=== PATIENT | female | born 1960 | race American Indian/Alaskan Native ===

== ENCOUNTER 2017-08-23 13:21 | Emergency (ER) | payer SELFPAY ==
[2017-08-23] MEDS ORDERED: NACL 0.9% 1000 ML 1,000 ML IV ONE (14:09)
--- NOTE | 2017-08-23 14:13 | Emergency Department Report ---
ED Dizziness HPI - General Chief Complaint: Syncope Stated Complaint: SYNCOPE Time Seen by Provider: 08/23/17 14:03 Source: patient, EMS Mode of arrival: Stretcher Limitations: No Limitations - History of Present Illness Initial Comments: Patient is 57 years old female with history of diabetes on insulin, hypertension and hyperlipidemia. Patient brought to the ER via EMS for evaluation of one episode of near syncope while patient was standing in the kitchen. Patient stated that she did not passed out so she remember what happen. She denied any headache, chest pain or shortness of breath. Patient denied any weakness, numbness or tingling sensation, no bowel or bladder incontinence. Patient stated that she is back to her baseline. Patient also mentioned that she did not take her insulin today. MD Complaint: dizziness, lightheadedness, near syncope - Related Data Allergies Allergy/AdvReac Type Severity Reaction Status Date / Time Penicillins Allergy Unknown Verified 08/23/17 13:52 Sulfa (Sulfonamide Allergy Unknown Verified 08/23/17 13:52 Antibiotics) ED Review of Systems ROS: Stated complaint: SYNCOPE Other details as noted in HPI Comment: All other systems reviewed and negative Constitutional: denies: chills, fever Respiratory: denies: cough, orthopnea, shortness of breath, SOB with exertion Cardiovascular: denies: chest pain, palpitations, dyspnea on exertion Gastrointestinal: denies: abdominal pain, nausea, vomiting, diarrhea, constipation, hematemesis, melena, hematochezia Genitourinary: denies: urgency, dysuria, frequency, hematuria, abnormal menses Neurological: paresthesias (chronic neuropathy especially bilateral lower extremity). denies: headache, weakness Psychiatric: denies: anxiety, depression, auditory hallucinations, visual hallucinations, homicidal thoughts, suicidal thoughts ED Past Medical Hx - Past Medical History Previous Medical History?: Yes Hx Hypertension: Yes Hx Diabetes: Yes Hx GERD: Yes Hx Psychiatric Treatment: Yes (depression) Additional medical history: high cholesterol, neuropathy - Surgical History Past Surgical History?: Yes Additional Surgical History: , myomectomy - Social History Smoking Status: Former Smoker Substance Use Type: None ED Physical Exam - General Limitations: No Limitations General appearance: alert, in no apparent distress - Head Head exam: Present: atraumatic, normocephalic, normal inspection - Eye Eye exam: Present: normal appearance, PERRL - ENT ENT exam: Present: normal exam, normal orophraynx, mucous membranes moist - Neck Neck exam: Present: normal inspection, full ROM. Absent: tenderness, meningismus, lymphadenopathy, thyromegaly - Respiratory Respiratory exam: Present: normal lung sounds bilaterally. Absent: respiratory distress, wheezes, rales, rhonchi, stridor, chest wall tenderness, accessory muscle use, decreased breath sounds, prolonged expiratory - Cardiovascular Cardiovascular Exam: Present: regular rate, normal rhythm, normal heart sounds - GI/Abdominal GI/Abdominal exam: Present: soft, normal bowel sounds. Absent: distended, tenderness, guarding, rebound, rigid, organomegaly, mass, bruit, pulsatile mass , hernia - Extremities Exam Extremities exam: Present: normal inspection, full ROM, normal capillary refill - Back Exam Back exam: Present: normal inspection, full ROM. Absent: tenderness, CVA tenderness (R), CVA tenderness (L), muscle spasm, paraspinal tenderness, vertebral tenderness, rash noted - Neurological Exam Neurological exam: Present: alert, oriented X3, CN II-XII intact, normal gait, reflexes normal. Absent: motor sensory deficit - Skin Skin exam: Present: warm, intact, normal color ED Course Vital Signs 08/23/17 08/23/17 08/23/17 13:46 14:00 14:32 Temperature 98.2 F Pulse Rate 82 77 77 Respiratory 18 15 14 Rate Blood Pressure 121/67 127/77 117/78 O2 Sat by Pulse 100 100 100 Oximetry 08/23/17 08/23/17 08/23/17 15:00 15:30 16:00 Temperature Pulse Rate 75 75 78 Respiratory 12 12 18 Rate Blood Pressure 143/73 153/81 160/84 O2 Sat by Pulse 100 99 99 Oximetry 08/23/17 08/23/17 16:30 18:11 Temperature Pulse Rate 76 73 Respiratory 12 Rate Blood Pressure 159/87 173/89 O2 Sat by Pulse 100 Oximetry - Reevaluation(s) Reevaluation #1: 08/23/17 19:04 Patient stated that she is feeling much better. No syncopal episode or near syncopal episode observed in the ER. Patient initial troponin came back slightly high repeated it came down. Blood sugar now is 242. Patient is still denying any headache, nausea or vomiting. No weakness or numbness or tingling sensation. I advised patient to be compliant with her insulin and to follow-up with her primary care physician in the next 2-3 days. I also advised her to return to the ER if her symptoms are not improving. ED Medical Decision Making - Lab Data Result diagrams: 08/23/17 14:38 08/23/17 14:38 Critical care attestation.: If time is entered above; I have spent that time in minutes in the direct care of this critically ill patient, excluding procedure time. ED Disposition Clinical Impression: Near syncope, Hyperglycemia Disposition: DC-01 TO HOME OR SELFCARE Is pt being admited?: No Condition: Stable Instructions: Syncope (ED), Diabetic Hyperglycemia (ED) Referrals: PRIMARY CARE, [Primary Care Provider] - 3-5 Days
[2017-08-23] MEDS ORDERED: HumuLIN R IV ONE ×2 (15:13→17:36)
[2017-08-23 15:23] LABS: INR 0.82 (0.87-1.13)
[2017-08-23 15:26] LABS: Hematocrit 42.6 % (30.3-42.9); Hemoglobin 14.1 gm/dl (10.1-14.3); Red Blood Count 5.29 M/mm3 (3.65-5.03)
[2017-08-23 15:27] LABS: Mean Corpuscular HGB Conc 33 % (30-34); Mean Corpuscular Hemoglobin 27 pg (28-32); Mean Corpuscular Volume 81 fl (79-97); Mean Platelet Volume 8.4 fl (6-12); Platelet Count 346 K/mm3 (140-440); Red Cell Distribution Width 12.8 % (13.2-15.2)
[2017-08-23 15:28] LABS: Basophils % (Auto) 0.5 % (0.0-1.8); Eosinophils # (Auto) 0.1 K/mm3 (0.0-0.4); Eosinophils % (Auto) 1.1 % (0.0-4.3); Lymphocytes # (Auto) 2.2 K/mm3 (1.2-5.4); Lymphocytes % (Auto) 33.8 % (13.4-35.0); Monocytes # (Auto) 0.3 K/mm3 (0.0-0.8)
[2017-08-23 15:43] LABS: Albumin 2.6 g/dL (3.9-5); Calcium 9.1 mg/dL (8.4-10.2)
[2017-08-23 16:07] LABS: Chol/HDL Ratio 1.8 %
[2017-08-23 17:47] LABS: Bacteria,Urine 1+ /HPF (Negative); Bilirubin,Urine NEG (Negative); Blood,Urine NEG (Negative); Color,Urine Yellow (Yellow); Mucus,Urine FEW /HPF; Urobilinogen,Urine < 2.0 mg/dL (<2.0)
[2017-08-23 17:48] LABS: Protein,Urine >500 mg/dL (Negative)
[2017-08-23] MEDS ORDERED: CATAPRES PO ONE ×2 (18:00→18:06)
[2017-08-23 19:44] VITALS: BP 156/82
--- NOTE | 2017-08-24 14:30 | Cat Scan Report ---
FINAL REPORT PROCEDURE: CT HEAD/BRAIN WO CON TECHNIQUE: Computerized tomography of the head was performed without contrast material. HISTORY: Syncope COMPARISON: No prior studies are available for comparison. FINDINGS: No CT evidence of intracranial mass, hemorrhage, acute territorial infarction, or hydrocephalus. Calvarium is intact. The visualized paranasal sinuses and mastoids are aerated. IMPRESSION: No CT evidence of acute intracranial abnormality
== END 2017-08-23 19:01 | disposition home or self-care (01) ==
LOC: ED 13:21
DX: E11.65 Type 2 diabetes mellitus with hyperglycemia (principal); I10 Essential (primary) hypertension; K21.9 Gastro-esophageal reflux disease without esophagitis; E78.00 Pure hypercholesterolemia, unspecified; F32.2 Major depressive disorder, single episode, severe without psychotic features; Z87.891 Personal history of nicotine dependence; Z88.0 Allergy status to penicillin; Z88.2 Allergy status to sulfonamides; Z79.4 Long term (current) use of insulin
CPT/HCPCS: 36415; 70450; 80053; 80061; 81001; 82962; 83735; 84484; 85025; 85379; 85610; 93005; 93010; 96361; 96374; 96376; 99285; J7030; J1815

== ENCOUNTER 2017-09-15 12:29 | Emergency (ER) | payer SELFPAY ==
[2017-09-15 13:21] LABS: Basophils % (Auto) 0.7 % (0.0-1.8); Eosinophils # (Auto) 0.1 K/mm3 (0.0-0.4); Eosinophils % (Auto) 1.9 % (0.0-4.3); Hematocrit 37.6 % (30.3-42.9); Hemoglobin 12.1 gm/dl (10.1-14.3); Lymphocytes # (Auto) 2.5 K/mm3 (1.2-5.4); Lymphocytes % (Auto) 40.5 % (13.4-35.0); Mean Corpuscular HGB Conc 32 % (30-34); Mean Corpuscular Hemoglobin 26 pg (28-32); Mean Corpuscular Volume 81 fl (79-97); Monocytes # (Auto) 0.4 K/mm3 (0.0-0.8); Monocytes % (Auto) 5.8 % (0.0-7.3); Platelet Count 396 K/mm3 (140-440); Red Blood Count 4.63 M/mm3 (3.65-5.03); Red Cell Distribution Width 12.9 % (13.2-15.2)
[2017-09-15 15:11] LABS: Alanine Aminotransferase 19 units/L (7-56); Albumin 2.6 g/dL (3.9-5); BUN/Creatinine Ratio 33; Blood Urea Nitrogen 33 mg/dL (7-17); Calcium 9.4 mg/dL (8.4-10.2); Hemolysis Index 20
[2017-09-15 17:27] LABS: Bilirubin,Urine NEG (Negative); Blood,Urine NEG (Negative); Color,Urine Yellow (Yellow); Urobilinogen,Urine < 2.0 mg/dL (<2.0)
[2017-09-15 17:33] LABS: Protein,Urine >500 mg/dL (Negative)
[2017-09-15] MEDS ORDERED: LIDOCAINE VISCOUS 2% PO ONE (22:17)
[2017-09-15] MEDS ORDERED: ALUM-MAG HYDROX-SIMETH 200-200-20MG/5ML PO ONE (22:18)
--- NOTE | 2017-09-15 23:14 | Emergency Department Report ---
ED Abdominal Pain HPI - General Chief Complaint: Abdominal Pain Stated Complaint: SHARP PAIN/RIGHT SIDE Time Seen by Provider: 09/15/17 21:25 Source: patient Mode of arrival: Ambulatory Limitations: No Limitations - History of Present Illness Initial Comments: Ms becerra is a 57 year-old woman with hx of IDDM who presents with abdominal pain. Left upper quadrant, epigastric pain. No nausea, no vomiting. Worse when supine, better when sitting up. Normal bowel movements. No pain with urination. hysterectomy. No vaginal d/c or bleeding. MD Complaint: abdominal pain Onset/Timin -: days(s) Location: LUQ, epigastric Radiation: none Migration to: no migration Severity: moderate Quality: aching Consistency: constant Associated Symptoms: denies other symptoms - Related Data Previous Rx's Medication Instructions Recorded Last Taken Type Famotidine 20 mg PO QDAY #30 tablet 09/16/17 Unknown Rx Allergies Allergy/AdvReac Type Severity Reaction Status Date / Time Penicillins Allergy Unknown Verified 08/23/17 13:52 Sulfa (Sulfonamide Allergy Unknown Verified 08/23/17 13:52 Antibiotics) ED Review of Systems ROS: Stated complaint: SHARP PAIN/RIGHT SIDE Other details as noted in HPI Comment: All other systems reviewed and negative ED Past Medical Hx - Past Medical History Previous Medical History?: Yes Hx Hypertension: Yes Hx Diabetes: Yes Hx GERD: Yes Hx Psychiatric Treatment: Yes (depression) Additional medical history: high cholesterol, neuropathy - Surgical History Past Surgical History?: Yes Additional Surgical History: , myomectomy - Social History Smoking Status: Former Smoker Substance Use Type: None - Medications Home Medications: Home Medications Medication Instructions Recorded Confirmed Last Taken Type Famotidine 20 mg PO QDAY #30 tablet 09/16/17 Unknown Rx ED Physical Exam - General Limitations: No Limitations General appearance: alert, in no apparent distress - Head Head exam: Present: atraumatic, normocephalic - Eye Eye exam: Present: normal appearance - ENT ENT exam: Present: mucous membranes moist - Neck Neck exam: Present: normal inspection - Respiratory Respiratory exam: Present: normal lung sounds bilaterally. Absent: respiratory distress - Cardiovascular Cardiovascular Exam: Present: regular rate, normal rhythm. Absent: systolic murmur, diastolic murmur, rubs, gallop - GI/Abdominal GI/Abdominal exam: Present: soft, tenderness (epigastric, LUQ. non-palpable liver). Absent: distended, guarding, rebound, rigid, mass - Extremities Exam Extremities exam: Present: normal inspection - Back Exam Back exam: Present: normal inspection. Absent: tenderness - Neurological Exam Neurological exam: Present: alert, oriented X3 - Psychiatric Psychiatric exam: Present: normal affect, normal mood - Skin Skin exam: Present: warm, dry, intact, normal color. Absent: rash ED Course Vital Signs 09/15/17 09/15/17 12:38 21:56 Temperature 97.9 F 97.8 F Pulse Rate 65 60 Respiratory 16 14 Rate Blood Pressure 174/82 Blood Pressure 175/88 [Left] O2 Sat by Pulse 100 Oximetry ED Medical Decision Making - Lab Data Result diagrams: 09/15/17 12:50 09/15/17 12:50 - Radiology Data Radiology results: report reviewed US Abdomen Limited Imrpession: Probable fatty infiltration of the liver increased renal cortical echogenicity - Medical Decision Making Ms Becerra is a 57 year-old woman with hx of IDDM who presents with epigastric, LUQ pain. 2 days. No n/v. normal PO. Some symptoms sound consistent with GERD ( positional). Exam with RUQ and epigastric ttp. Not peritonitic. Patient has not PCP and poor ability for follow-up. DDX: GERD, gastritis, biliary disease, pancreatitis, hepatitis. Labs wnl, including lipase. Ordered RUQ US as patietn has limited entry point to health care system. RUQ US with fatty liver disease, normal gall bladder and biliary tract. Pain improved with GI cocktail. Will also give H2 lottie. Will start her on H2 lottie and refer to PCP here. DC to home. Given care instructions and return precautions. Critical care attestation.: If time is entered above; I have spent that time in minutes in the direct care of this critically ill patient, excluding procedure time. ED Disposition Clinical Impression: Abdominal pain Qualifiers: Abdominal location: epigastric Qualified Code(s): R10.13 - Epigastric pain Disposition: DC-01 TO HOME OR SELFCARE Is pt being admited?: No Does the pt Need Aspirin: No Condition: Stable Instructions: Gastroesophageal Reflux Disease (ED), Abdominal Pain (ED), Gastritis (ED) Prescriptions: Famotidine 20 mg PO QDAY #30 tablet Referrals: PRIMARY CARE, [Primary Care Provider] - 3-5 Days
[2017-09-16] MEDS ORDERED: PEPCID PO ONE (00:23)
--- NOTE | 2017-09-16 01:00 | Ultrasound Report ---
FINAL REPORT PROCEDURE: US ABDOMEN LIMITED TECHNIQUE: Real-time sonography in multiple planes of the gallbladder fossa and CBD with imaging of the adjacent liver, pancreas, and right kidney was performed with image documentation. CPT 41460 HISTORY: RUQ pain COMPARISON: No prior studies are available for comparison. FINDINGS: Liver: There is coarse echotexture and increased echogenicity, suggesting fatty infiltration. This limits resolution for focal hepatic lesions. Gallbladder: Fluid filled. No gallstones, wall thickening, pericholecystic fluid, or sonographic Charlton's sign . Intrahepatic bile ducts: Normal . Extrahepatic bile ducts: Common bile duct measures 3 millimeters in caliber. Pancreas: Normal as visualized with suboptimal depiction of the pancreatic tail. Right kidney: Increased renal cortical echogenicity, which can be seen with medical renal disease. Other: No free fluid. IMPRESSION: Probable fatty infiltration of the liver. Increased renal cortical echogenicity can be seen with medical renal disease. Correlate clinically
[2017-09-16 01:04] VITALS: BP 187/76
== END 2017-09-16 01:03 | disposition home or self-care (01) ==
LOC: ED 12:29
DX: R10.12 Left upper quadrant pain (principal); I10 Essential (primary) hypertension; K21.9 Gastro-esophageal reflux disease without esophagitis; E78.00 Pure hypercholesterolemia, unspecified; E11.40 Type 2 diabetes mellitus with diabetic neuropathy, unspecified; Z87.891 Personal history of nicotine dependence; Z88.2 Allergy status to sulfonamides
CPT/HCPCS: 36415; 76705; 80053; 81001; 83690; 85025; 99284

== ENCOUNTER 2017-11-02 13:36 | Emergency (ER) | payer SELFPAY ==
[2017-11-02 13:45] VITALS: BP 175/81
--- NOTE | 2017-11-02 15:12 | Emergency Department Report ---
ED Back Pain/Injury HPI - General Chief Complaint: Back Pain/Injury Stated Complaint: LOWER BACK PAIN Time Seen by Provider: 11/02/17 14:59 Source: patient Limitations: No Limitations - History of Present Illness MD Complaint: back pain -: week(s) (3) Similar Symptoms Previously: Yes Radiation: none Severity: moderate Severity scale (0 -10): 6 Quality: burning, sharp Consistency: constant Improves With: none Worsens With: supine, sitting upright, walking Context: turning/twisting, bending Associated Symptoms: denies other symptoms, other (or urinary sympoms). denies : weakness, chest pain, numbness, cough, difficulty urinating, diaphoresis, incontinence, fever/chills, constipation, headaches, abdominal pain, loss of appetite, nausea/vomiting, rash, seizure, shortness of breath, syncope - Related Data Previous Rx's Medication Instructions Recorded Last Taken Type Famotidine 20 mg PO QDAY #30 tablet 09/16/17 Unknown Rx Ibuprofen [Motrin] 600 mg PO Q8H PRN #20 tablet 11/02/17 Unknown Rx methOCARBAMOL [Robaxin TAB] 500 mg PO Q6H PRN #15 tablet 11/02/17 Unknown Rx Allergies Allergy/AdvReac Type Severity Reaction Status Date / Time Penicillins Allergy Unknown Verified 11/02/17 13:43 Sulfa (Sulfonamide Allergy Unknown Verified 11/02/17 13:43 Antibiotics) ED Review of Systems ROS: Stated complaint: LOWER BACK PAIN Other details as noted in HPI Comment: All other systems reviewed and negative ED Past Medical Hx - Past Medical History high cholesterol, neuropathy ED Back Pain Physical Exam - Exam General: Vital signs noted. No distress. Alert and acting appropriately. Back/Abdomen: Yes Perilumbar Tenderness, No Abdominal Tenderness, No Perithoracic Tenderness, No Sacroiliac Tenderness, No Flank Tenderness, No Straight Leg Raise Pain Neuro: Yes Normal Sensation, Yes Normal DTR's, Yes Normal Gait, No Motor Weakness ED Course Vital Signs 11/02/17 13:43 Temperature 98.6 F Pulse Rate 88 Respiratory 18 Rate Blood Pressure 175/81 O2 Sat by Pulse 100 Oximetry ED Medical Decision Making - Medical Decision Making Patient will be seen by financial counselor regarding eligibility for Medicaid. Patient also be started on muscle relaxant for lower back pain and referred to orthopedics [facility]. Critical care attestation.: If time is entered above; I have spent that time in minutes in the direct care of this critically ill patient, excluding procedure time. ED Disposition Clinical Impression: Chronic back pain Qualifiers: Back pain location: low back pain Back pain laterality: bilateral Sciatica presence: without sciatica Qualified Code(s): M54.5 - Low back pain; G89.29 - Other chronic pain Disposition: TO HOME OR SELFCARE Is pt being admited?: No Does the pt Need Aspirin: No Condition: Stable Instructions: Low Back Strain (ED) Referrals: [facility] [Outside] - 3-5 Days ISELA CARDENAS MD [Staff Physician] - 3-5 Days Time of Disposition: 15:12
== END 2017-11-02 15:20 | disposition home or self-care (01) ==
LOC: ED 13:36
DX: M54.5 Low back pain (principal); G89.29 Other chronic pain; E78.00 Pure hypercholesterolemia, unspecified; G62.9 Polyneuropathy, unspecified; Z88.0 Allergy status to penicillin; Z88.2 Allergy status to sulfonamides
CPT/HCPCS: 99282

== ENCOUNTER 2018-10-30 11:20 | Emergency (ER) | payer SELFPAY ==
[2018-10-30 11:46] VITALS: BP 166/74
--- NOTE | 2018-10-30 11:46 | Event Note ---
ED Screening Note Date of service: 10/30/18 Time: 11:42 ED Screening Note: This is a 58 y.o. F. that presents to the ER with BLE edema for 1 month. PMH DM2, HTN, polyneuropathy, & HLD. This initial assessment/diagnostic orders/clinical plan/treatment(s) is/are subject to change based on patients health status, clinical progression and re- assessment by fellow clinical providers in the ED. Further treatment and workup at subsequent clinical providers discretion. Patient/guardian urged not to elope from the ED as their condition may be serious if not clinically assessed and managed. Initial orders include: Labs
[2018-10-30 12:03] LABS: Basophils # (Auto) 0.1 K/mm3 (0.0-0.1); Basophils % (Auto) 0.8 % (0.0-1.8); Eosinophils # (Auto) 0.1 K/mm3 (0.0-0.4); Eosinophils % (Auto) 1.6 % (0.0-4.3); Hemoglobin 12.5 gm/dl (10.1-14.3); Lymphocytes # (Auto) 2.4 K/mm3 (1.2-5.4); Lymphocytes % (Auto) 30.5 % (13.4-35.0); Mean Corpuscular HGB Conc 32 % (30-34); Mean Corpuscular Volume 81 fl (79-97); Monocytes # (Auto) 0.4 K/mm3 (0.0-0.8); Monocytes % (Auto) 5.1 % (0.0-7.3); Platelet Count 367 K/mm3 (140-440); Red Blood Count 4.81 M/mm3 (3.65-5.03); Red Cell Distribution Width 14.3 % (13.2-15.2)
[2018-10-30 12:27] LABS: Albumin 2.3 g/dL (3.9-5); Calcium 8.1 mg/dL (8.4-10.2)
--- NOTE | 2018-10-30 12:54 | Emergency Department Report ---
ED General Adult HPI - General Chief complaint: Extremity Injury, Lower Stated complaint: LEG PAIN/SWOLLEN Time Seen by Provider: 10/30/18 11:42 Source: patient Mode of arrival: Ambulatory Limitations: No Limitations - History of Present Illness Initial comments: Patient is a 58-year-old Female with a past medical history diabetes and hypertension who is presenting with leg swelling for approximately 1 month. Patient was urged to come to the hospital by her brother. Patient states that swelling associated with pain as 7 out of 10 in severity just feels very tight. Patient denies any chest pain shortness of breath fevers chills nausea vomiting. She denies any long travel or recent surgeries - Related Data Previous Rx's Medication Instructions Recorded Last Taken Type Famotidine 20 mg PO QDAY #30 tablet 09/16/17 Unknown Rx Ibuprofen [Motrin] 600 mg PO Q8H PRN #20 tablet 11/02/17 Unknown Rx methOCARBAMOL [Robaxin TAB] 500 mg PO Q6H PRN #15 tablet 11/02/17 Unknown Rx Furosemide [Lasix] 20 mg PO QDAY #7 tablet 10/30/18 Unknown Rx Lisinopril [Zestril TAB] 5 mg PO QDAY #30 tablet 10/30/18 Unknown Rx amLODIPine [Norvasc] 10 mg PO DAILY #30 tab 10/30/18 Unknown Rx Allergies Allergy/AdvReac Type Severity Reaction Status Date / Time Penicillins Allergy Unknown Verified 10/30/18 11:25 Sulfa (Sulfonamide Allergy Unknown Verified 10/30/18 11:25 Antibiotics) ED Review of Systems ROS: Stated complaint: LEG PAIN/SWOLLEN Other details as noted in HPI Comment: All other systems reviewed and negative ED Past Medical Hx - Past Medical History Previous Medical History?: Yes Hx Hypertension: Yes Hx Diabetes: Yes Hx GERD: Yes Hx Psychiatric Treatment: Yes (depression) Additional medical history: high cholesterol, neuropathy - Surgical History Past Surgical History?: Yes Additional Surgical History: , myomectomy, hysterectomy - Social History Smoking Status: Never Smoker Substance Use Type: None - Medications Home Medications: Home Medications Medication Instructions Recorded Confirmed Last Taken Type Famotidine 20 mg PO QDAY #30 tablet 09/16/17 Unknown Rx Ibuprofen [Motrin] 600 mg PO Q8H PRN #20 tablet 11/02/17 Unknown Rx methOCARBAMOL [Robaxin TAB] 500 mg PO Q6H PRN #15 tablet 11/02/17 Unknown Rx Furosemide [Lasix] 20 mg PO QDAY #7 tablet 10/30/18 Unknown Rx Lisinopril [Zestril TAB] 5 mg PO QDAY #30 tablet 10/30/18 Unknown Rx amLODIPine [Norvasc] 10 mg PO DAILY #30 tab 10/30/18 Unknown Rx ED Physical Exam - General Limitations: No Limitations General appearance: alert, in no apparent distress - Head Head exam: Present: atraumatic, normocephalic - Eye Eye exam: Present: normal appearance - ENT ENT exam: Present: mucous membranes moist - Neck Neck exam: Present: normal inspection - Respiratory Respiratory exam: Present: normal lung sounds bilaterally. Absent: respiratory distress, wheezes, rales, rhonchi - Cardiovascular Cardiovascular Exam: Present: regular rate, normal rhythm. Absent: systolic murmur, diastolic murmur, rubs, gallop - GI/Abdominal GI/Abdominal exam: Present: soft, normal bowel sounds. Absent: distended, tenderness, guarding, rebound - Extremities Exam Extremities exam: Present: normal inspection, other (2+ edema bilateral lower extremities at the level of the knee) - Back Exam Back exam: Present: normal inspection - Neurological Exam Neurological exam: Present: alert, oriented X3 - Psychiatric Psychiatric exam: Present: normal affect, normal mood - Skin Skin exam: Present: warm, dry, intact, normal color. Absent: rash ED Course Vital Signs 10/30/18 11:43 Temperature 98.6 F Pulse Rate 74 Respiratory 16 Rate Blood Pressure 166/74 Blood Pressure 166/74 [Left] O2 Sat by Pulse 100 Oximetry ED Medical Decision Making - Lab Data Result diagrams: 10/30/18 11:48 10/30/18 11:48 Lab Results 10/30/18 10/30/18 10/30/18 Range/Units 11:48 11:48 11:48 WBC 7.9 (4.5-11.0) K/mm3 RBC 4.81 (3.65-5.03) M/mm3 Hgb 12.5 (10.1-14.3) gm/dl Hct 39.0 (30.3-42.9) % MCV 81 (79-97) fl MCH 26 L (28-32) pg MCHC 32 (30-34) % RDW 14.3 (13.2-15.2) % Plt Count 367 (140-440) K/mm3 Lymph % (Auto) 30.5 (13.4-35.0) % [place] % (Auto) 5.1 (0.0-7.3) % Eos % (Auto) 1.6 (0.0-4.3) % Baso % (Auto) 0.8 (0.0-1.8) % Lymph # 2.4 (1.2-5.4) K/mm3 [place] # 0.4 (0.0-0.8) K/mm3 Eos # 0.1 (0.0-0.4) K/mm3 Baso # 0.1 (0.0-0.1) K/mm3 Seg Neutrophils % 62.0 (40.0-70.0) % Seg Neutrophils # 4.9 (1.8-7.7) K/mm3 Sodium 138 (137-145) mmol/L Potassium 4.3 (3.6-5.0) mmol/L Chloride 107.2 H (98-107) mmol/L Carbon Dioxide 20 L (22-30) mmol/L Anion Gap 15 mmol/L BUN 28 H (7-17) mg/dL Creatinine 1.8 H (0.7-1.2) mg/dL Estimated GFR 35 ml/min BUN/Creatinine Ratio 16 % Glucose 393 H (65-100) mg/dL Calcium 8.1 L (8.4-10.2) mg/dL Total Bilirubin 0.20 (0.1-1.2) mg/dL AST 9 (5-40) units/L ALT 8 (7-56) units/L Alkaline Phosphatase 93 (35-129) units/L NT-Pro-B Natriuret Pep 1545 H (0-900) pg/mL Total Protein 5.9 L (6.3-8.2) g/dL Albumin 2.3 L (3.9-5) g/dL Albumin/Globulin Ratio 0.6 % - Radiology Data Radiology results: image reviewed (no pulm edema on CXR) - Medical Decision Making Patient is a 58-year-old [place] female who is presenting with lower extremity edema. Patient has several factors that I do believe her injury to her edema. Patient has had poorly controlled blood pressure and this likely is a factor and her swelling developing. Patient likely with early congestive heart failure. Patient also has some renal insufficiency that it also is a factor in the patient's swelling. Patient will have lisinopril added to her blood pressure regimen. Patient started on Lasix. Patient to have follow-up with cardiology. Critical care attestation.: If time is entered above; I have spent that time in minutes in the direct care of this critically ill patient, excluding procedure time. ED Disposition Clinical Impression: Leg edema, Hypertensive urgency, malignant Disposition: DC-01 TO HOME OR SELFCARE Is pt being admited?: No Does the pt Need Aspirin: No Condition: Stable Instructions: Chronic Hypertension (ED), Heart Failure (ED) Additional Instructions: Please follow up with the header up. You'll likely need an ultrasound of the heart called an echocardiogram to determine if you truly have congestive heart failure Referrals: ANNA FLEMING MD [Staff Physician] - 3-5 Days Time of Disposition: 12:56
--- NOTE | 2018-10-30 12:55 | XRay Report ---
CHEST 1 VIEW INDICATION / CLINICAL INFORMATION: edema, chest pain. COMPARISON: None available. FINDINGS: SUPPORT DEVICES: None. HEART / MEDIASTINUM: No significant abnormality. LUNGS / PLEURA: No significant pulmonary or pleural abnormality. Minimal blunting of the left costoph renic angle representing possible tiny effusion. No pneumothorax. ADDITIONAL FINDINGS: No significant additional findings. IMPRESSION: 1. Possible tiny left pleural effusion. Signer Name: Boogie Hurley MD Signed: 10/30/2018 12:51 PM Workstation Name: [id number]
== END 2018-10-30 13:31 | disposition home or self-care (01) ==
LOC: ED 11:20
DX: R60.0 Localized edema (principal); I16.0 Hypertensive urgency; I10 Essential (primary) hypertension; E11.9 Type 2 diabetes mellitus without complications; K21.9 Gastro-esophageal reflux disease without esophagitis; F32.9 Major depressive disorder, single episode, unspecified; Z88.0 Allergy status to penicillin; Z88.2 Allergy status to sulfonamides; Z90.49 Acquired absence of other specified parts of digestive tract; Z98.890 Other specified postprocedural states
CPT/HCPCS: 36415; 71045; 80053; 83880; 85025

== ENCOUNTER 2018-12-25 19:06 | Emergency (ER) | payer OTHER ==
[2018-12-25] MEDS ORDERED: cloNIDine 0.1 MG TAB PO ONE (20:13)
--- NOTE | 2018-12-25 20:13 | Emergency Department Report ---
ED General Adult HPI - General Chief complaint: High BP Stated complaint: SWELLING IN LEGS/HBP Time Seen by Provider: 12/25/18 19:55 Source: EMS Mode of arrival: Stretcher Limitations: No Limitations - History of Present Illness Initial comments: This is a 58-year-old female with a history of hypertension and diabetes with no compliance with medication who presents to ED today due to elevated blood pressure and bilateral lower leg swelling times couple of days. Patient states that she is not able to take medication as she isn't improved 40 because she has no insurance. Patient states she usually takes insulin 70/30 for her diabetes and takes 3 medications for hypertension which is currently not taken. Patient denies chest pain, shortness of breath, headache, blurred vision, abdominal pain or any other problems. She had made some pain on her bilateral lower legs from the swelling Patient states she followed up with cardiology last month and identical cardiology done the stress test and states it was normal findings. - Related Data Previous Rx's Medication Instructions Recorded Last Taken Type Furosemide [Lasix TAB] 40 mg PO DAILY@0600 #30 tablet 11/20/18 Unknown Rx Gabapentin [Neurontin] 400 mg PO TID capsule 11/20/18 Unknown Rx Lisinopril [Zestril TAB] 5 mg PO QDAY #30 tablet 11/20/18 Unknown Rx Metoprolol [Lopressor TAB] 100 mg PO QDAY #30 tablet 11/20/18 Unknown Rx Triamter/Hctz 37.5-25 mg 2 each PO QAM tablet 11/20/18 Unknown Rx [Maxzide-25] hydrALAZINE [Apresoline TAB] 100 mg PO BID #60 tab 11/20/18 Unknown Rx traMADol [Ultram 50 MG tab] 50 mg PO Q12HR PRN #10 tablet 11/20/18 Unknown Rx traZODone [Desyrel] 100 mg PO QHS #30 tablet 11/20/18 Unknown Rx AtorvaSTATin [Lipitor] 80 mg PO QHS #30 tablet 12/26/18 Unknown Rx Gabapentin [Neurontin] 400 mg PO Q8HR #20 cap 12/26/18 Unknown Rx Insulin Aspart Prot/Aspart(Nf) 10 units SQ QAM #300 units 12/26/18 Unknown Rx [NovoLOG Mix 70/30 VIAL] Triamterene/Hydrochlorothiazid 1 each PO QDAY #30 tablet 12/26/18 Unknown Rx [Triamterene-Hctz 75-50 mg Tab] amLODIPine [Norvasc] 10 mg PO DAILY #30 tablet 12/26/18 Unknown Rx Allergies Allergy/AdvReac Type Severity Reaction Status Date / Time Penicillins Allergy Unknown Verified 10/30/18 11:25 Sulfa (Sulfonamide Allergy Unknown Verified 10/30/18 11:25 Antibiotics) ED Review of Systems ROS: Stated complaint: SWELLING IN LEGS/HBP Other details as noted in HPI Comment: All other systems reviewed and negative ED Past Medical Hx - Past Medical History Hx Hypertension: Yes Hx Diabetes: Yes Hx GERD: Yes Hx Psychiatric Treatment: Yes (depression) Additional medical history: high cholesterol, neuropathy - Surgical History Additional Surgical History: , myomectomy, hysterectomy - Social History Smoking Status: Unknown if ever smoked - Medications Home Medications: Home Medications Medication Instructions Recorded Confirmed Last Taken Type Furosemide [Lasix TAB] 40 mg PO DAILY@0600 #30 tablet 11/20/18 Unknown Rx Gabapentin [Neurontin] 400 mg PO TID capsule 11/20/18 Unknown Rx Lisinopril [Zestril TAB] 5 mg PO QDAY #30 tablet 11/20/18 Unknown Rx Metoprolol [Lopressor TAB] 100 mg PO QDAY #30 tablet 11/20/18 Unknown Rx Triamter/Hctz 37.5-25 mg 2 each PO QAM tablet 11/20/18 Unknown Rx [Maxzide-25] hydrALAZINE [Apresoline TAB] 100 mg PO BID #60 tab 11/20/18 Unknown Rx traMADol [Ultram 50 MG tab] 50 mg PO Q12HR PRN #10 tablet 11/20/18 Unknown Rx traZODone [Desyrel] 100 mg PO QHS #30 tablet 11/20/18 Unknown Rx AtorvaSTATin [Lipitor] 80 mg PO QHS #30 tablet 12/26/18 Unknown Rx Gabapentin [Neurontin] 400 mg PO Q8HR #20 cap 12/26/18 Unknown Rx Insulin Aspart Prot/Aspart(Nf) 10 units SQ QAM #300 units 12/26/18 Unknown Rx [NovoLOG Mix 70/30 VIAL] Triamterene/Hydrochlorothiazid 1 each PO QDAY #30 tablet 12/26/18 Unknown Rx [Triamterene-Hctz 75-50 mg Tab] amLODIPine [Norvasc] 10 mg PO DAILY #30 tablet 12/26/18 Unknown Rx ED Physical Exam - General Limitations: No Limitations General appearance: alert, in no apparent distress - Head Head exam: Present: atraumatic, normocephalic - Eye Eye exam: Present: normal appearance - ENT ENT exam: Present: mucous membranes moist - Neck Neck exam: Present: normal inspection - Respiratory Respiratory exam: Present: normal lung sounds bilaterally. Absent: respiratory distress, chest wall tenderness - Cardiovascular Cardiovascular Exam: Present: regular rate, normal rhythm. Absent: systolic murmur, diastolic murmur, rubs, gallop - GI/Abdominal GI/Abdominal exam: Present: soft, normal bowel sounds. Absent: distended, tenderness - Extremities Exam Extremities exam: Present: normal inspection, full ROM, pedal edema (3 + pitting Edema to bilateral feet and lower legs) - Back Exam Back exam: Present: normal inspection - Neurological Exam Neurological exam: Present: alert, oriented X3 - Psychiatric Psychiatric exam: Present: normal affect, normal mood - Skin Skin exam: Present: warm, dry, intact, normal color. Absent: rash ED Course Vital Signs 12/25/18 12/25/18 12/25/18 19:48 20:18 21:00 Temperature 98.1 F Pulse Rate 81 83 80 Respiratory 14 11 L Rate Blood Pressure 211/100 188/99 Blood Pressure 196/90 [Left] O2 Sat by Pulse 99 Oximetry 12/25/18 12/25/18 12/25/18 22:00 23:00 23:47 Temperature Pulse Rate 84 76 75 Respiratory 19 15 16 Rate Blood Pressure 183/83 146/78 146/78 Blood Pressure [Left] O2 Sat by Pulse 100 100 Oximetry 12/26/18 01:00 Temperature Pulse Rate 67 Respiratory 13 Rate Blood Pressure 158/78 Blood Pressure [Left] O2 Sat by Pulse 100 Oximetry ED Medical Decision Making - Lab Data Result diagrams: 12/25/18 21:01 12/25/18 21:01 - Medical Decision Making 58-year-old female with chronic kidney disease, diabetes and hypertension who presents with bilateral pedal edema 2 days. Labs are unchanged from previous visits. Troponin elevated at 0.108, repeat troponin shows decrease. viewed previous lab results which shows troponin was elevated. This is most likely due to his history of chronic kidney disease with diabetes Patient received Lasix 60 mg in the ED. Patient received clonidine 0.1 mg reduced the pressure in the ED. Patient is in no acute distress at this time of reexamination. He is resting comfortably ED. Patient states that she would like to see social work as she is unable to care for herself and wants resources to help with home health services. Vital signs are normal. Patient is in no acute distress She is awaiting mental health social worker Critical care attestation.: If time is entered above; I have spent that time in minutes in the direct care of this critically ill patient, excluding procedure time. ED Disposition Clinical Impression: Chronic kidney disease (CKD), Uncontrolled hypertension Disposition: TO HOME OR SELFCARE Is pt being admited?: No Does the pt Need Aspirin: No Condition: Stable Instructions: Lymphedema (ED), Leg Edema (ED), Chronic Kidney Disease (ED), Hypertension (ED) Additional Instructions: Make sure to follow up with the primary care physician as discussed. Take all your medications as you've been prescribed. If you have any worsening symptoms or develop new symptoms please return to ED immediately. Prescriptions: AtorvaSTATin [Lipitor] 80 mg PO QHS #30 tablet Gabapentin [Neurontin] 400 mg PO Q8HR #20 cap amLODIPine [Norvasc] 10 mg PO DAILY #30 tablet Insulin Aspart Prot/Aspart(Nf) [NovoLOG Mix 70/30 VIAL] 10 units SQ QAM #300 units Triamterene/Hydrochlorothiazid [Triamterene-Hctz 75-50 mg Tab] 1 each PO QDAY #30 tablet Referrals: PRIMARY CARE, [Primary Care Provider] - 3-5 Days [facility] [Provider Group] - 3-5 Days [facility] [Provider Group] - 3-5 Days Forms: Work/School Release Form(ED)
[2018-12-25] MEDS ORDERED: FUROSEMIDE 20 MG TAB PO ONE (20:16)
[2018-12-25] MEDS ORDERED: INSULIN REGULAR, HUMAN 100 UNITS/1 ML IV ONE (20:44)
[2018-12-25 21:16] LABS: Basophils # (Auto) 0.1 K/mm3 (0.0-0.1); Basophils % (Auto) 0.7 % (0.0-1.8); Eosinophils # (Auto) 0.1 K/mm3 (0.0-0.4); Eosinophils % (Auto) 1.4 % (0.0-4.3); Hematocrit 39.7 % (30.3-42.9); Hemoglobin 12.9 gm/dl (10.1-14.3); Lymphocytes # (Auto) 2.7 K/mm3 (1.2-5.4); Mean Corpuscular HGB Conc 32 % (30-34); Mean Corpuscular Volume 81 fl (79-97); Monocytes # (Auto) 0.5 K/mm3 (0.0-0.8); Monocytes % (Auto) 5.8 % (0.0-7.3); Platelet Count 322 K/mm3 (140-440); Red Blood Count 4.89 M/mm3 (3.65-5.03)
[2018-12-25 21:30] LABS: Alanine Aminotransferase 8 units/L (7-56); BUN/Creatinine Ratio 14; Blood Urea Nitrogen 36 mg/dL (7-17); Calcium 7.8 mg/dL (8.4-10.2); Hemolysis Index 31
[2018-12-25 21:31] LABS: INR 0.85 (0.87-1.13)
[2018-12-25 21:50] LABS: Creatine Kinase MB 6.7 ng/mL (0.0-4.0)
[2018-12-25 22:33] LABS: LDL Cholesterol,Direct 377 mg/dL (50-130)
[2018-12-25 22:35] LABS: Chol/HDL Ratio 3.68 %; HDL Cholesterol 135 mg/dL (40-59)
[2018-12-26] MEDS ORDERED: INSULIN REGULAR, HUMAN 100 UNITS/1 ML IV ONE (00:27)
[2018-12-26 09:35] VITALS: BP 188/98
== END 2018-12-26 12:47 | disposition home or self-care (01) ==
LOC: ED 19:06
DX: I12.0 Hypertensive chronic kidney disease with stage 5 chronic kidney disease or end stage renal disease (principal); E11.22 Type 2 diabetes mellitus with diabetic chronic kidney disease; N18.9 Chronic kidney disease, unspecified; E11.40 Type 2 diabetes mellitus with diabetic neuropathy, unspecified; K21.9 Gastro-esophageal reflux disease without esophagitis; E78.00 Pure hypercholesterolemia, unspecified; F32.9 Major depressive disorder, single episode, unspecified; Z90.710 Acquired absence of both cervix and uterus; Z79.899 Other long term (current) drug therapy; Z88.0 Allergy status to penicillin; Z88.2 Allergy status to sulfonamides; Z79.4 Long term (current) use of insulin
CPT/HCPCS: 36415; 80053; 80061; 82550; 82553; 82962; 83880; 84484; 85025; 85610; 85730; 93005; 93010; 96374; J1815

== ENCOUNTER 2019-01-09 15:34 | Emergency (ER) | payer SELFPAY ==
--- NOTE | 2019-01-09 16:02 | Event Note ---
ED Screening Note Date of service: 01/09/19 Time: 15:59 ED Screening Note: This is a 58 y.o. F. that presents to the ER with dyspnea, BLE swelling and low back pain. PMH OF HTN, CKD, DM Patient states she get sob after walking 4-5 steps. This initial assessment/diagnostic orders/clinical plan/treatment(s) is/are subject to change based on patients health status, clinical progression and re- assessment by fellow clinical providers in the ED. Further treatment and workup at subsequent clinical providers discretion. Patient/guardian urged not to elope from the ED as their condition may be serious if not clinically assessed and managed. Initial orders include: Labs, EKG, and CXR
[2019-01-09 16:57] LABS: Basophils # (Auto) 0.1 K/mm3 (0.0-0.1); Eosinophils # (Auto) 0.1 K/mm3 (0.0-0.4); Eosinophils % (Auto) 0.8 % (0.0-4.3); Hematocrit 36.4 % (30.3-42.9); Hemoglobin 11.7 gm/dl (10.1-14.3); Lymphocytes # (Auto) 2.7 K/mm3 (1.2-5.4); Lymphocytes % (Auto) 28.8 % (13.4-35.0); Mean Corpuscular HGB Conc 32 % (30-34); Mean Corpuscular Volume 79 fl (79-97); Monocytes # (Auto) 0.5 K/mm3 (0.0-0.8); Monocytes % (Auto) 5.7 % (0.0-7.3); Platelet Count 485 K/mm3 (140-440); Red Blood Count 4.58 M/mm3 (3.65-5.03); Red Cell Distribution Width 14.8 % (13.2-15.2)
--- NOTE | 2019-01-09 17:13 | XRay Report ---
CHEST 2 VIEWS INDICATION / CLINICAL INFORMATION: edema. COMPARISON: 11/15/2018 FINDINGS: SUPPORT DEVICES: None. HEART / MEDIASTINUM: No significant abnormality. LUNGS / PLEURA: No significant pulmonary or pleural abnormality. No pneumothorax. ADDITIONAL FINDINGS: No significant additional findings. IMPRESSION: 1. No acute findings. Signer Name: Samuel Galicia MD Signed: 01/09/2019 5:08 PM Workstation Name: [id number]
[2019-01-09 17:18] LABS: Alanine Aminotransferase 23 units/L (7-56); BUN/Creatinine Ratio 14; Blood Urea Nitrogen 56 mg/dL (7-17); Calcium 7.2 mg/dL (8.4-10.2); Hemolysis Index 7
[2019-01-09 17:32] LABS: Chol/HDL Ratio 4.24 %
--- NOTE | 2019-01-09 18:01 | Emergency Department Report ---
ED General Adult HPI - General Chief complaint: Medical Clearance Stated complaint: BODY SWELLING/KIDNEY PAIN Time Seen by Provider: 01/09/19 15:59 Source: patient, family Mode of arrival: Wheelchair Limitations: Other - History of Present Illness Initial comments: Patient is a 58-year-old female with a past medical history of hypertension and diabetes and possible congestive heart failure who is presenting with worsening lower extremity edema. Patient states that she was here several weeks ago started on Lasix but her swelling did not improve. Patient states she feels fatigued as well. She denies chest pain, shortness of breath fevers or chills. Patient states that she has a history of chronic renal disease. 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 - Related Data Previous Rx's Medication Instructions Recorded Last Taken Type Furosemide [Lasix TAB] 40 mg PO DAILY@0600 #30 tablet 11/20/18 Unknown Rx Gabapentin [Neurontin] 400 mg PO TID capsule 11/20/18 Unknown Rx Lisinopril [Zestril TAB] 5 mg PO QDAY #30 tablet 11/20/18 Unknown Rx Metoprolol [Lopressor TAB] 100 mg PO QDAY #30 tablet 11/20/18 Unknown Rx Triamter/Hctz 37.5-25 mg 2 each PO QAM tablet 11/20/18 Unknown Rx [Maxzide-25] hydrALAZINE [Apresoline TAB] 100 mg PO BID #60 tab 11/20/18 Unknown Rx traMADol [Ultram 50 MG tab] 50 mg PO Q12HR PRN #10 tablet 11/20/18 Unknown Rx traZODone [Desyrel] 100 mg PO QHS #30 tablet 11/20/18 Unknown Rx AtorvaSTATin [Lipitor] 80 mg PO QHS #30 tablet 12/26/18 Unknown Rx Gabapentin [Neurontin] 400 mg PO Q8HR #20 cap 12/26/18 Unknown Rx Insulin Aspart Prot/Aspart(Nf) 10 units SQ QAM #300 units 12/26/18 Unknown Rx [NovoLOG Mix 70/30 VIAL] Triamterene/Hydrochlorothiazid 1 each PO QDAY #30 tablet 12/26/18 Unknown Rx [Triamterene-Hctz 75-50 mg Tab] amLODIPine [Norvasc] 10 mg PO DAILY #30 tablet 12/26/18 Unknown Rx Allergies Allergy/AdvReac Type Severity Reaction Status Date / Time Penicillins Allergy Unknown Verified 10/30/18 11:25 Sulfa (Sulfonamide Allergy Unknown Verified 10/30/18 11:25 Antibiotics) ED Review of Systems ROS: Stated complaint: BODY SWELLING/KIDNEY PAIN Other details as noted in HPI Comment: All other systems reviewed and negative ED Past Medical Hx - Past Medical History Hx Hypertension: Yes Hx Congestive Heart Failure: Yes Hx Diabetes: Yes Hx GERD: Yes Hx Renal Disease: Yes Hx Psychiatric Treatment: Yes (depression) Additional medical history: high cholesterol, neuropathy - Surgical History Additional Surgical History: , myomectomy, hysterectomy - Social History Smoking Status: Unknown if ever smoked Substance Use Type: None - Medications Home Medications: Home Medications Medication Instructions Recorded Confirmed Last Taken Type Furosemide [Lasix TAB] 40 mg PO DAILY@0600 #30 tablet 11/20/18 Unknown Rx Gabapentin [Neurontin] 400 mg PO TID capsule 11/20/18 Unknown Rx Lisinopril [Zestril TAB] 5 mg PO QDAY #30 tablet 11/20/18 Unknown Rx Metoprolol [Lopressor TAB] 100 mg PO QDAY #30 tablet 11/20/18 Unknown Rx Triamter/Hctz 37.5-25 mg 2 each PO QAM tablet 11/20/18 Unknown Rx [Maxzide-25] hydrALAZINE [Apresoline TAB] 100 mg PO BID #60 tab 11/20/18 Unknown Rx traMADol [Ultram 50 MG tab] 50 mg PO Q12HR PRN #10 tablet 11/20/18 Unknown Rx traZODone [Desyrel] 100 mg PO QHS #30 tablet 11/20/18 Unknown Rx AtorvaSTATin [Lipitor] 80 mg PO QHS #30 tablet 12/26/18 Unknown Rx Gabapentin [Neurontin] 400 mg PO Q8HR #20 cap 12/26/18 Unknown Rx Insulin Aspart Prot/Aspart(Nf) 10 units SQ QAM #300 units 12/26/18 Unknown Rx [NovoLOG Mix 70/30 VIAL] Triamterene/Hydrochlorothiazid 1 each PO QDAY #30 tablet 12/26/18 Unknown Rx [Triamterene-Hctz 75-50 mg Tab] amLODIPine [Norvasc] 10 mg PO DAILY #30 tablet 12/26/18 Unknown Rx ED Physical Exam - General Limitations: Other General appearance: alert, in no apparent distress - Head Head exam: Present: atraumatic, normocephalic - Eye Eye exam: Present: normal appearance, PERRL, EOMI - ENT ENT exam: Present: mucous membranes moist - Neck Neck exam: Present: normal inspection - Respiratory Respiratory exam: Present: normal lung sounds bilaterally. Absent: respiratory distress, wheezes, rales, rhonchi, chest wall tenderness - Cardiovascular Cardiovascular Exam: Present: regular rate, normal rhythm, systolic murmur. Absent: diastolic murmur, rubs, gallop - GI/Abdominal GI/Abdominal exam: Present: soft, normal bowel sounds. Absent: distended, tenderness, guarding, rebound, rigid - Extremities Exam Extremities exam: Present: normal inspection, other (3+ edema to the bilateral lower extremities to the mid thigh) - Back Exam Back exam: Present: normal inspection - Neurological Exam Neurological exam: Present: alert, oriented X3 - Psychiatric Psychiatric exam: Present: normal affect, normal mood - Skin Skin exam: Present: warm, dry, intact, normal color. Absent: rash ED Course Vital Signs 01/09/19 01/09/19 01/09/19 15:55 17:39 17:45 Temperature 97.6 F Pulse Rate 59 L 60 Respiratory 18 12 Rate Blood Pressure 121/54 130/58 134/58 O2 Sat by Pulse 99 98 99 Oximetry ED Medical Decision Making - Lab Data Result diagrams: 01/09/19 16:38 01/09/19 16:38 Lab Results 01/09/19 01/09/19 01/09/19 Range/Units 16:38 16:38 16:38 WBC 9.2 (4.5-11.0) K/mm3 RBC 4.58 (3.65-5.03) M/mm3 Hgb 11.7 (10.1-14.3) gm/dl Hct 36.4 (30.3-42.9) % MCV 79 (79-97) fl MCH 26 L (28-32) pg MCHC 32 (30-34) % RDW 14.8 (13.2-15.2) % Plt Count 485 H (140-440) K/mm3 Lymph % (Auto) 28.8 (13.4-35.0) % Gila % (Auto) 5.7 (0.0-7.3) % Eos % (Auto) 0.8 (0.0-4.3) % Baso % (Auto) 1.0 (0.0-1.8) % Lymph # 2.7 (1.2-5.4) K/mm3 Gila # 0.5 (0.0-0.8) K/mm3 Eos # 0.1 (0.0-0.4) K/mm3 Baso # 0.1 (0.0-0.1) K/mm3 Seg Neutrophils % 63.7 (40.0-70.0) % Seg Neutrophils # 5.9 (1.8-7.7) K/mm3 Sodium 134 L (137-145) mmol/L Potassium 3.7 (3.6-5.0) mmol/L Chloride 103.1 (98-107) mmol/L Carbon Dioxide 15 L (22-30) mmol/L Anion Gap 20 mmol/L BUN 56 H (7-17) mg/dL Creatinine 4.1 H (0.7-1.2) mg/dL Estimated GFR 14 ml/min BUN/Creatinine Ratio 14 % Glucose 277 H (65-100) mg/dL Calcium 7.2 L (8.4-10.2) mg/dL Total Bilirubin < 0.20 (0.1-1.2) mg/dL AST 19 (5-40) units/L ALT 23 (7-56) units/L Alkaline Phosphatase 69 (35-129) units/L Troponin T 0.175 H* (0.00-0.029) ng/mL NT-Pro-B Natriuret Pep 4598 H (0-900) pg/mL Total Protein 5.5 L (6.3-8.2) g/dL Albumin 2.0 L (3.9-5) g/dL Albumin/Globulin Ratio 0.6 % Triglycerides 150 H (2-149) mg/dL Cholesterol 446 H (50-199) mg/dL LDL Cholesterol Direct 328 H (50-130) mg/dL HDL Cholesterol 105 H (40-59) mg/dL Cholesterol/HDL Ratio 4.24 % - EKG Data -: EKG Interpreted by Mt - EKG Data 01/09/19 17:59 KG shows sinus rhythm a rate of 61 normal axis normal intervals. There Q waves present in the anteroseptal leads. There is no evidence of ST segment elevation or depression. Time of interpretation 1615 - Medical Decision Making Review of the patient's chart of patient's been here several times and has a GFR in the mid 20s. Her last creatinine was 2.6 on December 25 which was 15 days ago. Today the patient's BUN/creatinine has dramatically worsened with a creatinine of 4.1. Patient states she still does make some urine. Patient's GFR is 14. Patient's likely will not benefit from additional Lasix at this time and may be a candidate for dialysis. Patient be admitted to the hospital was at this time Critical care attestation.: If time is entered above; I have spent that time in minutes in the direct care of this critically ill patient, excluding procedure time. ED Disposition Clinical Impression: ESRD (end stage renal disease), Elevated troponin, Lower extremity edema, Failure of outpatient treatment Disposition: OP ADMIT IP TO THIS HOSP Is pt being admited?: Yes Does the pt Need Aspirin: No Condition: Stable Time of Disposition: 18:02
--- NOTE | 2019-01-09 18:32 | History and Physical Report ---
History of Present Illness History of present illness: 58 YO Female with HTN, DM, GERD, Depression, HLD presents to ED for evaluation. -year-old history of hypertension, diabetes, GERD, depression, hyperlipidemia comes emergency room with complaints of worsening swelling of legs for 2 weeks. She was seen in the emergency room recently and placed on Lasix 20 mg daily and told to follow up with cardiology. Cardiologists increase her Lasix to 40 mg daily freight made her feel dizzy, she went to the assistance representative on the , her dose was decreased to 20mg eview Of Systems: Constitutional: no weight loss, fever, chills Ears, eyes, nose, mouth and throat: no nasal congestion, no nasal discharge, no sinus pressure, blurry vision, diplopia Neck: No neck pain or rigidity. Cardiovascular: No palpitations, chest pain Respiratory: No shortness of breath, cough Gastrointestinal: No hematochezia, abdominal pain Genitourinary : no dysuria, frequency , hematuria Musculoskeletal: no muscle ache , joint pain Integumentary: no rash, no pruritis Neurological: no parathesias, focal weakness Endocrine: no cold or heat intolerance, no polyuria or polydipsia Hematologic/Lymphatic: no easy bruising, no easy bleeding, no gland swelling Allergic/Immunologic: no urticaria, no angioedema. PAST MEDICAL HISTORY:hypertension, diabetes, GERD, depression, hyperlipidemia PAST SURGICAL HISTORY: Hysterectomy, myomectomy, FAMILY HISTORY:hypertension, diabetes SOCIAL HISTORY: Denies tobacco, drugs, alcohol Patient is a 58-year-old female with a past medical history of hypertension and diabetes and possible congestive heart failure who is presenting with worsening lower extremity edema. Patient states that she was here several weeks ago started on Lasix but her swelling did not improve. Patient states she feels fatigued as well. She denies chest pain, shortness of breath fevers or chills. Patient states that she has a history of chronic renal disease. 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 Hx Hypertension: Yes Hx Congestive Heart Failure: Yes Hx Diabetes: Yes Hx GERD: Yes Hx Renal Disease: Yes Hx Psychiatric Treatment: Yes (depression) Additional medical history: high cholesterol, neuropathy - Surgical History Additional Surgical History: , myomectomy, hysterectomy - Social History Smoking Status: Unknown if ever smoked Substance Use Type: None Medications and Allergies Allergies Allergy/AdvReac Type Severity Reaction Status Date / Time Penicillins Allergy Unknown Verified 10/30/18 11:25 Sulfa (Sulfonamide Allergy Unknown Verified 10/30/18 11:25 Antibiotics) Home Medications Medication Instructions Recorded Confirmed Last Taken Type Furosemide [Lasix TAB] 40 mg PO DAILY@0600 #30 tablet 11/20/18 Unknown Rx Gabapentin [Neurontin] 400 mg PO TID capsule 11/20/18 Unknown Rx Lisinopril [Zestril TAB] 5 mg PO QDAY #30 tablet 11/20/18 Unknown Rx Metoprolol [Lopressor TAB] 100 mg PO QDAY #30 tablet 11/20/18 Unknown Rx Triamter/Hctz 37.5-25 mg 2 each PO QAM tablet 11/20/18 Unknown Rx [Maxzide-25] hydrALAZINE [Apresoline TAB] 100 mg PO BID #60 tab 11/20/18 Unknown Rx traMADol [Ultram 50 MG tab] 50 mg PO Q12HR PRN #10 tablet 11/20/18 Unknown Rx traZODone [Desyrel] 100 mg PO QHS #30 tablet 11/20/18 Unknown Rx AtorvaSTATin [Lipitor] 80 mg PO QHS #30 tablet 12/26/18 Unknown Rx Gabapentin [Neurontin] 400 mg PO Q8HR #20 cap 12/26/18 Unknown Rx Insulin Aspart Prot/Aspart(Nf) 10 units SQ QAM #300 units 12/26/18 Unknown Rx [NovoLOG Mix 70/30 VIAL] Triamterene/Hydrochlorothiazid 1 each PO QDAY #30 tablet 12/26/18 Unknown Rx [Triamterene-Hctz 75-50 mg Tab] amLODIPine [Norvasc] 10 mg PO DAILY #30 tablet 12/26/18 Unknown Rx Exam - Constitutional Vitals: Temp Pulse Resp BP Pulse Ox 97.6 F 60 12 134/58 99 01/09/19 15:55 01/09/19 17:45 01/09/19 17:58 01/09/19 17:45 01/09/19 17:58 Results - Labs CBC & Chem 7: 01/09/19 16:38 01/09/19 16:38 Labs: Abnormal lab results 01/09/19 01/09/19 01/09/19 Range/Units 16:38 16:38 16:38 MCH 26 L (28-32) pg Plt Count 485 H (140-440) K/mm3 Sodium 134 L (137-145) mmol/L Carbon Dioxide 15 L (22-30) mmol/L BUN 56 H (7-17) mg/dL Creatinine 4.1 H (0.7-1.2) mg/dL Glucose 277 H (65-100) mg/dL Calcium 7.2 L (8.4-10.2) mg/dL Troponin T 0.175 H* (0.00-0.029) ng/mL NT-Pro-B Natriuret Pep 4598 H (0-900) pg/mL Total Protein 5.5 L (6.3-8.2) g/dL Albumin 2.0 L (3.9-5) g/dL Triglycerides 150 H (2-149) mg/dL Cholesterol 446 H (50-199) mg/dL LDL Cholesterol Direct 328 H (50-130) mg/dL HDL Cholesterol 105 H (40-59) mg/dL
[2019-01-09 20:00] VITALS: BP 137/67
--- NOTE | 2019-01-09 20:37 | Event Note ---
Date: 01/09/19 58 YO Female with CKD 4 presents to ED for evaluation. Pt states that her sister is concerned regarding her leg swelling. Pt denies symptoms. Pt seen and evaluated in ED. Pt medically optimized. Pt counseled regarding noncompliance with outpatient F/U care. Pt discharged home and instructed to continue all current medication. Pt instructed to F/U with nephrology in AM for further care. Pt was seen during last admission by Dr. Connolly and associates and the patient is given information for f/u care and planning for future dialysis. ED Physical Exam - General Limitations: Other General appearance: alert, in no apparent distress - Head Head exam: Present: atraumatic, normocephalic - Eye Eye exam: Present: normal appearance, PERRL, EOMI - ENT ENT exam: Present: mucous membranes moist - Neck Neck exam: Present: normal inspection - Respiratory Respiratory exam: Present: normal lung sounds bilaterally. Absent: respiratory distress, wheezes, rales, rhonchi, chest wall tenderness - Cardiovascular Cardiovascular Exam: Present: regular rate, normal rhythm, systolic murmur. Absent: diastolic murmur, rubs, gallop - GI/Abdominal GI/Abdominal exam: Present: soft, normal bowel sounds. Absent: distended, tenderness, guarding, rebound, rigid - Extremities Exam Extremities exam: Present: normal inspection, other BLE Edema) - Back Exam Back exam: Present: normal inspection - Neurological Exam Neurological exam: Present: alert, oriented X3 - Psychiatric Psychiatric exam: Present: normal affect, normal mood - Skin Skin exam: Present: warm, dry, intact, normal color. Absent: rash
== END 2019-01-09 20:00 | disposition home or self-care (01) ==
LOC: ED 15:34
DX: R60.0 Localized edema (principal); R74.8 Abnormal levels of other serum enzymes; I13.2 Hypertensive heart and chronic kidney disease with heart failure and with stage 5 chronic kidney disease, or end stage renal disease; E11.22 Type 2 diabetes mellitus with diabetic chronic kidney disease; N18.6 End stage renal disease; I50.9 Heart failure, unspecified; K21.9 Gastro-esophageal reflux disease without esophagitis; F32.9 Major depressive disorder, single episode, unspecified; Z79.4 Long term (current) use of insulin; Z90.710 Acquired absence of both cervix and uterus; Z88.0 Allergy status to penicillin; Z88.2 Allergy status to sulfonamides
CPT/HCPCS: 36415; 71046; 80053; 80061; 83880; 84484; 85025; 93005; 93010

== ENCOUNTER 2019-01-11 17:16 | Inpatient (IN) | payer OTHER ==
--- NOTE | 2019-01-11 18:23 | XRay Report ---
CHEST 2 VIEWS INDICATION / CLINICAL INFORMATION: Chest Pain. COMPARISON: 01/09/2019. FINDINGS: SUPPORT DEVICES: None. HEART / MEDIASTINUM: The heart size and pulmonary vasculature are normal. LUNGS / PLEURA: There is a minimal right pleural effusion which is similar to the prior exam. The selena gs are otherwise clear. No pneumothorax. ADDITIONAL FINDINGS: No significant additional findings. IMPRESSION: Minimal right pleural effusion, probably unchanged. Signer Name: Armaan Mejia MD Signed: 01/11/2019 6:19 PM Workstation Name: [id number]
[2019-01-11 18:53] LABS: Basophils % (Auto) 0.6 % (0.0-1.8); Eosinophils # (Auto) 0.1 K/mm3 (0.0-0.4); Eosinophils % (Auto) 0.7 % (0.0-4.3); Hematocrit 35.7 % (30.3-42.9); Hemoglobin 11.5 gm/dl (10.1-14.3); Lymphocytes # (Auto) 1.8 K/mm3 (1.2-5.4); Mean Corpuscular HGB Conc 32 % (30-34); Mean Corpuscular Volume 79 fl (79-97); Monocytes # (Auto) 0.4 K/mm3 (0.0-0.8); Monocytes % (Auto) 4.9 % (0.0-7.3); Platelet Count 494 K/mm3 (140-440); Red Blood Count 4.53 M/mm3 (3.65-5.03)
[2019-01-11 19:08] LABS: Calcium 7.5 mg/dL (8.4-10.2)
--- NOTE | 2019-01-11 22:57 | Emergency Department Report ---
ED General Adult HPI - General Chief complaint: Dyspnea/Respdistress Stated complaint: SOB/CHF Time Seen by Provider: 01/11/19 22:46 Source: patient Mode of arrival: Wheelchair Limitations: No Limitations - History of Present Illness Initial comments: 58-year-old female past medical history of chronic renal insufficiency, CHF, diabetes, GERD, hypertension, depression, and elevated cholesterol presents to the hospital complaints of lower extremity edema progressing worsening for over one month. Swelling is at the point now where patient is unable to ambulate due to pain to lower extremities. Patient endorses dyspnea on exertion. She sleeps on 2 pillows but is able to lie flat without shortness of breath. Patient here Dec 26 with medication noncompliance. Patient states she is now taking the medications as prescribed and continues to have leg swelling. She was here on January 09 with admission recommended by ER physician for worsening renal function and leg edema. Patient was sent home by hospitalist to follow up with PMD. Patient had her first visit with Dr. Marin today and was sent to the ER for admission. Patient was admitted here in October with acute on chronic renal insufficiency with proteinuria. She was evaluated by Dr. Arndt and follow-up for possible outpatient renal biopsy was recommended. Patient was unable to follow-up due to lack of insurance. Patient has noticed decreasing urine output. She urinated one time yesterday and has not had any urine output today. Severity scale (0 -10): 5 - Related Data Previous Rx's Medication Instructions Recorded Last Taken Type Furosemide [Lasix TAB] 40 mg PO DAILY@0600 #30 tablet 11/20/18 Unknown Rx Gabapentin [Neurontin] 400 mg PO TID capsule 11/20/18 Unknown Rx Lisinopril [Zestril TAB] 5 mg PO QDAY #30 tablet 11/20/18 Unknown Rx Metoprolol [Lopressor TAB] 100 mg PO QDAY #30 tablet 11/20/18 Unknown Rx Triamter/Hctz 37.5-25 mg 2 each PO QAM tablet 11/20/18 Unknown Rx [Maxzide-25] hydrALAZINE [Apresoline TAB] 100 mg PO BID #60 tab 11/20/18 Unknown Rx traMADol [Ultram 50 MG tab] 50 mg PO Q12HR PRN #10 tablet 11/20/18 Unknown Rx traZODone [Desyrel] 100 mg PO QHS #30 tablet 11/20/18 Unknown Rx AtorvaSTATin [Lipitor] 80 mg PO QHS #30 tablet 12/26/18 Unknown Rx Gabapentin [Neurontin] 400 mg PO Q8HR #20 cap 12/26/18 Unknown Rx Insulin Aspart Prot/Aspart(Nf) 10 units SQ QAM #300 units 12/26/18 Unknown Rx [NovoLOG Mix 70/30 VIAL] Triamterene/Hydrochlorothiazid 1 each PO QDAY #30 tablet 12/26/18 Unknown Rx [Triamterene-Hctz 75-50 mg Tab] amLODIPine [Norvasc] 10 mg PO DAILY #30 tablet 12/26/18 Unknown Rx Allergies Allergy/AdvReac Type Severity Reaction Status Date / Time Penicillins Allergy Unknown Verified 10/30/18 11:25 Sulfa (Sulfonamide Allergy Unknown Verified 10/30/18 11:25 Antibiotics) ED Review of Systems ROS: Stated complaint: SOB/CHF Other details as noted in HPI Comment: All other systems reviewed and negative ED Past Medical Hx - Past Medical History Previous Medical History?: Yes Hx Hypertension: Yes Hx Congestive Heart Failure: Yes Hx Diabetes: Yes Hx GERD: Yes Hx Renal Disease: Yes Hx Psychiatric Treatment: Yes (depression) Additional medical history: high cholesterol, neuropathy - Surgical History Past Surgical History?: Yes Additional Surgical History: , myomectomy, hysterectomy - Social History Smoking Status: Never Smoker Substance Use Type: None - Medications Home Medications: Home Medications Medication Instructions Recorded Confirmed Last Taken Type Furosemide [Lasix TAB] 40 mg PO DAILY@0600 #30 tablet 11/20/18 Unknown Rx Gabapentin [Neurontin] 400 mg PO TID capsule 11/20/18 Unknown Rx Lisinopril [Zestril TAB] 5 mg PO QDAY #30 tablet 11/20/18 Unknown Rx Metoprolol [Lopressor TAB] 100 mg PO QDAY #30 tablet 11/20/18 Unknown Rx Triamter/Hctz 37.5-25 mg 2 each PO QAM tablet 11/20/18 Unknown Rx [Maxzide-25] hydrALAZINE [Apresoline TAB] 100 mg PO BID #60 tab 11/20/18 Unknown Rx traMADol [Ultram 50 MG tab] 50 mg PO Q12HR PRN #10 tablet 11/20/18 Unknown Rx traZODone [Desyrel] 100 mg PO QHS #30 tablet 11/20/18 Unknown Rx AtorvaSTATin [Lipitor] 80 mg PO QHS #30 tablet 12/26/18 Unknown Rx Gabapentin [Neurontin] 400 mg PO Q8HR #20 cap 12/26/18 Unknown Rx Insulin Aspart Prot/Aspart(Nf) 10 units SQ QAM #300 units 12/26/18 Unknown Rx [NovoLOG Mix 70/30 VIAL] Triamterene/Hydrochlorothiazid 1 each PO QDAY #30 tablet 12/26/18 Unknown Rx [Triamterene-Hctz 75-50 mg Tab] amLODIPine [Norvasc] 10 mg PO DAILY #30 tablet 12/26/18 Unknown Rx ED Physical Exam - General Limitations: No Limitations - Other Other exam information: General: No acute distress Head: Atraumatic Eyes: normal appearance ENT: Moist mucous membranes Neck: Normal appearance Chest: Clear to auscultation bilaterally CV: bradycardia, regular rhythm Abdomen: Soft, normal bowel sounds, nontender, nondistended, no rebound or guarding Back: Normal inspection Extremity: Normal inspection infection, lower extremity swelling bilateral edema 2+ pitting, symmetric, no calf swelling Neuro: Alert O x 3, no facial asymmetry, speech clear, no gross motor sensory deficit Psych: Appropriate behavior Skin: No rash ED Course Vital Signs 01/11/19 01/11/19 17:31 22:35 Pulse Rate 51 L 50 L Respiratory 20 8 L Rate Blood Pressure 93/44 104/51 [Right] O2 Sat by Pulse 100 100 Oximetry - Consultations Consultation #1: 01/11/19 23:08 Case d/w Dr Langford management consulting neurologist ED Medical Decision Making - Lab Data Result diagrams: 01/11/19 17:42 01/11/19 17:42 Lab Results 01/11/19 01/11/19 Range/Units 17:42 17:42 WBC 8.0 (4.5-11.0) K/mm3 RBC 4.53 (3.65-5.03) M/mm3 Hgb 11.5 (10.1-14.3) gm/dl Hct 35.7 (30.3-42.9) % MCV 79 (79-97) fl MCH 25 L (28-32) pg MCHC 32 (30-34) % RDW 15.0 (13.2-15.2) % Plt Count 494 H (140-440) K/mm3 Lymph % (Auto) 22.0 (13.4-35.0) % [place] % (Auto) 4.9 (0.0-7.3) % Eos % (Auto) 0.7 (0.0-4.3) % Baso % (Auto) 0.6 (0.0-1.8) % Lymph # 1.8 (1.2-5.4) K/mm3 [place] # 0.4 (0.0-0.8) K/mm3 Eos # 0.1 (0.0-0.4) K/mm3 Baso # 0.0 (0.0-0.1) K/mm3 Seg Neutrophils % 71.8 H (40.0-70.0) % Seg Neutrophils # 5.7 (1.8-7.7) K/mm3 Sodium 134 L (137-145) mmol/L Potassium 4.5 D (3.6-5.0) mmol/L Chloride 101.4 (98-107) mmol/L Carbon Dioxide 17 L (22-30) mmol/L Anion Gap 20 mmol/L BUN 64 H (7-17) mg/dL Creatinine 4.6 H (0.7-1.2) mg/dL Estimated GFR 12 ml/min BUN/Creatinine Ratio 14 % Glucose 284 H (65-100) mg/dL Calcium 7.5 L (8.4-10.2) mg/dL Troponin T 0.148 H* (0.00-0.029) ng/mL NT-Pro-B Natriuret Pep 5277 H (0-900) pg/mL - EKG Data -: EKG Interpreted by Pr EKG shows normal: sinus rhythm, axis (qrs 23), QRS complexes (qrsd 89), ST-T wav es (no stemi/t inv) Rate: normal - Radiology Data Radiology results: report reviewed CHEST 2 VIEWS INDICATION / CLINICAL INFORMATION: Chest Pain. COMPARISON: 01/09/2019. FINDINGS: SUPPORT DEVICES: None. HEART / MEDIASTINUM: The heart size and pulmonary vasculature are normal. LUNGS / PLEURA: There is a minimal right pleural effusion which is similar to the prior exam. The lungs are otherwise clear. No pneumothorax. ADDITIONAL FINDINGS: No significant additional findings. IMPRESSION: Minimal right pleural effusion, probably unchanged. - Medical Decision Making Patient presents bilateral lower extremity edema at that time her Doppler was negative for DVT. No leg asymmetry or calf enderness today. Swelling is symmetrical. Worsening creatinine noted with decreased urine output. No hyperkalemia or indications for acute dialysis at this time. Case has been discussed with on-call safety sealer who will evaluate patient for admission. Patient does not present to the ER with her current medication list. Patient's troponin noted to be elevated and likely chronic secondary to renal insufficiency. Unchanged compared to previous. No signs of ST elevation OK on EKG and patient does not complain of chest pain. - Differential Diagnosis renal failure, CHF, DVT Critical Care Time: No Critical care attestation.: If time is entered above; I have spent that time in minutes in the direct care of this critically ill patient, excluding procedure time. ED Disposition Clinical Impression: Acute kidney injury superimposed on chronic kidney disease, Bilateral lower extremity edema Disposition: OP ADMIT IP TO THIS HOSP Is pt being admited?: Yes Condition: Stable Time of Disposition: 23:14 (Dr Saenz/hospitalist informed)
--- NOTE | 2019-01-11 23:42 | History and Physical Report ---
History of Present Illness Date of examination: 01/12/19 History of present illness: 58-year-old history of CHF, hypertension, diabetes, GERD, depression, hyperlipidemia comes emergency room with complaints of worsening swelling of leg is now unable to walk and also complain of decreased urine output. She has urinated once a day. She was seen here in the emergency room on 2 previous occasions and was discharged home. Primary care physician who sent her here to the emergency room for admission and complaining of mild shortness of breath. On last admission she had nephrotic range proteinuria, and was advised to obtain biopsy and follow-up with renal as an outpatient but she never did. She found to be hypothermic in the emergency room eview Of Systems: Constitutional: no weight loss, fever, chills Ears, eyes, nose, mouth and throat: no nasal congestion, no nasal discharge, no sinus pressure, blurry vision, diplopia Neck: No neck pain or rigidity. Cardiovascular: No palpitations, chest pain Respiratory: No shortness of breath, cough Gastrointestinal: No hematochezia, abdominal pain Genitourinary : no dysuria, frequency , hematuria Musculoskeletal: no muscle ache , joint pain Integumentary: no rash, no pruritis Neurological: no parathesias, focal weakness Endocrine: no cold or heat intolerance, no polyuria or polydipsia Hematologic/Lymphatic: no easy bruising, no easy bleeding, no gland swelling Allergic/Immunologic: no urticaria, no angioedema. PAST MEDICAL HISTORY:CHF, hypertension, diabetes, GERD, depression, hyperlipidemia PAST SURGICAL HISTORY: Hysterectomy, myomectomy, FAMILY HISTORY:hypertension, diabetes SOCIAL HISTORY: Denies tobacco, drugs, alcohol Medications and Allergies Allergies Allergy/AdvReac Type Severity Reaction Status Date / Time Penicillins Allergy Unknown Verified 10/30/18 11:25 Sulfa (Sulfonamide Allergy Unknown Verified 10/30/18 11:25 Antibiotics) Home Medications Medication Instructions Recorded Confirmed Last Taken Type Furosemide [Lasix TAB] 40 mg PO DAILY@0600 #30 tablet 11/20/18 Unknown Rx Gabapentin [Neurontin] 400 mg PO TID capsule 11/20/18 Unknown Rx Lisinopril [Zestril TAB] 5 mg PO QDAY #30 tablet 11/20/18 Unknown Rx Metoprolol [Lopressor TAB] 100 mg PO QDAY #30 tablet 11/20/18 Unknown Rx Triamter/Hctz 37.5-25 mg 2 each PO QAM tablet 11/20/18 Unknown Rx [Maxzide-25] hydrALAZINE [Apresoline TAB] 100 mg PO BID #60 tab 11/20/18 Unknown Rx traMADol [Ultram 50 MG tab] 50 mg PO Q12HR PRN #10 tablet 11/20/18 Unknown Rx traZODone [Desyrel] 100 mg PO QHS #30 tablet 11/20/18 Unknown Rx AtorvaSTATin [Lipitor] 80 mg PO QHS #30 tablet 12/26/18 Unknown Rx Gabapentin [Neurontin] 400 mg PO Q8HR #20 cap 12/26/18 Unknown Rx Insulin Aspart Prot/Aspart(Nf) 10 units SQ QAM #300 units 12/26/18 Unknown Rx [NovoLOG Mix 70/30 VIAL] Triamterene/Hydrochlorothiazid 1 each PO QDAY #30 tablet 12/26/18 Unknown Rx [Triamterene-Hctz 75-50 mg Tab] amLODIPine [Norvasc] 10 mg PO DAILY #30 tablet 12/26/18 Unknown Rx Active Meds: Active Medications Enoxaparin Sodium (Lovenox) 30 mg SUB-Q QDAY [facility] Levofloxacin/Dextrose (Levaquin 500mg/100ml) 500 mg in 100 mls @ 100 mls/hr IV Q48H [facility]; Protocol Vancomycin HCl 500 mg/ Sodium (Chloride) 510 mls @ 333 mls/hr IV ONCE ONE; Protocol Stop: 01/12/19 01:16 Exam - Physical Exam Narrative exam: General Apperance: The patient sitting in bed no acute distress HEENT: Normocephalic, atraumatic. Pupils equally round and reactive to light, extraocular movement intact, and no sclericterus or JVD or thyromegaly or nodule. Neck supple, no carotid bruit, mucous membranes moist, no exudate or erythema Heart: S1-S2, regular is rhythm Lungs: Clear to auscultation bilaterally, breathing comfortable Abdomen: Positive bowel sounds, soft, nontender, nondistended, no organomegaly Extremities:2+ edema no cyanosis clubbing Skin: no rash, nodule, warm and dry Neuro:CN 2 -12 intact, motor/sensory intact, speech is fluent - Constitutional Vitals: Temp Pulse Resp BP Pulse Ox 903 F H 50 L 8 L 104/51 100 01/11/19 23:20 01/11/19 22:35 01/11/19 22:35 01/11/19 22:35 01/11/19 22:35 Results - Labs CBC & Chem 7: 01/11/19 17:42 01/11/19 17:42 Labs: Abnormal lab results 01/11/19 01/11/19 01/11/19 Range/Units 17:42 17:42 23:38 MCH 25 L (28-32) pg Plt Count 494 H (140-440) K/mm3 Seg Neutrophils % 71.8 H (40.0-70.0) % Sodium 134 L (137-145) mmol/L Carbon Dioxide 17 L (22-30) mmol/L BUN 64 H (7-17) mg/dL Creatinine 4.6 H (0.7-1.2) mg/dL Glucose 284 H (65-100) mg/dL POC Glucose 313 H (70-105) Calcium 7.5 L (8.4-10.2) mg/dL Troponin T 0.148 H* (0.00-0.029) ng/mL NT-Pro-B Natriuret Pep 5277 H (0-900) pg/mL - Imaging and Cardiology EKG: image reviewed Chest x-ray: report reviewed Assessment and Plan Assessment Acute on chronic kidney disease, suspect nephrotic syndrome Abnormal cardiac enzyme, chronically elevated Hypothermia CHF, stable Hypotension, relative Diabetes GERD Depression Hyperlipidemia Plan Admit to medicine Continue beta lottie, renal was consulted to see the patient Cardiac enzymes, consult cardiology Start emperic Antibiotic, follow cultures Check fingersticks initiate insulin sliding-scale Continue appropriate outpatient medications DVT prophylaxis
[2019-01-12] MEDS ORDERED: VANCOMYCIN 500 MG in SODIUM CHLORIDE 0.9% 100 ML IV ONE
[2019-01-12 00:18] LABS: Free T4 (Free Thyroxine) 0.99 ng/dL (0.76-1.46)
[2019-01-12] MEDS ORDERED: ONDANSETRON 4 MG/2 ML INJ IV PRN (00:49)
[2019-01-12] MEDS ORDERED: DEXTROSE 50% IN WATER (25GM) 50 ML SYRINGE IV PRN (01:54)
[2019-01-12] MEDS ORDERED: INSULIN REGULAR, HUMAN 100 UNITS/1 ML SUB-Q ONE (02:02)
[2019-01-12] MEDS ORDERED: INSULIN REGULAR, HUMAN 100 UNITS/1 ML ONE (02:12)
[2019-01-12] MEDS: INSULIN REGULAR, HUMAN 100 UNITS/1 ML SUB-Q SCH ×5 (03:05→21:56)
[2019-01-12 05:00] LABS: Basophils % (Auto) 0.2 % (0.0-1.8); Eosinophils % (Auto) 0.2 % (0.0-4.3); Hematocrit 32.2 % (30.3-42.9); Hemoglobin 10.5 gm/dl (10.1-14.3); Lymphocytes # (Auto) 1.6 K/mm3 (1.2-5.4); Lymphocytes % (Auto) 21.4 % (13.4-35.0); Mean Corpuscular HGB Conc 33 % (30-34); Mean Corpuscular Volume 79 fl (79-97); Monocytes # (Auto) 0.2 K/mm3 (0.0-0.8); Monocytes % (Auto) 2.7 % (0.0-7.3); Platelet Count 418 K/mm3 (140-440); Red Blood Count 4.06 M/mm3 (3.65-5.03); Red Cell Distribution Width 14.7 % (13.2-15.2)
[2019-01-12 05:15] LABS: Calcium 7.1 mg/dL (8.4-10.2)
[2019-01-12] MEDS: FUROSEMIDE 20 MG TAB PO SCH (10:41)
[2019-01-12] MEDS: ENOXAPARIN 30 MG/0.3 ML INJ SUB-Q SCH (10:41)
[2019-01-12] MEDS ORDERED: FLU VACC QUAD 2019-20 (3 YR UP)/PF 60 MCG/0.5 ML SYRINGE IM ONE (12:00)
[2019-01-12] MEDS ORDERED: PNEUMOCOCCAL 23 Valent 0.5 ML VIAL IM ONE (12:00)
--- NOTE | 2019-01-12 12:42 | Consultation ---
History of Present Illness - Reason for Consult Consult date: 01/12/19 chronic renal failure, end stage renal disease Requesting physician: ANGELITO HUTTON - History of Present Illness This is a 58 yo AAF with PMHx of hypertension, uncontrolled Type 2 DM diagnosed > 20 years ago, GERD, depression, hyperlipidemia, advanced CKD secondary to biopsy proven diabetic nephropathy, who presented to [facility] ER with complaints of worsening swelling of leg, to the degree that she has diffculty to walk, also complain of decreased urine output. Labs in ER showed elevated BUN/Cr at 69/4.8mg/dl for which renal consult is requested. Pt is well known to me from last hospitalization in 10/2018 when she was found to have advanced CKD along with nephrotic range proteinuria > 10g/g and at that time renal biopsy was obtained which showed advanced CKD. Pt now also c/o SOTO, SOB, nausea, decreased appetite, consistent with ureimc symptoms. Past History Past Medical History: diabetes, ESRD, hypertension, renal failure Past Surgical History: , hysterectomy, Other (renal biopsy ) Social history: denies: smoking, alcohol abuse, prescription drug abuse, IV drug use Family history: hypertension Medications and Allergies Allergies Allergy/AdvReac Type Severity Reaction Status Date / Time Penicillins Allergy Unknown Verified 10/30/18 11:25 Sulfa (Sulfonamide Allergy Unknown Verified 10/30/18 11:25 Antibiotics) Home Medications Medication Instructions Recorded Confirmed Last Taken Type Furosemide [Lasix TAB] 40 mg PO DAILY@0600 #30 tablet 11/20/18 01/12/19 Unknown Rx Gabapentin [Neurontin] 400 mg PO TID capsule 11/20/18 01/12/19 01/11/19 Rx Lisinopril [Zestril TAB] 5 mg PO QDAY #30 tablet 11/20/18 01/12/19 01/11/19 Rx Metoprolol [Lopressor TAB] 100 mg PO QDAY #30 tablet 11/20/18 01/12/19 01/11/19 Rx Triamter/Hctz 37.5-25 mg 2 each PO QAM tablet 11/20/18 01/12/19 01/11/19 Rx [Maxzide-25] hydrALAZINE [Apresoline TAB] 100 mg PO BID #60 tab 11/20/18 01/12/19 Unknown Rx traMADol [Ultram 50 MG tab] 50 mg PO Q12HR PRN #10 tablet 11/20/18 01/12/19 Unknown Rx traZODone [Desyrel] 100 mg PO QHS #30 tablet 11/20/18 01/12/19 Unknown Rx AtorvaSTATin [Lipitor] 80 mg PO QHS #30 tablet 12/26/18 01/12/19 Unknown Rx Gabapentin [Neurontin] 400 mg PO Q8HR #20 cap 12/26/18 01/12/19 01/11/19 Rx Insulin Aspart Prot/Aspart(Nf) 10 units SQ QAM #300 units 12/26/18 01/12/19 01/11/19 Rx [NovoLOG Mix 70/30 VIAL] Triamterene/Hydrochlorothiazid 1 each PO QDAY #30 tablet 12/26/18 01/12/19 01/11/19 Rx [Triamterene-Hctz 75-50 mg Tab] amLODIPine [Norvasc] 10 mg PO DAILY #30 tablet 12/26/18 01/12/19 01/11/19 Rx Active Meds: Active Medications Acetaminophen (Tylenol) 650 mg PO Q4H PRN PRN Reason: Pain MILD(1-3)/Fever >100.5/[place] Atorvastatin Calcium (Lipitor) 80 mg PO QHS [facility] Dextrose (D50w (25gm) Syringe) 50 ml IV Q30MIN PRN PRN Reason: Hypoglycemia Enoxaparin Sodium (Lovenox) 30 mg SUB-Q QDAY [facility] Last Admin: 01/12/19 10:41 Dose: 30 mg Documented by: Furosemide (Lasix) 20 mg PO QDAY [facility] Last Admin: 01/12/19 10:41 Dose: 20 mg Documented by: Gabapentin (Neurontin) 400 mg PO Q8HR [facility] Levofloxacin/Dextrose (Levaquin 500mg/100ml) 500 mg in 100 mls @ 100 mls/hr IV Q48H [facility]; Protocol Last Admin: 01/12/19 00:52 Dose: 100 mls/hr Documented by: Insulin Human Regular (Humulin R) 0 units SUB-Q ACHS [facility]; Protocol Last Admin: 01/12/19 08:00 Dose: 4 units Documented by: Ondansetron HCl (Zofran) 4 mg IV Q8H PRN PRN Reason: Nausea And Vomiting Sodium Chloride (Sodium Chloride Flush Syringe 10 Ml) 10 ml IV BID [facility] Last Admin: 01/12/19 10:42 Dose: 10 ml Documented by: Sodium Chloride (Sodium Chloride Flush Syringe 10 Ml) 10 ml IV PRN PRN PRN Reason: LINE FLUSH Review of Systems All systems: negative Constitutional: fatigue, weakness, malaise Cardiovascular: shortness of breath, dyspnea on exertion, leg edema Exam - Vital Signs Vital signs: Vital Signs Pulse Resp BP Pulse Ox 51 L 20 93/44 100 01/11/19 17:31 01/11/19 17:31 01/11/19 17:31 01/11/19 17:31 - General Appearance General appearance: well-developed, well-nourished, appears stated age EENT: ATNC, PERRL, mucous membranes moist Neck: Present: neck supple Respiratory: Clear to Ascultation Heart: regular, S1S2 Gastrointestinal: Present: normoactive bowel sounds Integumentary: no rash, other (2-3+ edema b/l LE ) Neurologic: no focal deficit, alert and oriented x3, strength 5/5, CN 3-12 intact Psychiatric: mood/affect appropriate, cooperative Results - Lab Results 01/12/19 04:00 01/12/19 04:00 Most recent lab results Calcium 7.1 mg/dL (8.4-10.2) L 01/12/19 04:00 Assessment and Plan - Patient Problems (1) ESRD (end stage renal disease) Current Visit: Yes Status: Acute Plan to address problem: pt with progressive CKD now approached ESRD with difficult to control volume o verload and uremic symptoms, discussed indication, risks and benefits of renal replacement therapy, pt understands and is agreeable to HD. Consulted IR for permcath placement, will initiate HD once access available. pt will need outpatient HD arrangement (2) Nephrotic syndrome Current Visit: Yes Status: Suspected Plan to address problem: secondary to biopsy proven diabetic nephropathy. volume control with HD (3) Type 2 diabetes mellitus with diabetic chronic kidney disease Current Visit: No Status: Acute Plan to address problem: DM management as per primary attending (4) Anemia in chronic illness Current Visit: Yes Status: Acute Plan to address problem: hb at target. will initiate ALBERTO/IV iron at outpatient HD clinic (5) Elevated troponin Current Visit: No Status: Acute Plan to address problem: likely secondary to ESRD. follow cardiology recommendations (6) Hyponatremia Current Visit: Yes Status: Acute Plan to address problem: most likely secondary to volume overload. volume control with HD
--- NOTE | 2019-01-12 13:06 | Consultation ---
History of Present Illness Consult date: 01/12/19 Requesting physician: DAPHNEY MALONE Consult reason: elevated troponin History of present illness: The pt is a 58 YO female with a past medical history of HTN, HLP, DM, CKD, suspected nephrotic syndrome. She is followed in our office by Dr. Shah. She presented with c/o progressively worsening BLE swelling, SOB and decreased UOP for the past several days. She was sent from her PCP's office to ED for evaluation and was subsequently admitted. On a recent admission, she was found to have NOLBERTO on CKD with suspected nephrotic syndrome and was advised to obtain biopsy and follow-up with renal as an outpatient but she never did. She denies any chest pain, palpitations, n/v, diaphoresis, dizziness or syncope. Labwork is significant for BUN/CR 69/4.8. Elel were noted to be elevated and thus cardiology has been consulted. Echo done 10/2018 showed EF 55-60%, mild MR, mild TR. Lexiscan MPI stress test done 10/2018 was negative. Past History Past Medical History: diabetes, hypertension, hyperlipidemia, renal failure Medications and Allergies Allergies Allergy/AdvReac Type Severity Reaction Status Date / Time Penicillins Allergy Unknown Verified 10/30/18 11:25 Sulfa (Sulfonamide Allergy Unknown Verified 10/30/18 11:25 Antibiotics) Home Medications Medication Instructions Recorded Confirmed Last Taken Type Furosemide [Lasix TAB] 40 mg PO DAILY@0600 #30 tablet 11/20/18 01/12/19 Unknown Rx Gabapentin [Neurontin] 400 mg PO TID capsule 11/20/18 01/12/19 01/11/19 Rx Lisinopril [Zestril TAB] 5 mg PO QDAY #30 tablet 11/20/18 01/12/19 01/11/19 Rx Metoprolol [Lopressor TAB] 100 mg PO QDAY #30 tablet 11/20/18 01/12/19 01/11/19 Rx Triamter/Hctz 37.5-25 mg 2 each PO QAM tablet 11/20/18 01/12/19 01/11/19 Rx [Maxzide-25] hydrALAZINE [Apresoline TAB] 100 mg PO BID #60 tab 11/20/18 01/12/19 Unknown Rx traMADol [Ultram 50 MG tab] 50 mg PO Q12HR PRN #10 tablet 11/20/18 01/12/19 Unknown Rx traZODone [Desyrel] 100 mg PO QHS #30 tablet 11/20/18 01/12/19 Unknown Rx AtorvaSTATin [Lipitor] 80 mg PO QHS #30 tablet 12/26/18 01/12/19 Unknown Rx Gabapentin [Neurontin] 400 mg PO Q8HR #20 cap 12/26/18 01/12/19 01/11/19 Rx Insulin Aspart Prot/Aspart(Nf) 10 units SQ QAM #300 units 12/26/18 01/12/19 01/11/19 Rx [NovoLOG Mix 70/30 VIAL] Triamterene/Hydrochlorothiazid 1 each PO QDAY #30 tablet 12/26/18 01/12/19 01/11/19 Rx [Triamterene-Hctz 75-50 mg Tab] amLODIPine [Norvasc] 10 mg PO DAILY #30 tablet 12/26/18 01/12/19 01/11/19 Rx Active Meds: Active Medications Acetaminophen (Tylenol) 650 mg PO Q4H PRN PRN Reason: Pain MILD(1-3)/Fever >100.5/[place] Atorvastatin Calcium (Lipitor) 80 mg PO QHS [facility] Dextrose (D50w (25gm) Syringe) 50 ml IV Q30MIN PRN PRN Reason: Hypoglycemia Enoxaparin Sodium (Lovenox) 30 mg SUB-Q QDAY [facility] Last Admin: 01/12/19 10:41 Dose: 30 mg Documented by: Furosemide (Lasix) 20 mg PO QDAY [facility] Last Admin: 01/12/19 10:41 Dose: 20 mg Documented by: Gabapentin (Neurontin) 400 mg PO Q8HR [facility] Levofloxacin/Dextrose (Levaquin 500mg/100ml) 500 mg in 100 mls @ 100 mls/hr IV Q48H [facility]; Protocol Last Admin: 01/12/19 00:52 Dose: 100 mls/hr Documented by: Insulin Human Regular (Humulin R) 0 units SUB-Q ACHS [facility]; Protocol Last Admin: 01/12/19 08:00 Dose: 4 units Documented by: Ondansetron HCl (Zofran) 4 mg IV Q8H PRN PRN Reason: Nausea And Vomiting Sodium Chloride (Sodium Chloride Flush Syringe 10 Ml) 10 ml IV BID [facility] Last Admin: 01/12/19 10:42 Dose: 10 ml Documented by: Sodium Chloride (Sodium Chloride Flush Syringe 10 Ml) 10 ml IV PRN PRN PRN Reason: LINE FLUSH Review of Systems Constitutional: no weight loss, no weight gain, no fever, no chills, no sweats Ears, nose, mouth and throat: no ear pain, no nose pain, no sinus pressure, no sinus pain Cardiovascular: edema, shortness of breath, dyspnea on exertion, leg edema, no chest pain, no orthopnea, no palpitations, no rapid/irregular heart beat, no syncope, no lightheadedness Respiratory: shortness of breath, dyspnea on exertion, no cough, no congestion, no wheezing, no pain on inspiration Gastrointestinal: no abdominal pain, no nausea, no vomiting, no diarrhea, no constipation, no change in bowel habits Genitourinary Female: no pelvic pain, no flank pain, no dysuria, no urinary frequency, no urgency Musculoskeletal: no neck stiffness, no neck pain, no shooting arm pain, no arm numbness/tingling, no low back pain, no shooting leg pain Integumentary: no rash, no pruritis, no redness, no sores, no wounds Neurological: no head injury, no paralysis, no weakness, no parathesias, no numbness, no tingling, no seizures, no syncope Psychiatric: no anxiety Endocrine: no cold intolerance, no heat intolerance Hematologic/Lymphatic: no easy bruising, no easy bleeding Allergic/Immunologic: no urticaria Physical Examination Vital Signs Pulse Resp BP Pulse Ox 51 L 20 93/44 100 01/11/19 17:31 01/11/19 17:31 01/11/19 17:31 01/11/19 17:31 General appearance: no acute distress HEENT: Positive: PERRL, Normocephaly, Mucus Membranes Moist Neck: Positive: neck supple, trachea midline Cardiac: Positive: Reg Rate and Rhythm, S1/S2 Lungs: Positive: Decreased Breath Sounds Neuro: Positive: Grossly Intact Abdomen: Negative: Tender Skin: Negative: Rash Extremities: Present: +2 Edema (BLE 2-3+) Results 01/12/19 04:00 01/12/19 04:00 CBC 01/11/19 01/12/19 Range/Units 17:42 04:00 WBC 8.0 7.3 (4.5-11.0) K/mm3 RBC 4.53 4.06 (3.65-5.03) M/mm3 Hgb 11.5 10.5 (10.1-14.3) gm/dl Hct 35.7 32.2 (30.3-42.9) % Plt Count 494 H 418 (140-440) K/mm3 Lymph # 1.8 1.6 (1.2-5.4) K/mm3 [place] # 0.4 0.2 (0.0-0.8) K/mm3 Eos # 0.1 0.0 (0.0-0.4) K/mm3 Baso # 0.0 0.0 (0.0-0.1) K/mm3 Comprehensive Metabolic Panel 01/11/19 01/12/19 Range/Units 17:42 04:00 Sodium 134 L 136 L (137-145) mmol/L Potassium 4.5 D 4.5 (3.6-5.0) mmol/L Chloride 101.4 104.5 (98-107) mmol/L Carbon Dioxide 17 L 16 L (22-30) mmol/L BUN 64 H 69 H (7-17) mg/dL Creatinine 4.6 H 4.8 H (0.7-1.2) mg/dL Glucose 284 H 348 H (65-100) mg/dL Calcium 7.5 L 7.1 L (8.4-10.2) mg/dL - Imaging and Cardiology Echo: report reviewed ( 10/2018 showed EF 55-60%, mild MR, mild TR. ) EKG: report reviewed, image reviewed EKG interpretations - Telemetry EKG Rhythm: Sinus Rhythm - EKG Sinus rhythms and dysrhythmias: sinus rhythm Assessment and Plan Pt presents with NOLBERTO on CKD and suspected nephrotic syndrome. She may require initiation of HD in the near future. Nephrology recs pending. Elle were noted to be elevated and thus cardiology has been consulted. Echo done 10/2018 showed EF 55-60%, mild MR, mild TR. Lexiscan MPI stress test done 10/2018 was negative. CE elevation appears c/w NSTEMI type II. No plans for any additional cardiac w/u at this time. Resume home cardiac regimen. Will follow on as needed basis. The patient has been seen in conjunction with Dr. LACHELLE Su who agrees with the assessment and plan of care. - Patient Problems (1) Acute kidney injury superimposed on chronic kidney disease Current Visit: Yes Status: Acute (2) Bilateral lower extremity edema Current Visit: Yes Status: Acute (3) Nephrotic syndrome Current Visit: Yes Status: Suspected (4) NSTEMI (non-ST elevated myocardial infarction) Current Visit: Yes Status: Acute Plan to address problem: type II (5) HTN (hypertension) Current Visit: Yes Status: Chronic (6) Diabetes mellitus Current Visit: Yes Status: Chronic Qualifiers: Diabetes mellitus type: type 2 (7) Hyperlipidemia Current Visit: Yes Status: Chronic
[2019-01-12] MEDS: GABAPENTIN 400 MG CAP PO SCH ×2 (14:07→21:56)
[2019-01-12] MEDS ORDERED: HEPARIN/NS 5000 UNIT/500ML 500 ML IR ONE (14:53)
[2019-01-12] MEDS ORDERED: SODIUM CHLORIDE 0.9% 250ML 250 ML ONE (14:54)
--- NOTE | 2019-01-12 15:05 | Consultation ---
History of Present Illness - Reason for Consult Consult date: 01/12/19 [facility] Requesting physician: ETHEL GRAY - History of Present Illness The patient is a 58-year-old female with a history of chronic renal sufficiency presented to the emergency department with complaints of progressively worsening shortness of breath and decreased urine output. Upon evaluation she was found to be in acute on chronic renal failure and in need of urgent dialysis access for hemodialysis. She complains of shortness of breath and has no additional complaints. Past History Past Medical History: diabetes, ESRD, hypertension, renal failure Past Surgical History: , hysterectomy, Other (renal biopsy ) Social history: denies: smoking, alcohol abuse, prescription drug abuse, IV drug use Family history: hypertension Medications and Allergies Allergies Allergy/AdvReac Type Severity Reaction Status Date / Time Penicillins Allergy Unknown Verified 10/30/18 11:25 Sulfa (Sulfonamide Allergy Unknown Verified 10/30/18 11:25 Antibiotics) Home Medications Medication Instructions Recorded Confirmed Last Taken Type Furosemide [Lasix TAB] 40 mg PO DAILY@0600 #30 tablet 11/20/18 01/12/19 Unknown Rx Gabapentin 400 mg PO TID capsule 11/20/18 01/12/19 01/11/19 Rx Lisinopril [Zestril TAB] 5 mg PO QDAY #30 tablet 11/20/18 01/12/19 01/11/19 Rx Metoprolol [Lopressor TAB] 100 mg PO QDAY #30 tablet 11/20/18 01/12/19 01/11/19 Rx Triamter/Hctz 37.5-25 mg 2 each PO QAM tablet 11/20/18 01/12/19 01/11/19 Rx [Maxzide-25] hydrALAZINE [Apresoline TAB] 100 mg PO BID #60 tab 11/20/18 01/12/19 Unknown Rx traMADol [Ultram 50 MG tab] 50 mg PO Q12HR PRN #10 tablet 11/20/18 01/12/19 Unknown Rx traZODone [Desyrel] 100 mg PO QHS #30 tablet 11/20/18 01/12/19 Unknown Rx AtorvaSTATin [Lipitor] 80 mg PO QHS #30 tablet 12/26/18 01/12/19 Unknown Rx Gabapentin 400 mg PO Q8HR #20 cap 12/26/18 01/12/1901/11/19 Rx Insulin Aspart Prot/Aspart(Nf) 10 units SQ QAM #300 units 12/26/18 01/12/19 01/11/19 Rx [NovoLOG Mix 70/30 VIAL] Triamterene/Hydrochlorothiazid 1 each PO QDAY #30 tablet 12/26/18 01/12/19 01/11/19 Rx [Triamterene-Hctz 75-50 mg Tab] amLODIPine 10 mg PO DAILY #30 tablet 12/26/18 01/12/19 01/11/19 Rx Active Meds: Active Medications Acetaminophen (Tylenol) 650 mg PO Q4H PRN PRN Reason: Pain MILD(1-3)/Fever >100.5/[place] Atorvastatin Calcium (Lipitor) 80 mg PO QHS [facility] Dextrose (D50w (25gm) Syringe) 50 ml IV Q30MIN PRN PRN Reason: Hypoglycemia Enoxaparin Sodium (Lovenox) 30 mg SUB-Q QDAY [facility] Last Admin: 01/12/19 10:41 Dose: 30 mg Documented by: Furosemide (Lasix) 20 mg PO QDAY [facility] Last Admin: 01/12/19 10:41 Dose: 20 mg Documented by: Gabapentin (Neurontin) 400 mg PO Q8HR [facility] Last Admin: 01/12/19 14:07 Dose: 400 mg Documented by: Levofloxacin/Dextrose (Levaquin 500mg/100ml) 500 mg in 100 mls @ 100 mls/hr IV Q48H [facility]; Protocol Last Admin: 01/12/19 00:52 Dose: 100 mls/hr Documented by: Insulin Human Regular (Humulin R) 0 units SUB-Q ACHS [facility]; Protocol Last Admin: 01/12/19 12:00 Dose: 6 units Documented by: Ondansetron HCl (Zofran) 4 mg IV Q8H PRN PRN Reason: Nausea And Vomiting Sodium Chloride (Sodium Chloride Flush Syringe 10 Ml) 10 ml IV BID [facility] Last Admin: 01/12/19 10:42 Dose: 10 ml Documented by: Sodium Chloride (Sodium Chloride Flush Syringe 10 Ml) 10 ml IV PRN PRN PRN Reason: LINE FLUSH Review of Systems All systems: negative Exam - Constitutional Vitals: Temp Pulse Resp BP Pulse Ox 98.0 F 51 L 18 105/54 100 01/12/19 08:12 01/12/19 10:44 01/12/19 08:12 01/12/19 10:44 01/12/19 10:55 General appearance: Present: no acute distress - Neck Neck: Present: supple - Respiratory Respiratory effort: normal - Cardiovascular Rhythm: regular - Extremities Extremities: no ischemia Extremity abnormal: edema - Abdominal General gastrointestinal: Present: soft, non-tender Female genitourinary: Present: deferred - Rectal Rectal Exam: normal exam-external/orifice - Integumentary Integumentary: Present: clear - Musculoskeletal Musculoskeletal: strength equal bilaterally Results - Labs CBC & Chem 7: 01/12/19 04:00 01/12/19 04:00 Labs: Abnormal lab results 01/11/19 01/11/19 01/11/19 Range/Units 17:42 17:42 23:32 MCH 25 L (28-32) pg Plt Count 494 H (140-440) K/mm3 Seg Neutrophils % 71.8 H (40.0-70.0) % Sodium 134 L (137-145) mmol/L Carbon Dioxide 17 L (22-30) mmol/L BUN 64 H (7-17) mg/dL Creatinine 4.6 H (0.7-1.2) mg/dL Glucose 284 H (65-100) mg/dL POC Glucose (70-105) Calcium 7.5 L (8.4-10.2) mg/dL Total Creatine Kinase (30-135) units/L Troponin T 0.148 H* (0.00-0.029) ng/mL NT-Pro-B Natriuret Pep 5277 H (0-900) pg/mL TSH 4.780 H (0.270-4.200) mlU/mL 01/11/19 01/11/19 01/12/19 Range/Units 23:32 23:38 01:48 MCH (28-32) pg Plt Count (140-440) K/mm3 Seg Neutrophils % (40.0-70.0) % Sodium (137-145) mmol/L Carbon Dioxide (22-30) mmol/L BUN (7-17) mg/dL Creatinine (0.7-1.2) mg/dL Glucose (65-100) mg/dL POC Glucose 313 H 315 H (70-105) Calcium (8.4-10.2) mg/dL Total Creatine Kinase 1258 H (30-135) units/L Troponin T 0.136 H* (0.00-0.029) ng/mL NT-Pro-B Natriuret Pep (0-900) pg/mL TSH (0.270-4.200) mlU/mL 01/12/19 01/12/19 01/12/19 Range/Units 04:00 04:00 08:18 MCH 26 L (28-32) pg Plt Count (140-440) K/mm3 Seg Neutrophils % 75.5 H (40.0-70.0) % Sodium 136 L (137-145) mmol/L Carbon Dioxide 16 L (22-30) mmol/L BUN 69 H (7-17) mg/dL Creatinine 4.8 H (0.7-1.2) mg/dL Glucose 348 H (65-100) mg/dL POC Glucose 298 H (70-105) Calcium 7.1 L (8.4-10.2) mg/dL Total Creatine Kinase (30-135) units/L Troponin T (0.00-0.029) ng/mL NT-Pro-B Natriuret Pep (0-900) pg/mL TSH (0.270-4.200) mlU/mL 01/12/19 Range/Units 12:16 MCH (28-32) pg Plt Count (140-440) K/mm3 Seg Neutrophils % (40.0-70.0) % Sodium (137-145) mmol/L Carbon Dioxide (22-30) mmol/L BUN (7-17) mg/dL Creatinine (0.7-1.2) mg/dL Glucose (65-100) mg/dL POC Glucose 333 H (70-105) Calcium (8.4-10.2) mg/dL Total Creatine Kinase (30-135) units/L Troponin T (0.00-0.029) ng/mL NT-Pro-B Natriuret Pep (0-900) pg/mL TSH (0.270-4.200) mlU/mL Assessment and Plan The patient is a 58-year-old female with history of acute on chronic renal failure in need of urgent dialysis access. I have been consulted for placement of a permacath. Given the patient the risks, benefits, and alternative procedures she has consented to the procedure.
--- NOTE | 2019-01-12 15:10 | Operative Report ---
Operative Report Operative Report: Date of procedure: 01/12/2019 Pre-operative diagnosis: Acute on Chronic Renal Failure Post-operative diagnosis: Same Procedure(s): 1. Ultrasound-Guided Access Right Internal Vein 2. Placement of 23 cm GlidePath Permacath 3. Radiologic Supervision with Interpretation Surgeon: Myke Marroquin MD [employer] Coordinator: None Anesthesia: Local EBL: Minimal Counts: Correct Complications: None Condition: Stable Findings: Successful placement of right IJ permacath. Specimen: None Indication: The patient is a 58-year-old female with a history of chronic renal insufficiency who presented to the emergency department with complaints of worsening shortness of breath and decreased urine output and was found to be in acute on chronic renal failure. She is in need of urgent dialysis access for hemodialysis. She was given the risks, benefits, and alternative procedures and consented to procedure. Description of Procedure: The patient was brought to the mechanical shop laborer and laid in supine position and his right neck and chest were prepped and draped in normal sterile fashion. Ultrasound was used to identify the right internal jugular vein and the overlying skin and soft tissue was anesthetized with lidocaine. A small stab incision was made and then the access needle was used ultrasound guidance in the right internal jugular vein. An 035 J-wire was advanced to the central venous system under fluoroscopic guidance. The tract was serially dilated up to a 16 [place] peel-away safety sheath and the inner cannula and wire removed. An exit site on the chest was then chosen and the presumed tunnel was anesthetized with lidocaine. A small stab incision was made on the chest and then the permacath was connected to the tunneler and pulled antegrade through the tunnel. The catheter was inserted into the safe sheath and safety sheath was pulled away. The catheter was positioned under fluoroscopy. Once in adequate position both ports were aspirated and flushed and then primed with the appropriate amount heparin. The neck incision was then closed with 4-0 Monocryl in interrupted subcuticular fashion and dressed with Dermabond. The catheters was dressed sterilely. Final fluoroscopy demonstrated the catheter was in excellent position without any evidence of pneumothorax. The patient tolerated the procedure well, all sponge needle and instrument counts were correct, the patient was taken to recovery in stable condition.
[2019-01-12] MEDS: LIDOCAINE 1%/EPINEPHRINE 1:100,000 VIAL (20 ML) INFILTRATI ONE ×2 (15:23→15:31)
--- NOTE | 2019-01-12 15:29 | Progress Note ---
Assessment and Plan Assessment and plan: Patient is a 58-year-old history of CHF, hypertension, diabetes, GERD, depression, hyperlipidemia comes emergency room with complaints of worsening swelling of leg is now unable to walk and also complain of decreased urine output. She has urinated once a day. She was seen here in the emergency room on 2 previous occasions and was discharged home. Primary care physician who sent her here to the emergency room for admission and complaining of mild shortness of breath. On last admission she had nephrotic range proteinuria, and was advised to obtain biopsy and follow-up with renal as an outpatient but she never did. She found to be hypothermic in the emergency room pCXR Impression: Minimal right pleural effusion Assessment Acute on chronic kidney disease, suspect nephrotic syndrome Abnormal cardiac enzyme, chronically elevated Hypothermia CHF, stable Hypotension, relative Diabetes GERD Depression Hyperlipidemia Plan Admit to medicine Continue beta lottie, renal was consulted to see the patient Cardiac enzymes, consult cardiology Start empiric Antibiotic, follow cultures Check fingersticks initiate insulin sliding-scale Continue appropriate outpatient medications DVT prophylaxis Hemodialysis pending d/w Nephrology History Interval history: Patient was seen and examined. Follow-up on current diagnosis. No overnight events reported to me. Patient denies any chest pain, shortness breath, nausea/vomiting or severe headaches. Imaging, nursing note, chart, labs and old chart reviewed. Discussed with patient. Hospitalist Physical - Physical exam Narrative exam: Gen: WDWN, NAD, Awake, Alert, Orientated HEENT: NCAT, EOMI, PERRL, OP Clear Neck: supple, no adenopathy, no thyromegaly, no JVD CVS/Heart: RRR, normal S1S2, pulses present bilaterally Chest/Lungs: CTA B, Symmetrical chest expansion, good air entry bilaterally GI/Abdomen: soft, NTND, good bowel sounds, no guarding or rebound /Bladder: no suprapubic tenderness, no CVA or paraspinal tenderness Extermity/Skin: +ble edema, no obvious rash MSK: FROM x 4 Neuro: CN 2-12 grossly intact, no new focal deficits Psych: calm - Constitutional Vitals: Temp Pulse Resp BP Pulse Ox 98.0 F 51 L 18 105/54 100 01/12/19 08:12 01/12/19 10:44 01/12/19 08:12 01/12/19 10:44 01/12/19 10:55 General appearance: Present: no acute distress Results - Labs CBC & Chem 7: 01/12/19 04:00 01/12/19 04:00 Labs: Laboratory Last Values WBC 7.3 K/mm3 (4.5-11.0) 01/12/19 04:00 RBC 4.06 M/mm3 (3.65-5.03) 01/12/19 04:00 Hgb 10.5 gm/dl (10.1-14.3) 01/12/19 04:00 Hct 32.2 % (30.3-42.9) 01/12/19 04:00 MCV 79 fl (79-97) 01/12/19 04:00 MCH 26 pg (28-32) L 01/12/19 04:00 MCHC 33 % (30-34) 01/12/19 04:00 RDW 14.7 % (13.2-15.2) 01/12/19 04:00 Plt Count 418 K/mm3 (140-440) 01/12/19 04:00 Lymph % (Auto) 21.4 % (13.4-35.0) 01/12/19 04:00 [place] % (Auto) 2.7 % (0.0-7.3) 01/12/19 04:00 Eos % (Auto) 0.2 % (0.0-4.3) 01/12/19 04:00 Baso % (Auto) 0.2 % (0.0-1.8) 01/12/19 04:00 Lymph # 1.6 K/mm3 (1.2-5.4) 01/12/19 04:00 [place] # 0.2 K/mm3 (0.0-0.8) 01/12/19 04:00 Eos # 0.0 K/mm3 (0.0-0.4) 01/12/19 04:00 Baso # 0.0 K/mm3 (0.0-0.1) 01/12/19 04:00 Seg Neutrophils % 75.5 % (40.0-70.0) H 01/12/19 04:00 Seg Neutrophils # 5.5 K/mm3 (1.8-7.7) 01/12/19 04:00 Sodium 136 mmol/L (137-145) L 01/12/19 04:00 Potassium 4.5 mmol/L (3.6-5.0) 01/12/19 04:00 Chloride 104.5 mmol/L (98-107) 01/12/19 04:00 Carbon Dioxide 16 mmol/L (22-30) L 01/12/19 04:00 Anion Gap 20 mmol/L 01/12/19 04:00 BUN 69 mg/dL (7-17) H 01/12/19 04:00 Creatinine 4.8 mg/dL (0.7-1.2) H 01/12/19 04:00 Estimated GFR 11 ml/min 01/12/19 04:00 BUN/Creatinine Ratio 14 % 01/12/19 04:00 Glucose 348 mg/dL (65-100) H 01/12/19 04:00 POC Glucose 333 (70-105) H 01/12/19 12:16 Calcium 7.1 mg/dL (8.4-10.2) L 01/12/19 04:00 Total Creatine Kinase 1258 units/L (30-135) H 01/11/19 23:32 Troponin T 0.136 ng/mL (0.00-0.029) H* 01/11/19 23:32 NT-Pro-B Natriuret Pep 5277 pg/mL (0-900) H 01/11/19 17:42 TSH 4.780 mlU/mL (0.270-4.200) H 01/11/19 23:32 Free T4 0.99 ng/dL (0.76-1.46) 01/11/19 23:32 Active Medications - Current Medications Current Medications: Generic Name Dose Route Start Last Admin Trade Name Freq PRN Reason Stop Dose Admin Acetaminophen 650 mg 01/12/19 00:49 Tylenol PO Q4H PRN Pain MILD(1-3)/Fever >100.5/[place] Atorvastatin Calcium 80 mg 01/12/19 22:00 Lipitor PO QHS LUCA Dextrose 50 ml 01/12/19 01:54 D50w (25gm) Syringe IV Q30MIN PRN Hypoglycemia Enoxaparin Sodium 30 mg 01/12/19 10:00 01/12/19 10:41 Lovenox SUB-Q 30 mg QDAY LUCA Administration Furosemide 20 mg 01/12/19 10:00 01/12/19 10:41 Lasix PO 20 mg QDAY LUCA Administration Gabapentin 400 mg 01/12/19 14:00 01/12/19 14:07 Neurontin PO 400 mg Q8HR LUCA Administration Levofloxacin/Dextrose 500 mg in 100 mls @ 100 mls/hr 01/12/19 00:00 01/12/19 00:52 Levaquin 500mg/100ml IV 100 mls/hr Q48H LUCA Administration Protocol Insulin Human Regular 0 units 01/12/19 03:00 01/12/19 12:00 Humulin R SUB-Q 6 units ACHS LUCA Administration Protocol Ondansetron HCl 4 mg 01/12/19 00:49 Zofran IV Q8H PRN Nausea And Vomiting Sodium Chloride 10 ml 01/12/19 10:00 01/12/19 10:42 Sodium Chloride Flush Syringe 10 Ml IV 10 ml BID LUCA Administration Sodium Chloride 10 ml 01/12/19 00:49 Sodium Chloride Flush Syringe 10 Ml IV PRN PRN LINE FLUSH Nutrition/Malnutrition Assess - Dietary Evaluation Nutrition/Malnutrition Findings: Nutrition Notes Start: 01/12/19 10:30 Freq: Status: Active Protocol: Document 01/12/19 10:30 CC (Rec: 01/12/19 11:02 CC [id number]) Co-Sign 01/12/19 10:30 LP Nutrition Notes Need for Assessment generated from: floor representative Initial or Follow up Assessment Current Diagnosis Acute Kidney Injury,Diabetes, Hypertension,Heart Failure, Hyperlipidemia Other Pertinent Diagnosis GERD, LE edema over past month Labs/Tests BUN 69, Creat 4.8, Gluc 348 Pertinent Medications Reviewed Height 5 ft Weight 71.2 kg [place] Body Weight (kg) 45.45 BMI 30.7 Intake Prior to Admission Poor Weight change and time frame Unknown Weight Status Obese Subjective/Other Information Skin risk assesment score of 16. 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 Pt reported she has had unintentional wt loss but did not know how much wt she has lost or what her UBW is. Pt reported N/V for a week. Percent of energy/protein needs met: 99% energy/ 100% protein Burn Absent Trauma Absent GI Symptoms Nausea,Vomiting Current % PO Good (75-100%) Minimum of two criteria Yes Energy Intake (non-severe) <75% Estimated Energy Requirement >7 days Fluid Accumulation Mild (non-severe) #1 Nutrition Diagnosis Malnutrition Etiology poor appetite As Evidenced by Signs and Symptoms Pt report of N/V >1 week, mild fluid accumulation, intake < 75% energy needs >7days Is patient on ventilator? No Is Patient Ambulatory and/or Out of Bed No REE-([facility]-confined to bed) [phone] Calculation Used for Recommendations [facility] Additional Notes PRO: 71-85g/day (1.0-1.2g/kg) for NOLBERTO and malnutrition Fluid: per MD Nutrition Intervention Change Diet Order: continue cardiac/consistent CHO, renal diet Goal #1 Meet at least 80% energy and protein needs po Anticipated Discharge Needs: cardiac/consistent CHO, renal diet Follow-Up By: 01/14/19 Additional Comments F/U po intakes, appetite
[2019-01-12] MEDS: HEPARIN 10,000 UNITS/10 ML VIAL ONE ×3 (15:30→15:36)
[2019-01-12] MEDS: ACETAMINOPHEN 325 MG TAB PO PRN (22:04)
[2019-01-13] MEDS: GABAPENTIN 400 MG CAP PO SCH ×3 (05:54→22:19)
[2019-01-13] MEDS: INSULIN REGULAR, HUMAN 100 UNITS/1 ML SUB-Q SCH ×5 (07:30→22:19)
[2019-01-13] MEDS: ACETAMINOPHEN 325 MG TAB PO PRN (09:47)
[2019-01-13] MEDS: ENOXAPARIN 30 MG/0.3 ML INJ SUB-Q SCH (09:48)
[2019-01-13] MEDS: FUROSEMIDE 20 MG TAB PO SCH (09:48)
--- NOTE | 2019-01-13 10:21 | Progress Note ---
Assessment and Plan Pt s/p HD catheter placement and is to be initiated on HD. Elle were noted to be elevated and thus cardiology has been consulted. Echo done 10/2018 showed EF 55- 60%, mild MR, mild TR. Lexiscan MPI stress test done 10/2018 was negative. CE elevation appears c/w NSTEMI type II. No plans for any additional cardiac w/u at this time. Cont home cardiac regimen. Will follow on as needed basis. The patient has been seen in conjunction with Dr. Doron Su who agrees with the assessment and plan of care. - Patient Problems (1) Acute kidney injury superimposed on chronic kidney disease Current Visit: Yes Status: Acute (2) Bilateral lower extremity edema Current Visit: Yes Status: Acute (3) Nephrotic syndrome Current Visit: Yes Status: Suspected (4) NSTEMI (non-ST elevated myocardial infarction) Current Visit: Yes Status: Acute Plan to address problem: type II (5) HTN (hypertension) Current Visit: Yes Status: Chronic (6) Diabetes mellitus Current Visit: Yes Status: Chronic Qualifiers: Diabetes mellitus type: type 2 (7) Hyperlipidemia Current Visit: Yes Status: Chronic Subjective Date of service: 01/13/19 Principal diagnosis: CKD Interval history: pt resting in bed, BLE persists, s/p HD catheter placement yesterday and she is to be initiated on HD. in SR on tele. Objective Last Vital Signs Temp 79.5 F L 01/13/19 07:43 Pulse 62 01/13/19 07:43 Resp 18 01/13/19 07:43 BP 115/55 01/13/19 07:43 Pulse Ox 100 01/13/19 07:43 - Physical Examination General: No Apparent Distress HEENT: Positive: PERRL, Normocephaly, Mucus Membranes Moist Neck: Positive: neck supple Cardiac: Positive: Reg Rate and Rhythm, S1/S2 Lungs: Positive: Decreased Breath Sounds Neuro: Positive: Grossly Intact Abdomen: Negative: Tender Skin: Negative: Rash Extremities: Present: +2 Edema (BLE 2-3+) - Imaging and Cardiology EKG: report reviewed, image reviewed Echo: report reviewed ( 10/2018 showed EF 55-60%, mild MR, mild TR. ) - EKG Sinus rhythms and dysrhythmias: sinus rhythm
--- NOTE | 2019-01-13 11:37 | Progress Note ---
Assessment and Plan Assessment and plan: Patient is a 58-year-old history of CHF, hypertension, diabetes, GERD, depression, hyperlipidemia comes emergency room with complaints of worsening swelling of leg is now unable to walk and also complain of decreased urine output. She has urinated once a day. She was seen here in the emergency room on 2 previous occasions and was discharged home. Primary care physician who sent her here to the emergency room for admission and complaining of mild shortness of breath. On last admission she had nephrotic range proteinuria, and was advised to obtain biopsy and follow-up with renal as an outpatient but she never did. She found to be hypothermic in the emergency room pCXR Impression: Minimal right pleural effusion Assessment Acute on chronic kidney disease, suspect nephrotic syndrome Abnormal cardiac enzyme, chronically elevated Hypothermia CHF, stable Hypotension, relative Diabetes GERD Depression Hyperlipidemia Plan Admit to medicine Continue beta lottie, renal was consulted to see the patient Cardiac enzymes, consult cardiology Start empiric Antibiotic, follow cultures Check fingersticks initiate insulin sliding-scale Continue appropriate outpatient medications DVT prophylaxis Hemodialysis to start today, Vas cath placed on 01/12/19 d/w Nephrology History Interval history: Patient was seen and examined. Follow-up on current diagnosis. No overnight events reported to me. Patient denies any chest pain, shortness breath, nausea/vomiting or severe headaches. Imaging, nursing note, chart, labs and old chart reviewed. Discussed with patient. Hospitalist Physical - Physical exam Narrative exam: Gen: WDWN, NAD, Awake, Alert, Orientated HEENT: NCAT, EOMI, PERRL, OP Clear Neck: supple, no adenopathy, no thyromegaly, no JVD CVS/Heart: RRR, normal S1S2, pulses present bilaterally Chest/Lungs: CTA B, Symmetrical chest expansion, good air entry bilaterally GI/Abdomen: soft, NTND, good bowel sounds, no guarding or rebound /Bladder: no suprapubic tenderness, no CVA or paraspinal tenderness Extermity/Skin: +ble edema, no obvious rash MSK: FROM x 4 Neuro: CN 2-12 grossly intact, no new focal deficits Psych: calm - Constitutional Vitals: Temp Pulse Resp BP Pulse Ox 97.5 F L 67 18 108/58 95 01/13/19 11:26 01/13/19 11:26 01/13/19 11:26 01/13/19 11:26 01/13/19 11:26 General appearance: Present: no acute distress Results - Labs CBC & Chem 7: 01/12/19 04:00 01/12/19 04:00 Labs: Laboratory Last Values WBC 7.3 K/mm3 (4.5-11.0) 01/12/19 04:00 RBC 4.06 M/mm3 (3.65-5.03) 01/12/19 04:00 Hgb 10.5 gm/dl (10.1-14.3) 01/12/19 04:00 Hct 32.2 % (30.3-42.9) 01/12/19 04:00 MCV 79 fl (79-97) 01/12/19 04:00 MCH 26 pg (28-32) L 01/12/19 04:00 MCHC 33 % (30-34) 01/12/19 04:00 RDW 14.7 % (13.2-15.2) 01/12/19 04:00 Plt Count 418 K/mm3 (140-440) 01/12/19 04:00 Lymph % (Auto) 21.4 % (13.4-35.0) 01/12/19 04:00 [place] % (Auto) 2.7 % (0.0-7.3) 01/12/19 04:00 Eos % (Auto) 0.2 % (0.0-4.3) 01/12/19 04:00 Baso % (Auto) 0.2 % (0.0-1.8) 01/12/19 04:00 Lymph # 1.6 K/mm3 (1.2-5.4) 01/12/19 04:00 [place] # 0.2 K/mm3 (0.0-0.8) 01/12/19 04:00 Eos # 0.0 K/mm3 (0.0-0.4) 01/12/19 04:00 Baso # 0.0 K/mm3 (0.0-0.1) 01/12/19 04:00 Seg Neutrophils % 75.5 % (40.0-70.0) H 01/12/19 04:00 Seg Neutrophils # 5.5 K/mm3 (1.8-7.7) 01/12/19 04:00 Sodium 136 mmol/L (137-145) L 01/12/19 04:00 Potassium 4.5 mmol/L (3.6-5.0) 01/12/19 04:00 Chloride 104.5 mmol/L (98-107) 01/12/19 04:00 Carbon Dioxide 16 mmol/L (22-30) L 01/12/19 04:00 Anion Gap 20 mmol/L 01/12/19 04:00 BUN 69 mg/dL (7-17) H 01/12/19 04:00 Creatinine 4.8 mg/dL (0.7-1.2) H 01/12/19 04:00 Estimated GFR 11 ml/min 01/12/19 04:00 BUN/Creatinine Ratio 14 % 01/12/19 04:00 Glucose 348 mg/dL (65-100) H 01/12/19 04:00 POC Glucose 127 (70-105) H 01/13/19 07:55 Calcium 7.1 mg/dL (8.4-10.2) L 01/12/19 04:00 Total Creatine Kinase 1258 units/L (30-135) H 01/11/19 23:32 Troponin T 0.136 ng/mL (0.00-0.029) H* 01/11/19 23:32 NT-Pro-B Natriuret Pep 5277 pg/mL (0-900) H 01/11/19 17:42 TSH 4.780 mlU/mL (0.270-4.200) H 01/11/19 23:32 Free T4 0.99 ng/dL (0.76-1.46) 01/11/19 23:32 Active Medications - Current Medications Current Medications: Generic Name Dose Route Start Last Admin Trade Name Freq PRN Reason Stop Dose Admin Acetaminophen 650 mg 01/12/19 00:49 01/13/19 09:47 Tylenol PO 650 mg Q4H PRN Administration Pain MILD(1-3)/Fever >100.5/[place] Atorvastatin Calcium 80 mg 01/12/19 22:00 01/12/19 21:56 Lipitor PO 80 mg QHS LUCA Administration Dextrose 50 ml 01/12/19 01:54 D50w (25gm) Syringe IV Q30MIN PRN Hypoglycemia Enoxaparin Sodium 30 mg 01/12/19 10:00 01/13/19 09:48 Lovenox SUB-Q 30 mg QDAY LUCA Administration Furosemide 20 mg 01/12/19 10:00 01/13/19 09:48 Lasix PO 20 mg QDAY LUCA Administration Gabapentin 400 mg 01/12/19 14:00 01/13/19 05:54 Neurontin PO 400 mg Q8HR LUCA Administration Levofloxacin/Dextrose 500 mg in 100 mls @ 100 mls/hr 01/12/19 00:00 01/12/19 00:52 Levaquin 500mg/100ml IV 01/20/19 00:59 100 mls/hr Q48H LUCA Administration Protocol Insulin Human Regular 0 units 01/12/19 03:00 01/13/19 07:30 Humulin R SUB-Q Not Given ACHS LUCA Protocol Ondansetron HCl 4 mg 01/12/19 00:49 Zofran IV Q8H PRN Nausea And Vomiting Sodium Chloride 10 ml 01/12/19 10:00 01/13/19 10:46 Sodium Chloride Flush Syringe 10 Ml IV 10 ml BID LUCA Administration Sodium Chloride 10 ml 01/12/19 00:49 Sodium Chloride Flush Syringe 10 Ml IV PRN PRN LINE FLUSH Nutrition/Malnutrition Assess - Dietary Evaluation Nutrition/Malnutrition Findings: Nutrition Notes Start: 01/12/19 10:30 Freq: Status: Active Protocol: Document 01/12/19 10:30 CC (Rec: 01/12/19 11:02 CC [id number]) Co-Sign 01/12/19 10:30 LP Nutrition Notes Need for Assessment generated from: relationship specialist Initial or Follow up Assessment Current Diagnosis Acute Kidney Injury,Diabetes, Hypertension,Heart Failure, Hyperlipidemia Other Pertinent Diagnosis GERD, LE edema over past month Labs/Tests BUN 69, Creat 4.8, Gluc 348 Pertinent Medications Reviewed Height 5 ft Weight 71.2 kg [place] Body Weight (kg) 45.45 BMI 30.7 Intake Prior to Admission Poor Weight change and time frame Unknown Weight Status Obese Subjective/Other Information Skin risk assesment score of 16. 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 Pt reported she has had unintentional wt loss but did not know how much wt she has lost or what her UBW is. Pt reported N/V for a week. Percent of energy/protein needs met: 99% energy/ 100% protein Burn Absent Trauma Absent GI Symptoms Nausea,Vomiting Current % PO Good (75-100%) Minimum of two criteria Yes Energy Intake (non-severe) <75% Estimated Energy Requirement >7 days Fluid Accumulation Mild (non-severe) #1 Nutrition Diagnosis Malnutrition Etiology poor appetite As Evidenced by Signs and Symptoms Pt report of N/V >1 week, mild fluid accumulation, intake < 75% energy needs >7days Is patient on ventilator? No Is Patient Ambulatory and/or Out of Bed No REE-([facility]-confined to bed) [phone] Calculation Used for Recommendations [facility] Additional Notes PRO: 71-85g/day (1.0-1.2g/kg) for NOLBERTO and malnutrition Fluid: per MD Nutrition Intervention Change Diet Order: continue cardiac/consistent CHO, renal diet Goal #1 Meet at least 80% energy and protein needs po Anticipated Discharge Needs: cardiac/consistent CHO, renal diet Follow-Up By: 01/14/19 Additional Comments F/U po intakes, appetite
[2019-01-13] MEDS ORDERED: SODIUM CHLORIDE 0.9% 100 ML IV PRN ×2 (11:51→13:19)
[2019-01-13 13:28] LABS: Hepatitis B Surface Antigen Non-Reactive (Negative); Hepatitis C Virus Antibody Non-Reactive (NonReactive)
--- NOTE | 2019-01-13 15:21 | Progress Note ---
Assessment and Plan - Patient Problems (1) ESRD (end stage renal disease) Current Visit: Yes Status: Acute Plan to address problem: pt with progressive CKD now approached ESRD with difficult to control volume overload and uremic symptoms, discussed indication, risks and benefits of renal replacement therapy, pt understands and is agreeable to HD. s/p permcath placement, will initiate daily HD starting today for 2 days, then 3 x weekly schedule. pt will need outpatient HD arrangement (2) Nephrotic syndrome Current Visit: Yes Status: Suspected Plan to address problem: secondary to biopsy proven diabetic nephropathy. volume control with HD (3) Type 2 diabetes mellitus with diabetic chronic kidney disease Current Visit: No Status: Acute Plan to address problem: DM management as per primary attending (4) Anemia in chronic illness Current Visit: Yes Status: Acute Plan to address problem: hb at target. will initiate ALBERTO/IV iron at outpatient HD clinic (5) Elevated troponin Current Visit: No Status: Acute Plan to address problem: likely secondary to ESRD. follow cardiology recommendations (6) Hyponatremia Current Visit: Yes Status: Acute Plan to address problem: most likely secondary to volume overload. volume control with HD Subjective Date of service: 01/13/19 Principal diagnosis: CKD Interval history: PT awake, alert, denies CP, SOB, fever, chills, reports persistent b/l LE edema. S/p permcath last night. Objective - Vital Signs Vital signs: Vital Signs - 12hr 01/13/19 01/13/19 01/13/19 03:59 07:43 10:00 Temperature 98.5 F 79.5 F L Pulse Rate 60 62 58 L Pulse Rate [ 67 Apical] Pulse Rate [ 67 From Monitor] Pulse Rate [ 67 Left Radial] Pulse Rate [ 67 Right Radial] Respiratory 18 18 21 Rate Blood Pressure 116/72 115/55 O2 Sat by Pulse 100 100 98 Oximetry 01/13/19 01/13/19 11:26 14:28 Temperature 97.5 F L 97.7 F Pulse Rate 67 69 Pulse Rate [ Apical] Pulse Rate [ From Monitor] Pulse Rate [ Left Radial] Pulse Rate [ Right Radial] Respiratory 18 18 Rate Blood Pressure 108/58 122/65 O2 Sat by Pulse 95 Oximetry - General Appearance General appearance: well-developed, well-nourished, appears stated age EENT: ATNC, PERRL, mucous membranes moist Neck: no JVD, other (Rt IJ permcath in place ) Respiratory: Present: Clear to Ascultation Cardiology: regular, S1S2 Gastrointestinal: normoactive bowel sounds Integumentary: no rash, other (2+ edema b/l LE ) Neurologic: no focal deficit, alert and oriented x3, strength 5/5, CN 3-12 intact Psychiatric: mood/affect appropriate, cooperative - Lab 01/12/19 04:00 01/12/19 04:00 Most recent lab results Calcium 7.1 mg/dL (8.4-10.2) L 01/12/19 04:00 Medications & Allergies - Medications Allergies/Adverse Reactions: Allergies Penicillins Allergy (Verified 10/30/18 11:25) Unknown Sulfa (Sulfonamide Antibiotics) Allergy (Verified 10/30/18 11:25) Unknown Home Medications: Home Medications Medication Instructions Recorded Confirmed Last Taken Type Furosemide [Lasix TAB] 40 mg PO DAILY@0600 #30 tablet 11/20/18 01/12/19 Unknown Rx Gabapentin 400 mg PO TID capsule 11/20/18 01/12/19 01/11/19 Rx Lisinopril [Zestril TAB] 5 mg PO QDAY #30 tablet 11/20/18 01/12/19 01/11/19 Rx Metoprolol [Lopressor TAB] 100 mg PO QDAY #30 tablet 11/20/18 01/12/19 01/11/19 Rx Triamter/Hctz 37.5-25 mg 2 each PO QAM tablet 11/20/18 01/12/19 01/11/19 Rx [Maxzide-25] hydrALAZINE [Apresoline TAB] 100 mg PO BID #60 tab 11/20/18 01/12/19 Unknown Rx traMADol [Ultram 50 MG tab] 50 mg PO Q12HR PRN #10 tablet 11/20/18 01/12/19 Unk nown Rx traZODone [Desyrel] 100 mg PO QHS #30 tablet 11/20/18 01/12/19 Unknown Rx AtorvaSTATin [Lipitor] 80 mg PO QHS #30 tablet 12/26/18 01/12/19 Unknown Rx Gabapentin 400 mg PO Q8HR #20 cap 12/26/18 01/12/19 01/11/19 Rx Insulin Aspart Prot/Aspart(Nf) 10 units SQ QAM #300 units 12/26/18 01/12/19 01/11/19 Rx [NovoLOG Mix 70/30 VIAL] Triamterene/Hydrochlorothiazid 1 each PO QDAY #30 tablet 12/26/18 01/12/19 01/11/19 Rx [Triamterene-Hctz 75-50 mg Tab] amLODIPine 10 mg PO DAILY #30 tablet 12/26/18 01/12/19 01/11/19 Rx Active Medications: Generic Name Dose Route Start Last Admin Trade Name Freq PRN Reason Stop Dose Admin Acetaminophen 650 mg 01/12/19 00:49 01/13/19 09:47 Tylenol PO 650 mg Q4H PRN Administration Pain MILD(1-3)/Fever >100.5/[place] Atorvastatin Calcium 80 mg 01/12/19 22:00 01/12/19 21:56 Lipitor PO 80 mg QHS LUCA Administration Dextrose 50 ml 01/12/19 01:54 D50w (25gm) Syringe IV Q30MIN PRN Hypoglycemia Enoxaparin Sodium 30 mg 01/12/19 10:00 01/13/19 09:48 Lovenox SUB-Q 30 mg QDAY LUCA Administration Furosemide 20 mg 01/12/19 10:00 01/13/19 09:48 Lasix PO 20 mg QDAY LUCA Administration Gabapentin 400 mg 01/12/19 14:00 01/13/19 13:19 Neurontin PO 400 mg Q8HR LUCA Administration Levofloxacin/Dextrose 500 mg in 100 mls @ 100 mls/hr 01/12/19 00:00 01/12/19 00:52 Levaquin 500mg/100ml IV 01/20/19 00:59 100 mls/hr Q48H LUCA Administration Protocol Sodium Chloride 100 mls @ 999 mls/hr 01/13/19 11:51 Nacl 0.9% IV ERNESTINA PRN Hypotension Sodium Chloride 100 mls @ 999 mls/hr 01/13/19 13:19 Nacl 0.9% IV ERNESTINA PRN Hypotension Insulin Human Regular 0 units 01/12/19 03:00 01/13/19 11:30 Humulin R SUB-Q 3 units ACHS LUCA Administration Protocol Ondansetron HCl 4 mg 01/12/19 00:49 Zofran IV Q8H PRN Nausea And Vomiting Sodium Chloride 10 ml 01/12/19 10:00 01/13/19 10:46 Sodium Chloride Flush Syringe 10 Ml IV 10 ml BID LUCA Administration Sodium Chloride 10 ml 01/12/19 00:49 Sodium Chloride Flush Syringe 10 Ml IV PRN PRN LINE FLUSH
[2019-01-13] MEDS ORDERED: SODIUM CHLORIDE*PRIMING MACHINE ONLY FOR DIALYSIS MC ONE (15:23)
[2019-01-14] MEDS: GABAPENTIN 400 MG CAP PO SCH ×3 (05:31→21:08)
--- NOTE | 2019-01-14 06:53 | Progress Note ---
Assessment and Plan Assessment and plan: Patient is a 58-year-old history of CHF, hypertension, diabetes, GERD, depression, hyperlipidemia comes emergency room with complaints of worsening swelling of leg is now unable to walk and also complain of decreased urine output. She has urinated once a day. She was seen here in the emergency room on 2 previous occasions and was discharged home. Primary care physician who sent her here to the emergency room for admission and complaining of mild shortness of breath. On last admission she had nephrotic range proteinuria, and was advised to obtain biopsy and follow-up with renal as an outpatient but she never did. She found to be hypothermic in the emergency room pCXR Impression: Minimal right pleural effusion Assessment Acute on chronic kidney disease, suspect nephrotic syndrome Abnormal cardiac enzyme, chronically elevated Hypothermia CHF, stable Hypotension, relative Diabetes GERD Depression Hyperlipidemia Plan Admit to medicine Continue beta lottie, renal was consulted to see the patient Cardiac enzymes, consult cardiology Start empiric Antibiotic, follow cultures Check fingersticks initiate insulin sliding-scale Continue appropriate outpatient medications DVT prophylaxis Hemodialysis to start 01/13/19, Vas cath placed on 01/12/19 d/w Nephrology History Interval history: Patient was seen and examined. Follow-up on current diagnosis. No overnight events reported to me. Patient denies any chest pain, shortness breath, nausea/vomiting or severe headaches. Imaging, nursing note, chart, labs and old chart reviewed. Discussed with patient. Hospitalist Physical - Physical exam Narrative exam: Gen: WDWN, NAD, Awake, Alert, Orientated HEENT: NCAT, EOMI, PERRL, OP Clear Neck: supple, no adenopathy, no thyromegaly, no JVD CVS/Heart: RRR, normal S1S2, pulses present bilaterally Chest/Lungs: CTA B, Symmetrical chest expansion, good air entry bilaterally GI/Abdomen: soft, NTND, good bowel sounds, no guarding or rebound /Bladder: no suprapubic tenderness, no CVA or paraspinal tenderness Extermity/Skin: +ble edema, no obvious rash MSK: FROM x 4 Neuro: CN 2-12 grossly intact, no new focal deficits Psych: calm - Constitutional Vitals: Temp Pulse Resp BP Pulse Ox 98.0 F 79 20 132/63 100 01/14/19 04:08 01/14/19 04:08 01/14/19 04:08 01/14/19 04:08 01/14/19 04:08 General appearance: Present: no acute distress Results - Labs CBC & Chem 7: 01/12/19 04:00 01/12/19 04:00 Labs: Laboratory Last Values WBC 7.3 K/mm3 (4.5-11.0) 01/12/19 04:00 RBC 4.06 M/mm3 (3.65-5.03) 01/12/19 04:00 Hgb 10.5 gm/dl (10.1-14.3) 01/12/19 04:00 Hct 32.2 % (30.3-42.9) 01/12/19 04:00 MCV 79 fl (79-97) 01/12/19 04:00 MCH 26 pg (28-32) L 01/12/19 04:00 MCHC 33 % (30-34) 01/12/19 04:00 RDW 14.7 % (13.2-15.2) 01/12/19 04:00 Plt Count 418 K/mm3 (140-440) 01/12/19 04:00 Lymph % (Auto) 21.4 % (13.4-35.0) 01/12/19 04:00 Perkins % (Auto) 2.7 % (0.0-7.3) 01/12/19 04:00 Eos % (Auto) 0.2 % (0.0-4.3) 01/12/19 04:00 Baso % (Auto) 0.2 % (0.0-1.8) 01/12/19 04:00 Lymph # 1.6 K/mm3 (1.2-5.4) 01/12/19 04:00 Perkins # 0.2 K/mm3 (0.0-0.8) 01/12/19 04:00 Eos # 0.0 K/mm3 (0.0-0.4) 01/12/19 04:00 Baso # 0.0 K/mm3 (0.0-0.1) 01/12/19 04:00 Seg Neutrophils % 75.5 % (40.0-70.0) H 01/12/19 04:00 Seg Neutrophils # 5.5 K/mm3 (1.8-7.7) 01/12/19 04:00 Sodium 136 mmol/L (137-145) L 01/12/19 04:00 Potassium 4.5 mmol/L (3.6-5.0) 01/12/19 04:00 Chloride 104.5 mmol/L (98-107) 01/12/19 04:00 Carbon Dioxide 16 mmol/L (22-30) L 01/12/19 04:00 Anion Gap 20 mmol/L 01/12/19 04:00 BUN 69 mg/dL (7-17) H 01/12/19 04:00 Creatinine 4.8 mg/dL (0.7-1.2) H 01/12/19 04:00 Estimated GFR 11 ml/min 01/12/19 04:00 BUN/Creatinine Ratio 14 % 01/12/19 04:00 Glucose 348 mg/dL (65-100) H 01/12/19 04:00 POC Glucose 259 (70-105) H 01/13/19 22:15 Calcium 7.1 mg/dL (8.4-10.2) L 01/12/19 04:00 Total Creatine Kinase 1258 units/L (30-135) H 01/11/19 23:32 Troponin T 0.136 ng/mL (0.00-0.029) H* 01/11/19 23:32 NT-Pro-B Natriuret Pep 5277 pg/mL (0-900) H 01/11/19 17:42 TSH 4.780 mlU/mL (0.270-4.200) H 01/11/19 23:32 Free T4 0.99 ng/dL (0.76-1.46) 01/11/19 23:32 Hepatitis A IgM Ab Non-reactive (NonReactive) 01/13/19 12:28 Hep Bs Antigen Non-reactive (Negative) 01/13/19 12:28 Hep B Core IgM Ab Non-reactive (NonReactive) 01/13/19 12:28 Hepatitis C Antibody Non-reactive (NonReactive) 01/13/19 12:28 Active Medications - Current Medications Current Medications: Generic Name Dose Route Start Last Admin Trade Name Freq PRN Reason Stop Dose Admin Acetaminophen 650 mg 01/12/19 00:49 01/13/19 09:47 Tylenol PO 650 mg Q4H PRN Administration Pain MILD(1-3)/Fever >100.5/[place] Atorvastatin Calcium 80 mg 01/12/19 22:00 01/13/19 22:19 Lipitor PO 80 mg QHS LUCA Administration Dextrose 50 ml 01/12/19 01:54 D50w (25gm) Syringe IV Q30MIN PRN Hypoglycemia Enoxaparin Sodium 30 mg 01/12/19 10:00 01/13/19 09:48 Lovenox SUB-Q 30 mg QDAY LUCA Administration Furosemide 20 mg 01/12/19 10:00 01/13/19 09:48 Lasix PO 20 mg QDAY LUCA Administration Gabapentin 400 mg 01/12/19 14:00 01/14/19 05:31 Neurontin PO 400 mg Q8HR LUCA Administration Levofloxacin/Dextrose 500 mg in 100 mls @ 100 mls/hr 01/12/19 00:00 01/13/19 23:37 Levaquin 500mg/100ml IV 01/20/19 00:59 100 mls/hr Q48H LUCA Administration Protocol Sodium Chloride 100 mls @ 999 mls/hr 01/13/19 11:51 Nacl 0.9% IV ERNESTINA PRN Hypotension Sodium Chloride 100 mls @ 999 mls/hr 01/13/19 13:19 Nacl 0.9% IV ERNESTINA PRN Hypotension Insulin Human Regular 0 units 01/12/19 03:00 01/13/19 22:19 Humulin R SUB-Q 4 units ACHS LUCA Administration Protocol Ondansetron HCl 4 mg 01/12/19 00:49 Zofran IV Q8H PRN Nausea And Vomiting Sodium Chloride 10 ml 01/12/19 10:00 01/13/19 22:20 Sodium Chloride Flush Syringe 10 Ml IV 10 ml BID LUCA Administration Sodium Chloride 10 ml 01/12/19 00:49 Sodium Chloride Flush Syringe 10 Ml IV PRN PRN LINE FLUSH Nutrition/Malnutrition Assess - Dietary Evaluation Nutrition/Malnutrition Findings: Nutrition Notes Start: 01/12/19 10:30 Freq: Status: Active Protocol: Document 01/12/19 10:30 CC (Rec: 01/12/19 11:02 CC [id number]) Co-Sign 01/12/19 10:30 LP Nutrition Notes Need for Assessment generated from: supervisor type photography Initial or Follow up Assessment Current Diagnosis Acute Kidney Injury,Diabetes, Hypertension,Heart Failure, Hyperlipidemia Other Pertinent Diagnosis GERD, LE edema over past month Labs/Tests BUN 69, Creat 4.8, Gluc 348 Pertinent Medications Reviewed Height 5 ft Weight 71.2 kg [place] Body Weight (kg) 45.45 BMI 30.7 Intake Prior to Admission Poor Weight change and time frame Unknown Weight Status Obese Subjective/Other Information Skin risk assesment score of 16. 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 Pt reported she has had unintentional wt loss but did not know how much wt she has lost or what her UBW is. Pt reported N/V for a week. Percent of energy/protein needs met: 99% energy/ 100% protein Burn Absent Trauma Absent GI Symptoms Nausea,Vomiting Current % PO Good (75-100%) Minimum of two criteria Yes Energy Intake (non-severe) <75% Estimated Energy Requirement >7 days Fluid Accumulation Mild (non-severe) #1 Nutrition Diagnosis Malnutrition Etiology poor appetite As Evidenced by Signs and Symptoms Pt report of N/V >1 week, mild fluid accumulation, intake < 75% energy needs >7days Is patient on ventilator? No Is Patient Ambulatory and/or Out of Bed No REE-([place]-St. Jeor-confined to bed) 5119.675 Calculation Used for Recommendations [place]-St or Additional Notes PRO: 71-85g/day (1.0-1.2g/kg) for NOLBERTO and malnutrition Fluid: per MD Nutrition Intervention Change Diet Order: continue cardiac/consistent CHO, renal diet Goal #1 Meet at least 80% energy and protein needs po Anticipated Discharge Needs: cardiac/consistent CHO, renal diet Follow-Up By: 01/14/19 Additional Comments F/U po intakes, appetite
[2019-01-14] MEDS: INSULIN REGULAR, HUMAN 100 UNITS/1 ML SUB-Q SCH ×3 (08:51→22:08)
[2019-01-14] MEDS ORDERED: SODIUM CHLORIDE 0.9% 100 ML IV PRN (10:00)
--- NOTE | 2019-01-14 10:58 | Progress Note ---
Assessment and Plan - Patient Problems (1) ESRD (end stage renal disease) Current Visit: Yes Status: Acute Plan to address problem: pt with progressive CKD now approached ESRD with difficult to control volume overload and uremic symptoms, now on HD, second HD arranged for today. (2) Nephrotic syndrome Current Visit: Yes Status: Suspected Plan to address problem: secondary to biopsy proven diabetic nephropathy. volume control with HD (3) Type 2 diabetes mellitus with diabetic chronic kidney disease Current Visit: No Status: Acute Plan to address problem: DM management as per primary attending (4) Anemia in chronic illness Current Visit: Yes Status: Acute Plan to address problem: hb at target. will initiate ALBERTO/IV iron at outpatient HD clinic (5) Elevated troponin Current Visit: No Status: Acute Plan to address problem: likely secondary to ESRD. follow cardiology recommendations (6) Hyponatremia Current Visit: Yes Status: Acute Plan to address problem: most likely secondary to volume overload. volume control with HD Subjective Date of service: 01/14/19 Principal diagnosis: CKD Interval history: PT awake, alert, denies CP, SOB, fever, chills, reports persistent b/l LE edema. Objective - Vital Signs Vital signs: Vital Signs - 12hr 01/14/19 01/14/19 01/14/19 00:38 04:08 07:46 Temperature 97.8 F 98.0 F 97.8 F Pulse Rate 78 79 77 Respiratory 18 20 18 Rate Blood Pressure 124/63 132/63 137/69 O2 Sat by Pulse 100 100 100 Oximetry 01/14/19 01/14/19 01/14/19 09:55 10:00 10:15 Temperature 98.3 F Pulse Rate 84 84 82 Respiratory 18 Rate Blood Pressure 153/77 153/77 156/77 O2 Sat by Pulse Oximetry 01/14/19 10:30 Temperature Pulse Rate 83 Respiratory Rate Blood Pressure 141/77 O2 Sat by Pulse Oximetry - General Appearance General appearance: well-developed, well-nourished, appears stated age EENT: ATNC, PERRL, mucous membranes moist Neck: no JVD Respiratory: Present: Clear to Ascultation Cardiology: regular, S1S2 Gastrointestinal: normoactive bowel sounds Integumentary: no rash, other (+ edema ) Neurologic: no focal deficit, alert and oriented x3, strength 5/5, CN 3-12 intact Psychiatric: mood/affect appropriate, cooperative - Lab 01/12/19 04:00 01/12/19 04:00 Most recent lab results Calcium 7.1 mg/dL (8.4-10.2) L 01/12/19 04:00 Medications & Allergies - Medications Allergies/Adverse Reactions: Allergies Penicillins Allergy (Verified 10/30/18 11:25) Unknown Sulfa (Sulfonamide Antibiotics) Allergy (Verified 10/30/18 11:25) Unknown Home Medications: Home Medications Medication Instructions Recorded Confirmed Last Taken Type Furosemide [Lasix TAB] 40 mg PO DAILY@0600 #30 tablet 11/20/18 01/12/19 Unknown Rx Gabapentin 400 mg PO TID capsule 11/20/18 01/12/19 01/11/19 Rx Lisinopril [Zestril TAB] 5 mg PO QDAY #30 tablet 11/20/18 01/12/19 01/11/19 Rx Metoprolol [Lopressor TAB] 100 mg PO QDAY #30 tablet 11/20/18 01/12/19 01/11/19 Rx Triamter/Hctz 37.5-25 mg 2 each PO QAM tablet 11/20/18 01/12/19 01/11/19 Rx [Maxzide-25] hydrALAZINE [Apresoline TAB] 100 mg PO BID #60 tab 11/20/18 01/12/19 Unknown Rx traMADol [Ultram 50 MG tab] 50 mg PO Q12HR PRN #10 tablet 11/20/18 01/12/19 Unknown Rx traZODone [Desyrel] 100 mg PO QHS #30 tablet 11/20/18 01/12/19 Unknown Rx AtorvaSTATin [Lipitor] 80 mg PO QHS #30 tablet 12/26/18 01/12/19 Unknown Rx Gabapentin 400 mg PO Q8HR #20 cap 12/26/18 01/12/19 01/11/19 Rx Insulin Aspart Prot/Aspart(Nf) 10 units SQ QAM #300 units 12/26/18 01/12/19 01/11/19 Rx [NovoLOG Mix 70/30 VIAL] Triamterene/Hydrochlorothiazid 1 each PO QDAY #30 tablet 12/26/18 01/12/19 01/11/19 Rx [Triamterene-Hctz 75-50 mg Tab] amLODIPine 10 mg PO DAILY #30 tablet 12/26/18 01/12/19 01/11/19 Rx Active Medications: Generic Name Dose Route Start Last Admin Trade Name Freq PRN Reason Stop Dose Admin Acetaminophen 650 mg 01/12/19 00:49 01/13/19 09:47 Tylenol PO 650 mg Q4H PRN Administration Pain MILD(1-3)/Fever >100.5/[place] Atorvastatin Calcium 80 mg 01/12/19 22:00 01/13/19 22:19 Lipitor PO 80 mg QHS LUCA Administration Dextrose 50 ml 01/12/19 01:54 D50w (25gm) Syringe IV Q30MIN PRN Hypoglycemia Enoxaparin Sodium 30 mg 01/12/19 10:00 01/13/19 09:48 Lovenox SUB-Q 30 mg QDAY LUCA Administration Furosemide 20 mg 01/12/19 10:00 01/13/19 09:48 Lasix PO 20 mg QDAY LUCA Administration Gabapentin 400 mg 01/12/19 14:00 01/14/19 05:31 Neurontin PO 400 mg Q8HR LUCA Administration Levofloxacin/Dextrose 500 mg in 100 mls @ 100 mls/hr 01/12/19 00:00 01/13/19 23:37 Levaquin 500mg/100ml IV 01/20/19 00:59 100 mls/hr Q48H LUCA Administration Protocol Sodium Chloride 100 mls @ 999 mls/hr 01/14/19 10:00 Nacl 0.9% IV ERNESTINA PRN Hypotension Insulin Human Regular 0 units 01/12/19 03:00 01/14/19 08:51 Humulin R SUB-Q Not Given ACHS [facility] Protocol Ondansetron HCl 4 mg 01/12/19 00:49 Zofran IV Q8H PRN Nausea And Vomiting Sodium Chloride 10 ml 01/12/19 10:00 01/13/19 22:20 Sodium Chloride Flush Syringe 10 Ml IV 10 ml BID LUCA Administration Sodium Chloride 10 ml 01/12/19 00:49 Sodium Chloride Flush Syringe 10 Ml IV PRN PRN LINE FLUSH
[2019-01-14] MEDS ORDERED: SODIUM CHLORIDE*PRIMING MACHINE ONLY FOR DIALYSIS MC ONE (12:06)
[2019-01-14] MEDS: ENOXAPARIN 30 MG/0.3 ML INJ SUB-Q SCH (16:27)
[2019-01-14] MEDS: FUROSEMIDE 20 MG TAB PO SCH (18:01)
[2019-01-15] MEDS: GABAPENTIN 400 MG CAP PO SCH ×3 (05:39→22:18)
[2019-01-15] MEDS: INSULIN REGULAR, HUMAN 100 UNITS/1 ML SUB-Q SCH ×5 (07:33→22:18)
[2019-01-15 08:50] LABS: Calcium 7.2 mg/dL (8.4-10.2)
[2019-01-15] MEDS: FUROSEMIDE 20 MG TAB PO SCH (10:09)
[2019-01-15] MEDS: ENOXAPARIN 30 MG/0.3 ML INJ SUB-Q SCH (10:09)
[2019-01-15] MEDS ORDERED: SODIUM CHLORIDE 0.9% 100 ML IV PRN (11:42)
--- NOTE | 2019-01-15 11:56 | Progress Note ---
Assessment and Plan - Patient Problems (1) ESRD (end stage renal disease) Current Visit: Yes Status: Acute Plan to address problem: pt with progressive CKD now approached ESRD with difficult to control volume overload and uremic symptoms, now on HD, cont MWF schedule . (2) Nephrotic syndrome Current Visit: Yes Status: Suspected Plan to address problem: secondary to biopsy proven diabetic nephropathy. volume control with HD (3) Type 2 diabetes mellitus with diabetic chronic kidney disease Current Visit: No Status: Acute Plan to address problem: DM management as per primary attending (4) Anemia in chronic illness Current Visit: Yes Status: Acute Plan to address problem: hb at target. will initiate ALBERTO/IV iron at outpatient HD clinic (5) Elevated troponin Current Visit: No Status: Acute Plan to address problem: likely secondary to ESRD. follow cardiology recommendations (6) Hyponatremia Current Visit: Yes Status: Acute Plan to address problem: most likely secondary to volume overload. volume control with HD Subjective Date of service: 01/15/19 Principal diagnosis: CKD Interval history: PT awake, alert, denies CP, SOB, fever, chills, reports persistent b/l LE edema. Objective - Vital Signs Vital signs: Vital Signs - 12hr 01/15/19 01/15/19 05:24 11:03 Temperature 98.1 F Pulse Rate 89 83 Respiratory 20 Rate Blood Pressure 176/77 O2 Sat by Pulse 97 Oximetry - General Appearance General appearance: well-developed, well-nourished, appears stated age EENT: ATNC, PERRL, mucous membranes moist Neck: no JVD Respiratory: Present: Clear to Ascultation Cardiology: regular, S1S2 Gastrointestinal: normoactive bowel sounds Integumentary: no rash Neurologic: no focal deficit, alert and oriented x3, gait normal, CN 3-12 intact Psychiatric: mood/affect appropriate, cooperative - Lab 01/12/19 04:00 01/15/19 07:04 Most recent lab results Calcium 7.2 mg/dL (8.4-10.2) L 01/15/19 07:04 Medications & Allergies - Medications Allergies/Adverse Reactions: Allergies Penicillins Allergy (Verified 10/30/18 11:25) Unknown Sulfa (Sulfonamide Antibiotics) Allergy (Verified 10/30/18 11:25) Unknown Home Medications: Home Medications Medication Instructions Recorded Confirmed Last Taken Type Furosemide [Lasix TAB] 40 mg PO DAILY@0600 #30 tablet 11/20/18 01/12/19 Unknown Rx Gabapentin 400 mg PO TID capsule 11/20/18 01/12/19 01/11/19 Rx Lisinopril [Zestril TAB] 5 mg PO QDAY #30 tablet 11/20/18 01/12/19 01/11/19 Rx Metoprolol [Lopressor TAB] 100 mg PO QDAY #30 tablet 11/20/18 01/12/19 01/11/19 Rx Triamter/Hctz 37.5-25 mg 2 each PO QAM tablet 11/20/18 01/12/19 01/11/19 Rx [Maxzide-25] hydrALAZINE [Apresoline TAB] 100 mg PO BID #60 tab 11/20/18 01/12/19 Unknown Rx traMADol [Ultram 50 MG tab] 50 mg PO Q12HR PRN #10 tablet 11/20/18 01/12/19 Unknown Rx traZODone [Desyrel] 100 mg PO QHS #30 tablet 11/20/18 01/12/19 Unknown Rx AtorvaSTATin [Lipitor] 80 mg PO QHS #30 tablet 12/26/18 01/12/19 Unknown Rx Gabapentin 400 mg PO Q8HR #20 cap 12/26/18 01/12/19 01/11/19 Rx Insulin Aspart Prot/Aspart(Nf) 10 units SQ QAM #300 units 12/26/18 01/12/1912/22 Rx [NovoLOG Mix 70/30 VIAL] Triamterene/Hydrochlorothiazid 1 each PO QDAY #30 tablet 12/26/18 01/12/19 01/11/19 Rx [Triamterene-Hctz 75-50 mg Tab] amLODIPine 10 mg PO DAILY #30 tablet 12/26/18 01/12/19 01/11/19 Rx Active Medications: Generic Name Dose Route Start Last Admin Trade Name Freq PRN Reason Stop Dose Admin Acetaminophen 650 mg 01/12/19 00:49 01/13/19 09:47 Tylenol PO 650 mg Q4H PRN Administration Pain MILD(1-3)/Fever >100.5/[place] Atorvastatin Calcium 80 mg 01/12/19 22:00 01/14/19 21:08 Lipitor PO 80 mg QHS LUCA Administration Dextrose 50 ml 01/12/19 01:54 D50w (25gm) Syringe IV Q30MIN PRN Hypoglycemia Enoxaparin Sodium 30 mg 01/12/19 10:00 01/15/19 10:09 Lovenox SUB-Q 30 mg QDAY LUCA Administration Furosemide 20 mg 01/12/19 10:00 01/15/19 10:09 Lasix PO 20 mg QDAY LUCA Administration Gabapentin 400 mg 01/12/19 14:00 01/15/19 05:39 Neurontin PO 400 mg Q8HR LUCA Administration Levofloxacin/Dextrose 500 mg in 100 mls @ 100 mls/hr 01/12/19 00:00 01/13/19 23:37 Levaquin 500mg/100ml IV 01/20/19 00:59 100 mls/hr Q48H LUCA Administration Protocol Sodium Chloride 100 mls @ 999 mls/hr 01/14/19 10:00 Nacl 0.9% IV ERNESTINA PRN Hypotension Sodium Chloride 100 mls @ 999 mls/hr 01/15/19 11:42 Nacl 0.9% IV ERNESTINA PRN Hypotension Insulin Human Regular 0 units 01/12/19 03:00 01/15/19 10:11 Humulin R SUB-Q Not Given ACHS LUCA Protocol Ondansetron HCl 4 mg 01/12/19 00:49 Zofran IV Q8H PRN Nausea And Vomiting Sodium Chloride 10 ml 01/12/19 10:00 01/15/19 10:09 Sodium Chloride Flush Syringe 10 Ml IV 10 ml BID LUCA Administration Sodium Chloride 10 ml 01/12/19 00:49 Sodium Chloride Flush Syringe 10 Ml IV PRN PRN LINE FLUSH
--- NOTE | 2019-01-15 14:55 | Progress Note ---
Assessment and Plan Assessment and plan: Patient is a 58-year-old history of CHF, hypertension, diabetes, GERD, depression, hyperlipidemia comes emergency room with complaints of worsening swelling of leg is now unable to walk and also complain of decreased urine output. She has urinated once a day. She was seen here in the emergency room on 2 previous occasions and was discharged home. Primary care physician who sent her here to the emergency room for admission and complaining of mild shortness of breath. On last admission she had nephrotic range proteinuria, and was advised to obtain biopsy and follow-up with renal as an outpatient but she never did. She found to be hypothermic in the emergency room pCXR Impression: Minimal right pleural effusion Assessment Acute on chronic kidney disease, suspect nephrotic syndrome Abnormal cardiac enzyme, chronically elevated Hypothermia CHF, stable Hypotension, relative Diabetes GERD Depression Hyperlipidemia Plan Admit to medicine Continue beta lottie, renal was consulted to see the patient Cardiac enzymes, consult cardiology Start empiric Antibiotic, follow cultures Check fingersticks initiate insulin sliding-scale Continue appropriate outpatient medications DVT prophylaxis Hemodialysis to start 01/13/19, Vas cath placed on 01/12/19 d/w Nephrology History Interval history: Patient was seen and examined. Follow-up on current diagnosis. No overnight events reported to me. Patient denies any chest pain, shortness breath, nausea/vomiting or severe headaches. Imaging, nursing note, chart, labs and old chart reviewed. Discussed with patient. Hospitalist Physical - Physical exam Narrative exam: Gen: WDWN, NAD, Awake, Alert, Orientated HEENT: NCAT, EOMI, PERRL, OP Clear Neck: supple, no adenopathy, no thyromegaly, no JVD CVS/Heart: RRR, normal S1S2, pulses present bilaterally Chest/Lungs: CTA B, Symmetrical chest expansion, good air entry bilaterally GI/Abdomen: soft, NTND, good bowel sounds, no guarding or rebound /Bladder: no suprapubic tenderness, no CVA or paraspinal tenderness Extermity/Skin: +ble edema, no obvious rash MSK: FROM x 4 Neuro: CN 2-12 grossly intact, no new focal deficits Psych: calm - Constitutional Vitals: Temp Pulse Resp BP Pulse Ox 98.1 F 83 20 176/77 97 01/15/19 05:24 01/15/19 11:03 01/15/19 05:24 01/15/19 05:24 01/15/19 05:24 General appearance: Present: no acute distress Results - Labs CBC & Chem 7: 01/12/19 04:00 01/15/19 07:04 Labs: Laboratory Last Values WBC 7.3 K/mm3 (4.5-11.0) 01/12/19 04:00 RBC 4.06 M/mm3 (3.65-5.03) 01/12/19 04:00 Hgb 10.5 gm/dl (10.1-14.3) 01/12/19 04:00 Hct 32.2 % (30.3-42.9) 01/12/19 04:00 MCV 79 fl (79-97) 01/12/19 04:00 MCH 26 pg (28-32) L 01/12/19 04:00 MCHC 33 % (30-34) 01/12/19 04:00 RDW 14.7 % (13.2-15.2) 01/12/19 04:00 Plt Count 418 K/mm3 (140-440) 01/12/19 04:00 Lymph % (Auto) 21.4 % (13.4-35.0) 01/12/19 04:00 [place] % (Auto) 2.7 % (0.0-7.3) 01/12/19 04:00 Eos % (Auto) 0.2 % (0.0-4.3) 01/12/19 04:00 Baso % (Auto) 0.2 % (0.0-1.8) 01/12/19 04:00 Lymph # 1.6 K/mm3 (1.2-5.4) 01/12/19 04:00 [place] # 0.2 K/mm3 (0.0-0.8) 01/12/19 04:00 Eos # 0.0 K/mm3 (0.0-0.4) 01/12/19 04:00 Baso # 0.0 K/mm3 (0.0-0.1) 01/12/19 04:00 Seg Neutrophils % 75.5 % (40.0-70.0) H 01/12/19 04:00 Seg Neutrophils # 5.5 K/mm3 (1.8-7.7) 01/12/19 04:00 Sodium 137 mmol/L (137-145) 01/15/19 07:04 Potassium 3.5 mmol/L (3.6-5.0) L D 01/15/19 07:04 Chloride 101.6 mmol/L (98-107) 01/15/19 07:04 Carbon Dioxide 22 mmol/L (22-30) 01/15/19 07:04 Anion Gap 17 mmol/L 01/15/19 07:04 BUN 31 mg/dL (7-17) H 01/15/19 07:04 Creatinine 2.6 mg/dL (0.7-1.2) H 01/15/19 07:04 Estimated GFR 23 ml/min 01/15/19 07:04 BUN/Creatinine Ratio 12 % 01/15/19 07:04 Glucose 167 mg/dL (65-100) H 01/15/19 07:04 POC Glucose 194 (70-105) H 01/15/19 12:23 Calcium 7.2 mg/dL (8.4-10.2) L 01/15/19 07:04 Total Creatine Kinase 1258 units/L (30-135) H 01/11/19 23:32 Troponin T 0.136 ng/mL (0.00-0.029) H* 01/11/19 23:32 NT-Pro-B Natriuret Pep 5277 pg/mL (0-900) H 01/11/19 17:42 TSH 4.780 mlU/mL (0.270-4.200) H 01/11/19 23:32 Free T4 0.99 ng/dL (0.76-1.46) 01/11/19 23:32 Total Cortisol 32.2 mcg/dL () 01/11/19 23:32 Hepatitis A IgM Ab Non-reactive (NonReactive) 01/13/19 12:28 Hep Bs Antigen Non-reactive (Negative) 01/13/19 12:28 Hep B Core IgM Ab Non-reactive (NonReactive) 01/13/19 12:28 Hepatitis C Antibody Non-reactive (NonReactive) 01/13/19 12:28 Active Medications - Current Medications Current Medications: Generic Name Dose Route Start Last Admin Trade Name Freq PRN Reason Stop Dose Admin Acetaminophen 650 mg 01/12/19 00:49 01/13/19 09:47 Tylenol PO 650 mg Q4H PRN Administration Pain MILD(1-3)/Fever >100.5/[place] Atorvastatin Calcium 80 mg 01/12/19 22:00 01/14/19 21:08 Lipitor PO 80 mg QHS LUCA Administration Dextrose 50 ml 01/12/19 01:54 D50w (25gm) Syringe IV Q30MIN PRN Hypoglycemia Enoxaparin Sodium 30 mg 01/12/19 10:00 01/15/19 10:09 Lovenox SUB-Q 30 mg QDAY LUCA Administration Furosemide 20 mg 01/12/19 10:00 01/15/19 10:09 Lasix PO 20 mg QDAY LUCA Administration Gabapentin 400 mg 01/12/19 14:00 01/15/19 14:20 Neurontin PO 400 mg Q8HR LUCA Administration Levofloxacin/Dextrose 500 mg in 100 mls @ 100 mls/hr 01/12/19 00:00 01/13/19 23:37 Levaquin 500mg/100ml IV 01/20/19 00:59 100 mls/hr Q48H LUCA Administration Protocol Sodium Chloride 100 mls @ 999 mls/hr 01/14/19 10:00 Nacl 0.9% IV ERNESTINA PRN Hypotension Sodium Chloride 100 mls @ 999 mls/hr 01/15/19 11:42 Nacl 0.9% IV ERNESTINA PRN Hypotension Insulin Human Regular 0 units 01/12/19 03:00 01/15/19 12:27 Humulin R SUB-Q 2 units ACHS LUCA Administration Protocol Ondansetron HCl 4 mg 01/12/19 00:49 Zofran IV Q8H PRN Nausea And Vomiting Sodium Chloride 10 ml 01/12/19 10:00 01/15/19 10:09 Sodium Chloride Flush Syringe 10 Ml IV 10 ml BID LUCA Administration Sodium Chloride 10 ml 01/12/19 00:49 Sodium Chloride Flush Syringe 10 Ml IV PRN PRN LINE FLUSH Nutrition/Malnutrition Assess - Dietary Evaluation Nutrition/Malnutrition Findings: Nutrition Notes Start: 01/12/19 10:30 Freq: Status: Active Protocol: Document 01/14/19 15:31 RM (Rec: 01/14/19 15:36 RM [id number]) Nutrition Notes Initial or Follow up Reassessment Current Diagnosis Acute Kidney Injury,Diabetes, Hypertension,Heart Failure, Hyperlipidemia Other Pertinent Diagnosis GERD, LE edema over past month over past month Current Diet Renal Labs/Tests Reviewed Pertinent Medications [place] Height 5 ft Weight 70.2 kg [place] Body Weight (kg) 45.45 BMI 30.2 Weight change and time frame [facility] Previous wt in record likely d/t human error. Subjective/Other Information Pt stated that her appetite is improving. Noted lunch at bedside w/75% eaten. Pt stated that is the best she has eaten since admission. Denied N/V. Percent of energy/protein needs met: 100%/100% Burn Absent Trauma Absent Minimum of two criteria Yes Energy Intake (non-severe) <75% Estimated Energy Requirement >7 days Fluid Accumulation Mild (non-severe) #1 Nutrition Diagnosis Malnutrition Diagnosis Progress(for reassessment Continues documentation) Is patient on ventilator? No Is Patient Ambulatory and/or Out of Bed No REE-([place] Jeor-confined to bed) 1460.736 Calculation Used for Recommendations [place] Jeor Additional Notes PRO: 71-85g/day (1.0-1.2g/kg) for NOLBERTO and malnutrition Fluid: per MD Nutrition Intervention Change Diet Order: Continue current Goal #1 Continue to meet at least 75% energy and protein needs Anticipated Discharge Needs: Renal diet Follow-Up By: 01/17/19 Additional Comments Follow for stable intakes
[2019-01-15] MEDS ORDERED: amLODIPine 10 MG TAB PO ONE (22:21)
[2019-01-15] MEDS ORDERED: hydrALAZINE 20 MG/1 ML INJ IV PRN (22:22)
[2019-01-16] MEDS: GABAPENTIN 400 MG CAP PO SCH ×3 (05:35→22:04)
--- NOTE | 2019-01-16 06:11 | Progress Note ---
Assessment and Plan Assessment and plan: Patient is a 58-year-old history of CHF, hypertension, diabetes, GERD, depression, hyperlipidemia comes emergency room with complaints of worsening swelling of leg is now unable to walk and also complain of decreased urine output. She has urinated once a day. She was seen here in the emergency room on 2 previous occasions and was discharged home. Primary care physician who sent her here to the emergency room for admission and complaining of mild shortness of breath. On last admission she had nephrotic range proteinuria, and was advised to obtain biopsy and follow-up with renal as an outpatient but she never did. She found to be hypothermic in the emergency room. * pCXR Impression: Minimal right pleural effusion Acute on chronic kidney disease ckd 5, suspect nephrotic syndrome to ESRD: Nephrology following, HD started Hemodialysis to start 01/13/19, Vas cath placed on 01/12/19 Abnormal cardiac enzyme, chronically elevated Hypothermia resolved: continue to monitor CHF, stable Hypotension, relative: stable Diabetes mellitus type 2: ssi, ada GERD: ppi Depression Hyperlipidemia d/w Nephrology History Interval history: Patient was seen and examined. Follow-up on current diagnosis. No overnight events reported to me. Patient denies any chest pain, shortness breath, nausea/vomiting or severe headaches. Imaging, nursing note, chart, labs and old chart reviewed. Discussed with patient. Hospitalist Physical - Physical exam Narrative exam: Gen: WDWN, NAD, Awake, Alert, Orientated HEENT: NCAT, EOMI, PERRL, OP Clear Neck: supple, no adenopathy, no thyromegaly, no JVD CVS/Heart: RRR, normal S1S2, pulses present bilaterally Chest/Lungs: CTA B, Symmetrical chest expansion, good air entry bilaterally GI/Abdomen: soft, NTND, good bowel sounds, no guarding or rebound /Bladder: no suprapubic tenderness, no CVA or paraspinal tenderness Extermity/Skin: +ble edema, no obvious rash MSK: FROM x 4 Neuro: CN 2-12 grossly intact, no new focal deficits Psych: calm - Constitutional Vitals: Temp Pulse Resp BP Pulse Ox 98.5 F 95 H 18 155/70 100 01/16/19 00:09 01/16/19 00:08 01/16/19 00:08 01/16/19 03:15 01/16/19 00:08 General appearance: Present: no acute distress Results - Labs CBC & Chem 7: 01/12/19 04:00 01/15/19 07:04 Labs: Laboratory Last Values WBC 7.3 K/mm3 (4.5-11.0) 01/12/19 04:00 RBC 4.06 M/mm3 (3.65-5.03) 01/12/19 04:00 Hgb 10.5 gm/dl (10.1-14.3) 01/12/19 04:00 Hct 32.2 % (30.3-42.9) 01/12/19 04:00 MCV 79 fl (79-97) 01/12/19 04:00 MCH 26 pg (28-32) L 01/12/19 04:00 MCHC 33 % (30-34) 01/12/19 04:00 RDW 14.7 % (13.2-15.2) 01/12/19 04:00 Plt Count 418 K/mm3 (140-440) 01/12/19 04:00 Lymph % (Auto) 21.4 % (13.4-35.0) 01/12/19 04:00 [place] % (Auto) 2.7 % (0.0-7.3) 01/12/19 04:00 Eos % (Auto) 0.2 % (0.0-4.3) 01/12/19 04:00 Baso % (Auto) 0.2 % (0.0-1.8) 01/12/19 04:00 Lymph # 1.6 K/mm3 (1.2-5.4) 01/12/19 04:00 [place] # 0.2 K/mm3 (0.0-0.8) 01/12/19 04:00 Eos # 0.0 K/mm3 (0.0-0.4) 01/12/19 04:00 Baso # 0.0 K/mm3 (0.0-0.1) 01/12/19 04:00 Seg Neutrophils % 75.5 % (40.0-70.0) H 01/12/19 04:00 Seg Neutrophils # 5.5 K/mm3 (1.8-7.7) 01/12/19 04:00 Sodium 137 mmol/L (137-145) 01/15/19 07:04 Potassium 3.5 mmol/L (3.6-5.0) L D 01/15/19 07:04 Chloride 101.6 mmol/L (98-107) 01/15/19 07:04 Carbon Dioxide 22 mmol/L (22-30) 01/15/19 07:04 Anion Gap 17 mmol/L 01/15/19 07:04 BUN 31 mg/dL (7-17) H 01/15/19 07:04 Creatinine 2.6 mg/dL (0.7-1.2) H 01/15/19 07:04 Estimated GFR 23 ml/min 01/15/19 07:04 BUN/Creatinine Ratio 12 % 01/15/19 07:04 Glucose 167 mg/dL (65-100) H 01/15/19 07:04 POC Glucose 212 (70-105) H 01/15/19 22:18 Calcium 7.2 mg/dL (8.4-10.2) L 01/15/19 07:04 Total Creatine Kinase 1258 units/L (30-135) H 01/11/19 23:32 Troponin T 0.136 ng/mL (0.00-0.029) H* 01/11/19 23:32 NT-Pro-B Natriuret Pep 5277 pg/mL (0-900) H 01/11/19 17:42 TSH 4.780 mlU/mL (0.270-4.200) H 01/11/19 23:32 Free T4 0.99 ng/dL (0.76-1.46) 01/11/19 23:32 Total Cortisol 32.2 mcg/dL () 01/11/19 23:32 Hepatitis A IgM Ab Non-reactive (NonReactive) 01/13/19 12:28 Hep Bs Antigen Non-reactive (Negative) 01/13/19 12:28 Hep B Core IgM Ab Non-reactive (NonReactive) 01/13/19 12:28 Hepatitis C Antibody Non-reactive (NonReactive) 01/13/19 12:28 Active Medications - Current Medications Current Medications: Generic Name Dose Route Start Last Admin Trade Name Freq PRN Reason Stop Dose Admin Acetaminophen 650 mg 01/12/19 00:49 01/13/19 09:47 Tylenol PO 650 mg Q4H PRN Administration Pain MILD(1-3)/Fever >100.5/[place] Amlodipine Besylate 10 mg 01/16/19 10:00 Amlodipine PO DAILY LUCA Atorvastatin Calcium 80 mg 01/12/19 22:00 01/15/19 22:18 Lipitor PO 80 mg QHS LUCA Administration Dextrose 50 ml 01/12/19 01:54 D50w (25gm) Syringe IV Q30MIN PRN Hypoglycemia Enoxaparin Sodium 30 mg 01/12/19 10:00 01/15/19 10:09 Lovenox SUB-Q 30 mg QDAY LUCA Administration Furosemide 20 mg 01/12/19 10:00 01/15/19 10:09 Lasix PO 20 mg QDAY LUCA Administration Gabapentin 400 mg 01/12/19 14:00 01/16/19 05:35 Neurontin PO 400 mg Q8HR LUCA Administration Hydralazine HCl 10 mg 01/15/19 22:22 Apresoline IV Q4HR PRN Blood Pressure Levofloxacin/Dextrose 500 mg in 100 mls @ 100 mls/hr 01/12/19 00:00 01/15/19 23:20 Levaquin 500mg/100ml IV 01/20/19 00:59 100 mls/hr Q48H LUCA Administration Protocol Sodium Chloride 100 mls @ 999 mls/hr 01/14/19 10:00 Nacl 0.9% IV ERNESTINA PRN Hypotension Sodium Chloride 100 mls @ 999 mls/hr 01/15/19 11:42 Nacl 0.9% IV ERNESTINA PRN Hypotension Insulin Human Regular 0 units 01/12/19 03:00 01/15/19 22:18 Humulin R SUB-Q 3 units ACHS LUCA Administration Protocol Ondansetron HCl 4 mg 01/12/19 00:49 Zofran IV Q8H PRN Nausea And Vomiting Sodium Chloride 10 ml 01/12/19 10:00 01/15/19 22:18 Sodium Chloride Flush Syringe 10 Ml IV 10 ml BID LUCA Administration Sodium Chloride 10 ml 01/12/19 00:49 Sodium Chloride Flush Syringe 10 Ml IV PRN PRN LINE FLUSH Nutrition/Malnutrition Assess - Dietary Evaluation Nutrition/Malnutrition Findings: Nutrition Notes Start: 01/12/19 10:30 Freq: Status: Active Protocol: Document 01/14/19 15:31 RM (Rec: 01/14/19 15:36 RM [id number]) Nutrition Notes Initial or Follow up Reassessment Current Diagnosis Acute Kidney Injury,Diabetes, Hypertension,Heart Failure, Hyperlipidemia Other Pertinent Diagnosis GERD, LE edema over past month over past month Current Diet Renal Labs/Tests Reviewed Pertinent Medications [place] Height 5 ft Weight 70.2 kg [place] Body Weight (kg) 45.45 BMI 30.2 Weight change and time frame Current wt obtained from [facility]. Previous wt in record likely d/t human error. Subjective/Other Information Pt stated that her appetite is improving. Noted lunch at bedside w/75% eaten. Pt stated that is the best she has eaten since admission. Denied N/V. Percent of energy/protein needs met: 100%/100% Burn Absent Trauma Absent Minimum of two criteria Yes Energy Intake (non-severe) <75% Estimated Energy Requirement >7 days Fluid Accumulation Mild (non-severe) #1 Nutrition Diagnosis Malnutrition Diagnosis Progress(for reassessment Continues documentation) Is patient on ventilator? No Is Patient Ambulatory and/or Out of Bed No REE-([place]-St. Jeor-confined to bed) 1460.736 Calculation Used for Recommendations [place]-St Jeor Additional Notes PRO: 71-85g/day (1.0-1.2g/kg) for NOLBERTO and malnutrition Fluid: per MD Nutrition Intervention Change Diet Order: Continue current Goal #1 Continue to meet at least 75% energy and protein needs Anticipated Discharge Needs: Renal diet Follow-Up By: 01/17/19 Additional Comments Follow for stable intakes
[2019-01-16] MEDS: INSULIN REGULAR, HUMAN 100 UNITS/1 ML SUB-Q SCH ×4 (07:20→22:05)
--- NOTE | 2019-01-16 09:32 | Progress Note ---
Assessment and Plan - Patient Problems (1) ESRD (end stage renal disease) Current Visit: Yes Status: Acute Plan to address problem: pt with progressive CKD now approached ESRD with difficult to control volume overload and uremic symptoms, now on HD, cont MWF schedule . (2) Nephrotic syndrome Current Visit: Yes Status: Suspected Plan to address problem: secondary to biopsy proven diabetic nephropathy. volume control with HD (3) Type 2 diabetes mellitus with diabetic chronic kidney disease Current Visit: No Status: Acute Plan to address problem: DM management as per primary attending (4) Anemia in chronic illness Current Visit: Yes Status: Acute Plan to address problem: hb at target. will initiate ALBERTO/IV iron at outpatient HD clinic (5) Elevated troponin Current Visit: No Status: Acute Plan to address problem: likely secondary to ESRD. follow cardiology recommendations (6) Hyponatremia Current Visit: Yes Status: Acute Plan to address problem: most likely secondary to volume overload. volume control with HD Subjective Date of service: 01/16/19 Principal diagnosis: CKD Interval history: PT awake, alert, denies CP, SOB, fever, chills, reports persistent b/l LE edema. Objective - Vital Signs Vital signs: Vital Signs - 12hr 01/15/19 01/16/19 01/16/19 23:19 00:08 00:09 Temperature 98.5 F Pulse Rate 90 95 H Respiratory 18 Rate Blood Pressure 172/76 170/74 O2 Sat by Pulse 100 Oximetry 01/16/19 01/16/19 03:15 06:09 Temperature Pulse Rate 89 Respiratory 18 Rate Blood Pressure 155/70 136/68 O2 Sat by Pulse 98 Oximetry - General Appearance General appearance: well-developed, well-nourished, appears stated age EENT: ATNC, PERRL, mucous membranes moist Neck: no JVD Respiratory: Present: Clear to Ascultation Cardiology: regular, S1S2 Gastrointestinal: normoactive bowel sounds Integumentary: no rash, other (+ edema b/l LE ) Neurologic: no focal deficit, alert and oriented x3, strength 5/5, CN 3-12 intact Psychiatric: mood/affect appropriate, cooperative - Lab 01/12/19 04:00 01/15/19 07:04 Most recent lab results Calcium 7.2 mg/dL (8.4-10.2) L 01/15/19 07:04 Medications & Allergies - Medications Allergies/Adverse Reactions: Allergies Penicillins Allergy (Verified 10/30/18 11:25) Unknown Sulfa (Sulfonamide Antibiotics) Allergy (Verified 10/30/18 11:25) Unknown Home Medications: Home Medications Medication Instructions Recorded Confirmed Last Taken Type Furosemide [Lasix TAB] 40 mg PO DAILY@0600 #30 tablet 11/20/18 01/12/19 Unknown Rx Gabapentin 400 mg PO TID capsule 11/20/18 01/12/19 01/11/19 Rx Lisinopril [Zestril TAB] 5 mg PO QDAY #30 tablet 11/20/18 01/12/19 01/11/19 Rx Metoprolol [Lopressor TAB] 100 mg PO QDAY #30 tablet 11/20/18 01/12/19 01/11/19 Rx Triamter/Hctz 37.5-25 mg 2 each PO QAM tablet 11/20/18 01/12/19 01/11/19 Rx [Maxzide-25] hydrALAZINE [Apresoline TAB] 100 mg PO BID #60 tab 11/20/18 01/12/19 Unknown Rx traMADol [Ultram 50 MG tab] 50 mg PO Q12HR PRN #10 tablet 11/20/18 01/12/19 Unknown Rx traZODone [Desyrel] 100 mg PO QHS #30 tablet 11/20/18 01/12/19 Unknown Rx AtorvaSTATin [Lipitor] 80 mg PO QHS #30 tablet 12/26/18 01/12/19 Unknown Rx Gabapentin 400 mg PO Q8HR #20 cap 12/26/18 01/12/19 01/11/19 Rx Insulin Aspart Prot/Aspart(Nf) 10 units SQ QAM #300 units 12/26/18 01/12/19 01/11/19 Rx [NovoLOG Mix 70/30 VIAL] Triamterene/Hydrochlorothiazid 1 each PO QDAY #30 tablet 12/26/18 01/12/19 01/11/19 Rx [Triamterene-Hctz 75-50 mg Tab] amLODIPine 10 mg PO DAILY #30 tablet 12/26/18 01/12/19 01/11/19 Rx Active Medications: Generic Name Dose Route Start Last Admin Trade Name Freq PRN Reason Stop Dose Admin Acetaminophen 650 mg 01/12/19 00:49 01/13/19 09:47 Tylenol PO 650 mg Q4H PRN Administration Pain MILD(1-3)/Fever >100.5/[place] Amlodipine Besylate 10 mg 01/16/19 10:00 Amlodipine PO DAILY [facility] Atorvastatin Calcium 80 mg 01/12/19 22:00 01/15/19 22:18 Lipitor PO 80 mg QHS [facility] Administration Dextrose 50 ml 01/12/19 01:54 D50w (25gm) Syringe IV Q30MIN PRN Hypoglycemia Enoxaparin Sodium 30 mg 01/12/19 10:00 01/15/19 10:09 Lovenox SUB-Q 30 mg QDAY [facility] Administration Furosemide 20 mg 01/12/19 10:00 01/15/19 10:09 Lasix PO 20 mg QDAY [facility] Administration Gabapentin 400 mg 01/12/19 14:00 01/16/19 05:35 Neurontin PO 400 mg Q8HR [facility] Administration Hydralazine HCl 10 mg 01/15/19 22:22 Apresoline IV Q4HR PRN Blood Pressure Sodium Chloride 100 mls @ 999 mls/hr 01/14/19 10:00 Nacl 0.9% IV ERNESTINA PRN Hypotension Sodium Chloride 100 mls @ 999 mls/hr 01/15/19 11:42 Nacl 0.9% IV ERNESTINA PRN Hypotension Insulin Human Regular 0 units 01/12/19 03:00 01/16/19 07:20 Humulin R SUB-Q Not Given ACHS [facility] Protocol Ondansetron HCl 4 mg 01/12/19 00:49 Zofran IV Q8H PRN Nausea And Vomiting Sodium Chloride 10 ml 01/12/19 10:00 01/15/19 22:18 Sodium Chloride Flush Syringe 10 Ml IV 10 ml BID LUCA Administration Sodium Chloride 10 ml 01/12/19 00:49 Sodium Chloride Flush Syringe 10 Ml IV PRN PRN LINE FLUSH Trazodone HCl 100 mg 01/16/19 22:00 Desyrel PO QHS [facility]
[2019-01-16] MEDS: FUROSEMIDE 20 MG TAB PO SCH (09:39)
[2019-01-16] MEDS: amLODIPine 10 MG TAB PO SCH (09:39)
[2019-01-16] MEDS: ENOXAPARIN 30 MG/0.3 ML INJ SUB-Q SCH (09:39)
[2019-01-16] MEDS: traZODone 100 MG TAB PO SCH (22:04)
[2019-01-17] MEDS: GABAPENTIN 400 MG CAP PO SCH ×3 (06:28→22:30)
--- NOTE | 2019-01-17 08:08 | Progress Note ---
Assessment and Plan Assessment and plan: Patient is a 58-year-old history of CHF, hypertension, diabetes, GERD, depression, hyperlipidemia comes emergency room with complaints of worsening swelling of leg is now unable to walk and also complain of decreased urine output. She has urinated once a day. She was seen here in the emergency room on 2 previous occasions and was discharged home. Primary care physician who sent her here to the emergency room for admission and complaining of mild shortness of breath. On last admission she had nephrotic range proteinuria, and was advised to obtain biopsy and follow-up with renal as an outpatient but she never did. She found to be hypothermic in the emergency room. * pCXR Impression: Minimal right pleural effusion Acute on chronic kidney disease ckd 5, suspect nephrotic syndrome to ESRD: Nephrology following, HD started Hemodialysis to start 01/13/19, Vas cath placed on 01/12/19 Abnormal cardiac enzyme, chronically elevated Hypothermia resolved: continue to monitor CHF, stable Hypotension, relative: stable Diabetes mellitus type 2: ssi, ada GERD: ppi Depression Hyperlipidemia d/w Nephrology DVT ppx on sq lovenox Disposition: await outpatient HD setup History Interval history: Patient was seen and examined. Follow-up on current diagnosis. No overnight events reported to me. Patient denies any chest pain, shortness breath, nausea/vomiting or severe headaches. Imaging, nursing note, chart, labs and old chart reviewed. Discussed with patient. Hospitalist Physical - Physical exam Narrative exam: Gen: WDWN, NAD, Awake, Alert, Orientated HEENT: NCAT, EOMI, PERRL, OP Clear Neck: supple, no adenopathy, no thyromegaly, no JVD CVS/Heart: RRR, normal S1S2, pulses present bilaterally Chest/Lungs: CTA B, Symmetrical chest expansion, good air entry bilaterally GI/Abdomen: soft, NTND, good bowel sounds, no guarding or rebound /Bladder: no suprapubic tenderness, no CVA or paraspinal tenderness Extermity/Skin: +ble edema, no obvious rash MSK: FROM x 4 Neuro: CN 2-12 grossly intact, no new focal deficits Psych: calm - Constitutional Vitals: Temp Pulse Resp BP Pulse Ox 98.1 F 95 H 18 150/73 95 01/17/19 07:55 01/17/19 07:55 01/17/19 07:55 01/17/19 07:55 01/17/19 07:55 General appearance: Present: no acute distress Results - Labs CBC & Chem 7: 01/12/19 04:00 01/15/19 07:04 Labs: Laboratory Last Values WBC 7.3 K/mm3 (4.5-11.0) 01/12/19 04:00 RBC 4.06 M/mm3 (3.65-5.03) 01/12/19 04:00 Hgb 10.5 gm/dl (10.1-14.3) 01/12/19 04:00 Hct 32.2 % (30.3-42.9) 01/12/19 04:00 MCV 79 fl (79-97) 01/12/19 04:00 MCH 26 pg (28-32) L 01/12/19 04:00 MCHC 33 % (30-34) 01/12/19 04:00 RDW 14.7 % (13.2-15.2) 01/12/19 04:00 Plt Count 418 K/mm3 (140-440) 01/12/19 04:00 Lymph % (Auto) 21.4 % (13.4-35.0) 01/12/19 04:00 [place] % (Auto) 2.7 % (0.0-7.3) 01/12/19 04:00 Eos % (Auto) 0.2 % (0.0-4.3) 01/12/19 04:00 Baso % (Auto) 0.2 % (0.0-1.8) 01/12/19 04:00 Lymph # 1.6 K/mm3 (1.2-5.4) 01/12/19 04:00 [place] # 0.2 K/mm3 (0.0-0.8) 01/12/19 04:00 Eos # 0.0 K/mm3 (0.0-0.4) 01/12/19 04:00 Baso # 0.0 K/mm3 (0.0-0.1) 01/12/19 04:00 Seg Neutrophils % 75.5 % (40.0-70.0) H 01/12/19 04:00 Seg Neutrophils # 5.5 K/mm3 (1.8-7.7) 01/12/19 04:00 Sodium 137 mmol/L (137-145) 01/15/19 07:04 Potassium 3.5 mmol/L (3.6-5.0) L D 01/15/19 07:04 Chloride 101.6 mmol/L (98-107) 01/15/19 07:04 Carbon Dioxide 22 mmol/L (22-30) 01/15/19 07:04 Anion Gap 17 mmol/L 01/15/19 07:04 BUN 31 mg/dL (7-17) H 01/15/19 07:04 Creatinine 2.6 mg/dL (0.7-1.2) H 01/15/19 07:04 Estimated GFR 23 ml/min 01/15/19 07:04 BUN/Creatinine Ratio 12 % 01/15/19 07:04 Glucose 167 mg/dL (65-100) H 01/15/19 07:04 POC Glucose 292 (70-105) H 01/16/19 22:12 Calcium 7.2 mg/dL (8.4-10.2) L 01/15/19 07:04 Total Creatine Kinase 1258 units/L (30-135) H 01/11/19 23:32 Troponin T 0.136 ng/mL (0.00-0.029) H* 01/11/19 23:32 NT-Pro-B Natriuret Pep 5277 pg/mL (0-900) H 01/11/19 17:42 TSH 4.780 mlU/mL (0.270-4.200) H 01/11/19 23:32 Free T4 0.99 ng/dL (0.76-1.46) 01/11/19 23:32 Total Cortisol 32.2 mcg/dL () 01/11/19 23:32 Hepatitis A IgM Ab Non-reactive (NonReactive) 01/13/19 12:28 Hep Bs Antigen Non-reactive (Negative) 01/13/19 12:28 Hep B Core IgM Ab Non-reactive (NonReactive) 01/13/19 12:28 Hepatitis C Antibody Non-reactive (NonReactive) 01/13/19 12:28 Active Medications - Current Medications Current Medications: Generic Name Dose Route Start Last Admin Trade Name Freq PRN Reason Stop Dose Admin Acetaminophen 650 mg 01/12/19 00:49 01/13/19 09:47 Tylenol PO 650 mg Q4H PRN Administration Pain MILD(1-3)/Fever >100.5/[place] Amlodipine Besylate 10 mg 01/16/19 10:00 01/16/19 09:39 Amlodipine PO 10 mg DAILY LUAC Administration Atorvastatin Calcium 80 mg 01/12/19 22:00 01/16/19 22:04 Lipitor PO 80 mg QHS LUCA Administration Dextrose 50 ml 01/12/19 01:54 D50w (25gm) Syringe IV Q30MIN PRN Hypoglycemia Enoxaparin Sodium 30 mg 01/12/19 10:00 01/16/19 09:39 Lovenox SUB-Q 30 mg QDAY LUCA Administration Furosemide 20 mg 01/12/19 10:00 01/16/19 09:39 Lasix PO 20 mg QDAY LUCA Administration Gabapentin 400 mg 01/12/19 14:00 01/17/19 06:28 Neurontin PO 400 mg Q8HR LUCA Administration Hydralazine HCl 10 mg 01/15/19 22:22 Apresoline IV Q4HR PRN Blood Pressure Sodium Chloride 100 mls @ 999 mls/hr 01/14/19 10:00 Nacl 0.9% IV ERNESTINA PRN Hypotension Sodium Chloride 100 mls @ 999 mls/hr 01/15/19 11:42 Nacl 0.9% IV ERNESTINA PRN Hypotension Insulin Human Regular 0 units 01/12/19 03:00 01/16/19 22:05 Humulin R SUB-Q 4 units ACHS LUCA Administration Protocol Ondansetron HCl 4 mg 01/12/19 00:49 Zofran IV Q8H PRN Nausea And Vomiting Sodium Chloride 10 ml 01/12/19 10:00 01/16/19 22:04 Sodium Chloride Flush Syringe 10 Ml IV 10 ml BID LUCA Administration Sodium Chloride 10 ml 01/12/19 00:49 Sodium Chloride Flush Syringe 10 Ml IV PRN PRN LINE FLUSH Trazodone HCl 100 mg 01/16/19 22:00 01/16/19 22:04 Desyrel PO 100 mg QHS LUCA Administration Nutrition/Malnutrition Assess - Dietary Evaluation Nutrition/Malnutrition Findings: Nutrition Notes Start: 01/12/19 10:30 Freq: Status: Active Protocol: Document 01/14/19 15:31 RM (Rec: 01/14/19 15:36 RM [id number]) Nutrition Notes Initial or Follow up Reassessment Current Diagnosis Acute Kidney Injury,Diabetes, Hypertension,Heart Failure, Hyperlipidemia Other Pertinent Diagnosis GERD, LE edema over past month over past month Current Diet Renal Labs/Tests Reviewed Pertinent Medications Lasix Height 5 ft Weight 70.2 kg [place] Body Weight (kg) 45.45 BMI 30.2 Weight change and time frame [facility] Previous wt in record likely d/t human error. Subjective/Other Information Pt stated that her appetite is improving. Noted lunch at bedside w/75% eaten. Pt stated that is the best she has eaten since admission. Denied N/V. Percent of energy/protein needs met: 100%/100% Burn Absent Trauma Absent Minimum of two criteria Yes Energy Intake (non-severe) <75% Estimated Energy Requirement >7 days Fluid Accumulation Mild (non-severe) #1 Nutrition Diagnosis Malnutrition Diagnosis Progress(for reassessment Continues documentation) Is patient on ventilator? No Is Patient Ambulatory and/or Out of Bed No REE-([place]-St. Jeor-confined to bed) 1460.736 Calculation Used for Recommendations [place]-St Jeor Additional Notes PRO: 71-85g/day (1.0-1.2g/kg) for NOLBERTO and malnutrition Fluid: per MD Nutrition Intervention Change Diet Order: Continue current Goal #1 Continue to meet at least 75% energy and protein needs Anticipated Discharge Needs: Renal diet Follow-Up By: 01/17/19 Additional Comments Follow for stable intakes
[2019-01-17] MEDS ORDERED: SODIUM CHLORIDE*PRIMING MACHINE ONLY FOR DIALYSIS MC ONE (11:04)
[2019-01-17] MEDS: INSULIN REGULAR, HUMAN 100 UNITS/1 ML SUB-Q SCH ×2 (15:59→19:53)
[2019-01-17] MEDS: ENOXAPARIN 30 MG/0.3 ML INJ SUB-Q SCH (16:15)
[2019-01-17] MEDS: amLODIPine 10 MG TAB PO SCH (16:16)
[2019-01-17] MEDS: FUROSEMIDE 20 MG TAB PO SCH (16:16)
[2019-01-17] MEDS: traZODone 100 MG TAB PO SCH (22:30)
--- NOTE | 2019-01-17 22:46 | Progress Note ---
Assessment and Plan - Patient Problems (1) ESRD (end stage renal disease) Current Visit: Yes Status: Chronic Plan to address problem: Now with progression to ESRD Continue on MWF inpatient HD schedule. (2) Hyponatremia Current Visit: Yes Status: Acute Plan to address problem: Likely in the setting of volume overload. (3) Diabetes mellitus Current Visit: Yes Status: Chronic Qualifiers: Diabetes mellitus type: type 2 Plan to address problem: DM management per primary attending. (4) HTN (hypertension) Current Visit: Yes Status: Chronic Plan to address problem: Monitor on current anti-hypertenisve regimen (5) Anemia in chronic illness Current Visit: Yes Status: Acute Plan to address problem: No acute needs for ALBERTO therapy. Will assess for ALBERTO needs as an outpatient. Subjective Date of service: 01/17/19 Principal diagnosis: CKD Interval history: No acute changes overnight. Patient seen earlier this am. Objective - Vital Signs Vital signs: Vital Signs - 12hr 01/17/19 01/17/19 01/17/19 10:45 11:00 11:15 Temperature Pulse Rate 88 98 H 92 H Respiratory Rate Blood Pressure 146/68 138/73 143/80 O2 Sat by Pulse Oximetry 01/17/19 01/17/19 01/17/19 11:30 11:45 12:00 Temperature Pulse Rate 84 85 85 Respiratory Rate Blood Pressure 135/75 130/66 106/66 O2 Sat by Pulse Oximetry 01/17/19 01/17/19 01/17/19 12:15 12:30 12:45 Temperature Pulse Rate 83 83 80 Respiratory Rate Blood Pressure 134/70 147/75 130/68 O2 Sat by Pulse Oximetry 01/17/19 01/17/19 01/17/19 13:00 13:15 13:30 Temperature 98.3 F Pulse Rate 82 79 83 Respiratory 16 Rate Blood Pressure 143/74 126/65 157/77 O2 Sat by Pulse Oximetry 01/17/19 01/17/19 01/17/19 16:16 16:58 20:00 Temperature 98.6 F Pulse Rate 83 94 H 93 H Respiratory 18 16 Rate Blood Pressure 157/77 146/67 143/68 O2 Sat by Pulse 100 100 Oximetry 01/17/19 20:51 Temperature 99.1 F Pulse Rate Respiratory Rate Blood Pressure O2 Sat by Pulse Oximetry - General Appearance General appearance: well-developed, well-nourished, appears stated age EENT: ATNC, PERRL Neck: no JVD, no thyromegaly Respiratory: Present: Clear to Ascultation Cardiology: regular, normal heart rate Gastrointestinal: normal, normoactive bowel sounds Integumentary: no rash, warm and dry Neurologic: no focal deficit, no asterixis, alert and oriented x3 Musculoskeletal: deferred Psychiatric: mood/affect appropriate, cooperative - Lab 01/12/19 04:00 01/15/19 07:04 Most recent lab results Calcium 7.2 mg/dL (8.4-10.2) L 01/15/19 07:04 Medications & Allergies - Medications Allergies/Adverse Reactions: Allergies Penicillins Allergy (Verified 10/30/18 11:25) Unknown Sulfa (Sulfonamide Antibiotics) Allergy (Verified 10/30/18 11:25) Unknown Home Medications: Home Medications Medication Instructions Recorded Confirmed Last Taken Type Furosemide [Lasix TAB] 40 mg PO DAILY@0600 #30 tablet 11/20/18 01/12/19 Unknown Rx Gabapentin 400 mg PO TID capsule 11/20/18 01/12/19 01/11/19 Rx Lisinopril [Zestril TAB] 5 mg PO QDAY #30 tablet 11/20/18 01/12/19 01/11/19 Rx Metoprolol [Lopressor TAB] 100 mg PO QDAY #30 tablet 11/20/18 01/12/19 01/11/19 Rx Triamter/Hctz 37.5-25 mg 2 each PO QAM tablet 11/20/18 01/12/19 01/11/19 Rx [Maxzide-25] hydrALAZINE [Apresoline TAB] 100 mg PO BID #60 tab 11/20/18 01/12/19 Unknown Rx traMADol [Ultram 50 MG tab] 50 mg PO Q12HR PRN #10 tablet 11/20/18 01/12/19 Unknown Rx traZODone [Desyrel] 100 mg PO QHS #30 tablet 11/20/18 01/12/19 Unknown Rx AtorvaSTATin [Lipitor] 80 mg PO QHS #30 tablet 12/26/18 01/12/19 Unknown Rx Gabapentin 400 mg PO Q8HR #20 cap 12/26/18 01/12/19 01/11/19 Rx Insulin Aspart Prot/Aspart(Nf) 10 units SQ QAM #300 units 12/26/18 01/12/19 01/11/19 Rx [NovoLOG Mix 70/30 VIAL] Triamterene/Hydrochlorothiazid 1 each PO QDAY #30 tablet 12/26/18 01/12/19 01/11/19 Rx [Triamterene-Hctz 75-50 mg Tab] amLODIPine 10 mg PO DAILY #30 tablet 12/26/18 01/12/19 01/11/19 Rx Active Medications: Generic Name Dose Route Start Last Admin Trade Name Freq PRN Reason Stop Dose Admin Acetaminophen 650 mg 01/12/19 00:49 01/13/19 09:47 Tylenol PO 650 mg Q4H PRN Administration Pain MILD(1-3)/Fever >100.5/[place] Amlodipine Besylate 10 mg 01/16/19 10:00 01/17/19 16:16 Amlodipine PO 10 mg DAILY LUCA Administration Atorvastatin Calcium 80 mg 01/12/19 22:00 01/17/19 22:30 Lipitor PO 80 mg QHS LUCA Administration Dextrose 50 ml 01/12/19 01:54 D50w (25gm) Syringe IV Q30MIN PRN Hypoglycemia Enoxaparin Sodium 30 mg 01/12/19 10:00 01/17/19 16:15 Lovenox SUB-Q 30 mg QDAY LUCA Administration Furosemide 20 mg 01/12/19 10:00 01/17/19 16:16 Lasix PO 20 mg QDAY LUCA Administration Gabapentin 400 mg 01/12/19 14:00 01/17/19 22:30 Neurontin PO 400 mg Q8HR LUCA Administration Hydralazine HCl 10 mg 01/15/19 22:22 Apresoline IV Q4HR PRN Blood Pressure Sodium Chloride 100 mls @ 999 mls/hr 01/15/19 11:42 Nacl 0.9% IV ERNESTINA PRN Hypotension Insulin Human Regular 0 units 01/12/19 03:00 01/17/19 19:53 Humulin R SUB-Q 6 units ACHS LUCA Administration Protocol Ondansetron HCl 4 mg 01/12/19 00:49 Zofran IV Q8H PRN Nausea And Vomiting Sodium Chloride 10 ml 01/12/19 10:00 01/17/19 22:34 Sodium Chloride Flush Syringe 10 Ml IV 10 ml BID LUCA Administration Sodium Chloride 10 ml 01/12/19 00:49 Sodium Chloride Flush Syringe 10 Ml IV PRN PRN LINE FLUSH Trazodone HCl 100 mg 01/16/19 22:00 01/17/19 22:30 Desyrel PO 100 mg QHS LUCA Administration
[2019-01-18] MEDS: INSULIN REGULAR, HUMAN 100 UNITS/1 ML SUB-Q SCH ×5 (00:20→22:47)
[2019-01-18] MEDS: GABAPENTIN 400 MG CAP PO SCH ×3 (05:27→22:47)
--- NOTE | 2019-01-18 10:01 | Progress Note ---
Assessment and Plan Assessment and plan: Patient is a 58-year-old history of CHF, hypertension, diabetes, GERD, depression, hyperlipidemia comes emergency room with complaints of worsening swelling of leg is now unable to walk and also complain of decreased urine output. She has urinated once a day. She was seen here in the emergency room on 2 previous occasions and was discharged home. Primary care physician who sent her here to the emergency room for admission and complaining of mild shortness of breath. On last admission she had nephrotic range proteinuria, and was advised to obtain biopsy and follow-up with renal as an outpatient but she never did. She found to be hypothermic in the emergency room. * pCXR Impression: Minimal right pleural effusion Acute on chronic kidney disease ckd 5, suspect nephrotic syndrome to ESRD: Nephrology following, started HD since 01/13/19, Vas cath placed on 01/12/19 Abnormal cardiac enzyme, chronically elevated Hypothermia resolved: continue to monitor CHF, stable Hypotension, relative: stable Diabetes mellitus type 2: ssi, ada GERD: ppi Depression Hyperlipidemia d/w Nephrology DVT ppx on sq lovenox Disposition: await outpatient HD setup History Interval history: Review of systems Constitutional: No fevers, no malaise, no joint pains CVS: No chest pain, no orthopnea, no pedal edema GI: No abdominal pain, no diarrhea, no vomiting, no constipation Respiratory: No shortness of breath, no wheezing, no coughing Hospitalist Physical - Physical exam Narrative exam: General.: Appears well, no distress, nontoxic HEENT: Moist mucous membranes, extraocular muscles intact, no lymphadenopathy Neck: supple Cardiac: S1-S2 heard Lungs: clear to auscultation bilaterally Abdomen: soft , nontender, nondistended, bowel sounds positive Extremities: no edema clubbing or cyanosis Skin: no rash or lesions Neurologic: no gross focal deficits Psych: calm, and cooperative - Constitutional Vitals: Temp Pulse Resp BP Pulse Ox 98.6 F 89 18 139/68 99 01/18/19 05:24 01/18/19 04:17 01/18/19 04:17 01/18/19 04:17 01/18/19 04:17 General appearance: Present: no acute distress Results - Labs CBC & Chem 7: 01/12/19 04:00 01/15/19 07:04 Labs: Laboratory Last Values WBC 7.3 K/mm3 (4.5-11.0) 01/12/19 04:00 RBC 4.06 M/mm3 (3.65-5.03) 01/12/19 04:00 Hgb 10.5 gm/dl (10.1-14.3) 01/12/19 04:00 Hct 32.2 % (30.3-42.9) 01/12/19 04:00 MCV 79 fl (79-97) 01/12/19 04:00 MCH 26 pg (28-32) L 01/12/19 04:00 MCHC 33 % (30-34) 01/12/19 04:00 RDW 14.7 % (13.2-15.2) 01/12/19 04:00 Plt Count 418 K/mm3 (140-440) 01/12/19 04:00 Lymph % (Auto) 21.4 % (13.4-35.0) 01/12/19 04:00 [place] % (Auto) 2.7 % (0.0-7.3) 01/12/19 04:00 Eos % (Auto) 0.2 % (0.0-4.3) 01/12/19 04:00 Baso % (Auto) 0.2 % (0.0-1.8) 01/12/19 04:00 Lymph # 1.6 K/mm3 (1.2-5.4) 01/12/19 04:00 [place] # 0.2 K/mm3 (0.0-0.8) 01/12/19 04:00 Eos # 0.0 K/mm3 (0.0-0.4) 01/12/19 04:00 Baso # 0.0 K/mm3 (0.0-0.1) 01/12/19 04:00 Seg Neutrophils % 75.5 % (40.0-70.0) H 01/12/19 04:00 Seg Neutrophils # 5.5 K/mm3 (1.8-7.7) 01/12/19 04:00 Sodium 137 mmol/L (137-145) 01/15/19 07:04 Potassium 3.5 mmol/L (3.6-5.0) L D 01/15/19 07:04 Chloride 101.6 mmol/L (98-107) 01/15/19 07:04 Carbon Dioxide 22 mmol/L (22-30) 01/15/19 07:04 Anion Gap 17 mmol/L 01/15/19 07:04 BUN 31 mg/dL (7-17) H 01/15/19 07:04 Creatinine 2.6 mg/dL (0.7-1.2) H 01/15/19 07:04 Estimated GFR 23 ml/min 01/15/19 07:04 BUN/Creatinine Ratio 12 % 01/15/19 07:04 Glucose 167 mg/dL (65-100) H 01/15/19 07:04 POC Glucose 183 (70-105) H 01/18/19 07:43 Calcium 7.2 mg/dL (8.4-10.2) L 01/15/19 07:04 Total Creatine Kinase 1258 units/L (30-135) H 01/11/19 23:32 Troponin T 0.136 ng/mL (0.00-0.029) H* 01/11/19 23:32 NT-Pro-B Natriuret Pep 5277 pg/mL (0-900) H 01/11/19 17:42 TSH 4.780 mlU/mL (0.270-4.200) H 01/11/19 23:32 Free T4 0.99 ng/dL (0.76-1.46) 01/11/19 23:32 Total Cortisol 32.2 mcg/dL () 01/11/19 23:32 Hepatitis A IgM Ab Non-reactive (NonReactive) 01/13/19 12:28 Hep Bs Antigen Non-reactive (Negative) 01/13/19 12:28 Hep B Core IgM Ab Non-reactive (NonReactive) 01/13/19 12:28 Hepatitis C Antibody Non-reactive (NonReactive) 01/13/19 12:28 Active Medications - Current Medications Current Medications: Generic Name Dose Route Start Last Admin Trade Name Freq PRN Reason Stop Dose Admin Acetaminophen 650 mg 01/12/19 00:49 01/13/19 09:47 Tylenol PO 650 mg Q4H PRN Administration Pain MILD(1-3)/Fever >100.5/[place] Amlodipine Besylate 10 mg 01/16/19 10:00 01/17/19 16:16 Amlodipine PO 10 mg DAILY LUCA Administration Atorvastatin Calcium 80 mg 01/12/19 22:00 01/17/19 22:30 Lipitor PO 80 mg QHS LUCA Administration Dextrose 50 ml 01/12/19 01:54 D50w (25gm) Syringe IV Q30MIN PRN Hypoglycemia Enoxaparin Sodium 30 mg 01/12/19 10:00 01/17/19 16:15 Lovenox SUB-Q 30 mg QDAY LUCA Administration Furosemide 20 mg 01/12/19 10:00 01/17/19 16:16 Lasix PO 20 mg QDAY LUCA Administration Gabapentin 400 mg 01/12/19 14:00 01/18/19 05:27 Neurontin PO 400 mg Q8HR LUCA Administration Hydralazine HCl 10 mg 01/15/19 22:22 Apresoline IV Q4HR PRN Blood Pressure Sodium Chloride 100 mls @ 999 mls/hr 01/15/19 11:42 Nacl 0.9% IV ERNESTINA PRN Hypotension Insulin Human Regular 0 units 01/12/19 03:00 01/18/19 08:36 Humulin R SUB-Q 2 units ACHS LUCA Administration Protocol Ondansetron HCl 4 mg 01/12/19 00:49 Zofran IV Q8H PRN Nausea And Vomiting Sodium Chloride 10 ml 01/12/19 10:00 01/17/19 22:34 Sodium Chloride Flush Syringe 10 Ml IV 10 ml BID LUCA Administration Sodium Chloride 10 ml 01/12/19 00:49 Sodium Chloride Flush Syringe 10 Ml IV PRN PRN LINE FLUSH Trazodone HCl 100 mg 01/16/19 22:00 01/17/19 22:30 Desyrel PO 100 mg QHS LUCA Administration Nutrition/Malnutrition Assess - Dietary Evaluation Nutrition/Malnutrition Findings: Nutrition Notes Start: 01/12/19 1 0:30 Freq: Status: Active Protocol: Document 01/17/19 15:27 [place] (Rec: 01/17/19 15:35 OH [id number]) Nutrition Notes Initial or Follow up Reassessment Current Diagnosis Acute Kidney Injury,Diabetes, Hypertension,Heart Failure, Hyperlipidemia Other Pertinent Diagnosis GERD, LE edema over past month over past month Current Diet Renal Labs/Tests Reviewed Pertinent Medications Lasix Height 5 ft Weight 69.7 kg [place] Body Weight (kg) 45.45 BMI 29.9 Weight change and time frame Wt noted to be trending downward x5 days. Pt. probably getting closer to TW through consistent dialysis. Subjective/Other Information Pt. eating lunch meal after completing dialysis. Pt provided stage 5 renal diet recommendations. Per pt, "I can't eat anything." Discussed w/pt high vs low K+ foods. Percent of energy/protein needs met: 100/100 Burn Absent Trauma Absent Minimum of two criteria Yes #2 Nutrition Diagnosis Food and nutrition-related knowledge deficit Etiology newly diagnosed ESRD As Evidenced by Signs and Symptoms Questions raised regarding K+/ p04/fluid/ca recommendations for dialysis patients Diagnosis Progress(for reassessment Continues documentation) #1 Nutrition Diagnosis Malnutrition Is patient on ventilator? No Is Patient Ambulatory and/or Out of Bed No REE-([place]-St. Jeor-confined to bed) 2524.361 Calculation Used for Recommendations [place]-St Jeor Additional Notes PRO: 71-85g/day (1.0-1.2g/kg) for NOLBERTO and malnutrition Fluid: 1 L/day Nutrition Intervention Change Diet Order: Renal diet Teaching Recipient Patient Learning Readiness Fair Teaching Methods Discussion,Handout Response to Teaching Verbalize understanding, Reinforcement needed Education Handouts Provided Pt provided CKD 5 handout regarding dietary recommendations. Chief Yeoman reviewed high K+/p04/ca foods with pt. Reinforced w/pt the importance of limiting processed foods especially fast food/eating out. Pt. reports she has family that assists in her care. Discussed w/pt she would be attending [facility] 3 d/wk for 2.5-3.5 hours. Educated pt about 32 oz daily fluid restriction and reasoning behind recommendation. Enc pt to ask questions of RD/[employer]OWER upon start with [facility]. Barriers to Learning Cognitive/Verbal,Motivation, Physical,Age related,Emotional ,Financial,Environmental Goal #1 Continue to meet at least 75% energy and protein needs Anticipated Discharge Needs: Renal diet Follow-Up By: 01/20/19 Additional Comments Follow for stable intakes/ renal dietary questions
[2019-01-18] MEDS: ENOXAPARIN 30 MG/0.3 ML INJ SUB-Q SCH (10:59)
[2019-01-18] MEDS: FUROSEMIDE 20 MG TAB PO SCH (10:59)
[2019-01-18] MEDS: amLODIPine 10 MG TAB PO SCH (10:59)
[2019-01-18] MEDS: traZODone 100 MG TAB PO SCH (22:47)
[2019-01-19] MEDS ORDERED: SENNOSIDES 8.6 MG TAB PO PRN (05:44)
[2019-01-19] MEDS: GABAPENTIN 400 MG CAP PO SCH ×2 (06:07→13:57)
[2019-01-19] MEDS: INSULIN REGULAR, HUMAN 100 UNITS/1 ML SUB-Q SCH ×5 (08:30→18:25)
--- NOTE | 2019-01-19 10:12 | Progress Note ---
Hospitalist Physical - Constitutional Vitals: Temp Pulse Resp BP Pulse Ox 98.3 F 85 18 147/76 100 01/19/19 09:05 01/19/19 09:05 01/19/19 09:05 01/19/19 09:05 01/19/19 04:14 General appearance: Present: no acute distress Results - Labs CBC & Chem 7: 01/12/19 04:00 01/15/19 07:04 Labs: Laboratory Last Values WBC 7.3 K/mm3 (4.5-11.0) 01/12/19 04:00 RBC 4.06 M/mm3 (3.65-5.03) 01/12/19 04:00 Hgb 10.5 gm/dl (10.1-14.3) 01/12/19 04:00 Hct 32.2 % (30.3-42.9) 01/12/19 04:00 MCV 79 fl (79-97) 01/12/19 04:00 MCH 26 pg (28-32) L 01/12/19 04:00 MCHC 33 % (30-34) 01/12/19 04:00 RDW 14.7 % (13.2-15.2) 01/12/19 04:00 Plt Count 418 K/mm3 (140-440) 01/12/19 04:00 Lymph % (Auto) 21.4 % (13.4-35.0) 01/12/19 04:00 [place] % (Auto) 2.7 % (0.0-7.3) 01/12/19 04:00 Eos % (Auto) 0.2 % (0.0-4.3) 01/12/19 04:00 Baso % (Auto) 0.2 % (0.0-1.8) 01/12/19 04:00 Lymph # 1.6 K/mm3 (1.2-5.4) 01/12/19 04:00 [place] # 0.2 K/mm3 (0.0-0.8) 01/12/19 04:00 Eos # 0.0 K/mm3 (0.0-0.4) 01/12/19 04:00 Baso # 0.0 K/mm3 (0.0-0.1) 01/12/19 04:00 Seg Neutrophils % 75.5 % (40.0-70.0) H 01/12/19 04:00 Seg Neutrophils # 5.5 K/mm3 (1.8-7.7) 01/12/19 04:00 Sodium 137 mmol/L (137-145) 01/15/19 07:04 Potassium 3.5 mmol/L (3.6-5.0) L D 01/15/19 07:04 Chloride 101.6 mmol/L (98-107) 01/15/19 07:04 Carbon Dioxide 22 mmol/L (22-30) 01/15/19 07:04 Anion Gap 17 mmol/L 01/15/19 07:04 BUN 31 mg/dL (7-17) H 01/15/19 07:04 Creatinine 2.6 mg/dL (0.7-1.2) H 01/15/19 07:04 Estimated GFR 23 ml/min 01/15/19 07:04 BUN/Creatinine Ratio 12 % 01/15/19 07:04 Glucose 167 mg/dL (65-100) H 01/15/19 07:04 POC Glucose 109 (70-105) H 01/19/19 07:40 Calcium 7.2 mg/dL (8.4-10.2) L 01/15/19 07:04 Total Creatine Kinase 1258 units/L (30-135) H 01/11/19 23:32 Troponin T 0.136 ng/mL (0.00-0.029) H* 01/11/19 23:32 NT-Pro-B Natriuret Pep 5277 pg/mL (0-900) H 01/11/19 17:42 TSH 4.780 mlU/mL (0.270-4.200) H 01/11/19 23:32 Free T4 0.99 ng/dL (0.76-1.46) 01/11/19 23:32 Total Cortisol 32.2 mcg/dL () 01/11/19 23:32 Hepatitis A IgM Ab Non-reactive (NonReactive) 01/13/19 12:28 Hep Bs Antigen Non-reactive (Negative) 01/13/19 12:28 Hep B Core IgM Ab Non-reactive (NonReactive) 01/13/19 12:28 Hepatitis C Antibody Non-reactive (NonReactive) 01/13/19 12:28 Active Medications - Current Medications Current Medications: Generic Name Dose Route Start Last Admin Trade Name Freq PRN Reason Stop Dose Admin Acetaminophen 650 mg 01/12/19 00:49 01/13/19 09:47 Tylenol PO 650 mg Q4H PRN Administration Pain MILD(1-3)/Fever >100.5/[place] Amlodipine Besylate 10 mg 01/16/19 10:00 01/18/19 10:59 Amlodipine PO 10 mg DAILY LUCA Administration Atorvastatin Calcium 80 mg 01/12/19 22:00 01/18/19 22:47 Lipitor PO 80 mg QHS LUCA Administration Dextrose 50 ml 01/12/19 01:54 D50w (25gm) Syringe IV Q30MIN PRN Hypoglycemia Enoxaparin Sodium 30 mg 01/12/19 10:00 01/18/19 10:59 Lovenox SUB-Q 30 mg QDAY LUCA Administration Furosemide 20 mg 01/12/19 10:00 01/18/19 10:59 Lasix PO 20 mg QDAY LUCA Administration Gabapentin 400 mg 01/12/19 14:00 01/19/19 06:07 Neurontin PO 400 mg Q8HR LUCA Administration Hydralazine HCl 10 mg 01/15/19 22:22 Apresoline IV Q4HR PRN Blood Pressure Sodium Chloride 100 mls @ 999 mls/hr 01/15/19 11:42 Nacl 0.9% IV ERNESTINA PRN Hypotension Insulin Human Regular 0 units 01/12/19 03:00 01/18/19 22:47 Humulin R SUB-Q 4 units ACHS LUCA Administration Protocol Ondansetron HCl 4 mg 01/12/19 00:49 Zofran IV Q8H PRN Nausea And Vomiting Senna 17.2 mg 01/19/19 05:44 01/19/19 06:08 Senokot PO 17.2 mg QHS PRN Administration Constipation Sodium Chloride 10 ml 01/12/19 10:00 01/18/19 22:48 Sodium Chloride Flush Syringe 10 Ml IV 10 ml BID LUCA Administration Sodium Chloride 10 ml 01/12/19 00:49 Sodium Chloride Flush Syringe 10 Ml IV PRN PRN LINE FLUSH Trazodone HCl 100 mg 01/16/19 22:00 01/18/19 22:47 Desyrel PO 100 mg QHS LUCA Administration Nutrition/Malnutrition Assess - Dietary Evaluation Nutrition/Malnutrition Findings: Nutrition Notes Start: 01/12/19 10 :30 Freq: Status: Active Protocol: Document 01/17/19 15:27 [place] (Rec: 01/17/19 15:35 [place]-[id number]) Nutrition Notes Initial or Follow up Reassessment Current Diagnosis Acute Kidney Injury,Diabetes, Hypertension,Heart Failure, Hyperlipidemia Other Pertinent Diagnosis GERD, LE edema over past month over past month Current Diet Renal Labs/Tests Reviewed Pertinent Medications Lasix Height 5 ft Weight 69.7 kg [place] Body Weight (kg) 45.45 BMI 29.9 Weight change and time frame Wt noted to be trending downward x5 days. Pt. probably getting closer to TW through consistent dialysis. Subjective/Other Information Pt. eating lunch meal after completing dialysis. Pt provided stage 5 renal diet recommendations. Per pt, "I can't eat anything." Discussed w/pt high vs low K+ foods. Percent of energy/protein needs met: 100/100 Burn Absent Trauma Absent Minimum of two criteria Yes #2 Nutrition Diagnosis Food and nutrition-related knowledge deficit Etiology newly diagnosed ESRD As Evidenced by Signs and Symptoms Questions raised regarding K+/ p04/fluid/ca recommendations for dialysis patients Diagnosis Progress(for reassessment Continues documentation) #1 Nutrition Diagnosis Malnutrition Is patient on ventilator? No Is Patient Ambulatory and/or Out of Bed No REE-([place]-St. Jeor-confined to bed) 1454.736 Calculation Used for Recommendations [place]-St Jeor Additional Notes PRO: 71-85g/day (1.0-1.2g/kg) for NOLBERTO and malnutrition Fluid: 1 L/day Nutrition Intervention Change Diet Order: Renal diet Teaching Recipient Patient Learning Readiness Fair Teaching Methods Discussion,Handout Response to Teaching Verbalize understanding, Reinforcement needed Education Handouts Provided Pt provided CKD 5 handout regarding dietary recommendations. Operator Command Support Systems reviewed high K+/p04/ca foods with pt. Reinforced w/pt the importance of limiting processed foods especially fast food/eating out. Pt. reports she has family that assists in her care. Discussed w/pt she would be attending [facility] 3 d/wk for 2.5-3.5 hours. Educated pt about 32 oz daily fluid restriction and reasoning behind recommendation. Enc pt to ask questions of RD/SENIOR SALES COMPENSATION ANALYST upon start with [facility]. Barriers to Learning Cognitive/Verbal,Motivation, Physical,Age related,Emotional ,Financial,Environmental Goal #1 Continue to meet at least 75% energy and protein needs Anticipated Discharge Needs: Renal diet Follow-Up By: 01/20/19 Additional Comments Follow for stable intakes/ renal dietary questions
--- NOTE | 2019-01-19 11:15 | Discharge Summary ---
Providers - Providers Date of Admission: 01/11/19 23:39 Attending physician: ERROL GORDILLO MD 01/11/19 23:06 Consult to Physician [CONS] Urgent Comment: Consulting Provider: ETHEL GRAY Physician Instructions: Reason For Exam: acute on chronic renal failure 01/12/19 12:36 Consult to Interventional Radiology [CONS] Routine Consulting Provider: EDGAR SANDOVAL Reason For Exam: Permcath placement Place consult to:: Dr. Sandoval Notified:: Fortino BOYER Phone number called:: Was contact made?: Yes If yes, spoke with:: Nhi-office Time called:: 13:12 01/18/19 08:43 Occupational Therapy Evaluate and Treat [CONS] Routine Comment: Reason For Exam: gen weakness Physical Therapy Evaluation and Treat [CONS] Routine Comment: Reason For Exam: gen weakness Primary care physician: CHIEF ENGINEER [employer]ODUCTION Hospitalization Condition: Stable Hospital course: Patient is a 58-year-old history of CHF, hypertension, diabetes, GERD, depression, hyperlipidemia comes emergency room with complaints of worsening swelling of leg is now unable to walk and also complain of decreased urine output. She has urinated once a day. She was seen here in the emergency room on 2 previous occasions and was discharged home. Primary care physician who sent her here to the emergency room for admission and complaining of mild shortness of breath. On last admission she had nephrotic range proteinuria, and was advised to obtain biopsy and follow-up with renal as an outpatient but she never did. She found to be hypothermic in the emergency room. * pCXR Impression: Minimal right pleural effusion Acute on chronic kidney disease ckd 5, suspect nephrotic syndrome to ESRD: Nephrology following, started HD since 01/13/19, Vas cath placed on 01/12/19 Abnormal cardiac enzyme, chronically elevated Hypothermia resolved: continue to monitor CHF, stable Hypotension, relative: stable Diabetes mellitus type 2: ssi, ada GERD: ppi Depression Hyperlipidemia d/w Nephrology DVT ppx on sq lovenox dc home w renal FUP Disposition: DC-01 TO HOME OR SELFCARE Time spent for discharge: 33 mins Core Measure Documentation - Palliative Care Palliative Care/ Comfort Measures: Not Applicable - Core Measures Any of the following diagnoses?: none Exam - Constitutional Vitals: Temp Pulse Resp BP Pulse Ox 98.3 F 87 18 120/66 100 01/19/19 09:05 10/30/19 10:30 01/19/19 09:05 01/19/19 10:30 01/19/19 04:14 General appearance: Present: no acute distress, well-nourished - EENT Eyes: Present: PERRL ENT: hearing intact, clear oral mucosa - Neck Neck: Present: supple, normal ROM - Respiratory Respiratory effort: normal Respiratory: bilateral: CTA - Cardiovascular Heart Sounds: Present: S1 & S2. Absent: rub, click - Extremities Extremities: pulses symmetrical, No edema Peripheral Pulses: within normal limits - Abdominal General gastrointestinal: Present: soft, non-tender, non-distended, normal bowel sounds Female genitourinary: Present: normal - Integumentary Integumentary: Present: clear, warm, dry - Musculoskeletal Musculoskeletal: gait normal, strength equal bilaterally - Psychiatric Psychiatric: appropriate mood/affect, intact judgment & insight - Neurologic Neurologic: CNII-XII intact, moves all extremities Plan Follow up with: PRIMARY CARE,MD [Primary Care Provider] - 7 Days Prescriptions: traZODone [Desyrel] 100 mg PO QHS #30 tablet Sennosides Tab [Senokot] 17.2 mg PO QHS PRN #60 tablet PRN Reason: Constipation Insulin Regular, Human [HumuLIN R] 0 unit SQ AC #1 vial Furosemide [Lasix TAB] 20 mg PO QDAY #30 tablet
[2019-01-19] MEDS ORDERED: SODIUM CHLORIDE*PRIMING MACHINE ONLY FOR DIALYSIS MC ONE (11:56)
[2019-01-19 13:47] VITALS: BP 148/73
[2019-01-19] MEDS: ENOXAPARIN 30 MG/0.3 ML INJ SUB-Q SCH (13:57)
[2019-01-19] MEDS: FUROSEMIDE 20 MG TAB PO SCH (13:58)
[2019-01-19] MEDS: amLODIPine 10 MG TAB PO SCH (13:58)
--- NOTE | 2019-01-19 14:41 | Progress Note ---
Assessment and Plan - Patient Problems (1) ESRD (end stage renal disease) Current Visit: Yes Status: Chronic Plan to address problem: Now with progression to ESRD Continue on MWF inpatient HD schedule. Patient set up to start at [facility] tomorrow, From nephrology standpoint patient is stable for DC. (2) Hyponatremia Current Visit: Yes Status: Acute Plan to address problem: Likely in the setting of volume overload. (3) Diabetes mellitus Current Visit: Yes Status: Chronic Qualifiers: Diabetes mellitus type: type 2 Plan to address problem: DM management per primary attending. (4) HTN (hypertension) Current Visit: Yes Status: Chronic Plan to address problem: Monitor on current anti-hypertenisve regimen (5) Anemia in chronic illness Current Visit: Yes Status: Acute Plan to address problem: No acute needs for ALBERTO therapy. Will assess for ALBERTO needs as an outpatient. Subjective Date of service: 01/19/19 Principal diagnosis: CKD Interval history: Discussed with outpatient dialysis unit and patient is set up to start with us at [facility] tomorrow. Pending DC later this evening per nursing staff. Objective - Vital Signs Vital signs: Vital Signs - 12hr 01/19/19 01/19/19 01/19/19 04:14 04:21 07:32 Temperature 98.4 F 97.5 F L Pulse Rate 82 Respiratory 18 18 Rate Blood Pressure 136/65 138/65 O2 Sat by Pulse 100 Oximetry 01/19/19 01/19/19 01/19/19 09:05 09:20 09:30 Temperature 98.3 F Pulse Rate 85 84 85 Respiratory 18 Rate Blood Pressure 147/76 137/74 139/72 O2 Sat by Pulse Oximetry 01/19/19 01/19/19 01/19/19 09:45 10:00 10:15 Temperature Pulse Rate 87 86 87 Respiratory Rate Blood Pressure 128/71 127/66 126/70 O2 Sat by Pulse Oximetry 01/19/19 01/19/19 01/19/19 10:30 13:46 13:58 Temperature Pulse Rate 87 89 89 Respiratory Rate Blood Pressure 120/66 148/73 148/73 O2 Sat by Pulse 100 Oximetry - General Appearance General appearance: well-developed, well-nourished, appears stated age EENT: ATNC, PERRL Neck: no JVD, no thyromegaly Respiratory: Present: Clear to Ascultation, Normal Exam Cardiology: regular, S1S2 Gastrointestinal: normal, normoactive bowel sounds Integumentary: no rash, warm and dry Neurologic: no focal deficit, no asterixis Psychiatric: mood/affect appropriate, cooperative - Lab 01/12/19 04:00 01/15/19 07:04 Most recent lab results Calcium 7.2 mg/dL (8.4-10.2) L 01/15/19 07:04 - Allied health notes Allied health notes reviewed: nursing Medications & Allergies - Medications Allergies/Adverse Reactions: Allergies Penicillins Allergy (Verified 10/30/18 11:25) Unknown Sulfa (Sulfonamide Antibiotics) Allergy (Verified 10/30/18 11:25) Unknown Home Medications: Home Medications Medication Instructions Recorded Confirmed Last Taken Type AtorvaSTATin [Lipitor] 80 mg PO QHS #30 tablet 12/26/18 01/12/19 Unknown Rx Gabapentin 400 mg PO Q8HR #20 cap 12/26/18 01/12/19 01/11/19 Rx amLODIPine 10 mg PO DAILY #30 tablet 12/26/18 01/12/19 01/11/19 Rx Furosemide [Lasix TAB] 20 mg PO QDAY #30 tablet 01/19/19 Unknown Rx Insulin Regular, Human [HumuLIN R] 0 unit SQ AC #1 vial 01/19/19 Unknown Rx Sennosides Tab [Senokot] 17.2 mg PO QHS PRN #60 tablet 01/19/19 Unknown Rx traZODone [Desyrel] 100 mg PO QHS #30 tablet 01/19/19 Unknown Rx Active Medications: Generic Name Dose Route Start Last Admin Trade Name Owenq PRN Reason Stop Dose Admin Acetaminophen 650 mg 01/12/19 00:49 01/13/19 09:47 Tylenol PO 650 mg Q4H PRN Administration Pain MILD(1-3)/Fever >100.5/[place] Amlodipine Besylate 10 mg 01/16/19 10:00 01/19/19 13:58 Amlodipine PO 10 mg DAILY LUCA Administration Atorvastatin Calcium 80 mg 01/12/19 22:00 01/18/19 22:47 Lipitor PO 80 mg QHS LUCA Administration Dextrose 50 ml 01/12/19 01:54 D50w (25gm) Syringe IV Q30MIN PRN Hypoglycemia Enoxaparin Sodium 30 mg 01/12/19 10:00 01/19/19 13:57 Lovenox SUB-Q 30 mg QDAY LUCA Administration Furosemide 20 mg 01/12/19 10:00 01/19/19 13:58 Lasix PO 20 mg QDAY LUCA Administration Gabapentin 400 mg 01/12/19 14:00 01/19/19 13:57 Neurontin PO 400 mg Q8HR LUCA Administration Hydralazine HCl 10 mg 01/15/19 22:22 Apresoline IV Q4HR PRN Blood Pressure Sodium Chloride 100 mls @ 999 mls/hr 01/15/19 11:42 Nacl 0.9% IV ERNESTINA PRN Hypotension Insulin Human Regular 0 units 01/12/19 03:00 01/19/19 12:11 Humulin R SUB-Q Not Given ACHS [facility] Protocol Insulin Human Regular 3 units 01/19/19 11:30 01/19/19 14:08 Humulin R SUB-Q 3 units AC LUCA Administration Ondansetron HCl 4 mg 01/12/19 00:49 Zofran IV Q8H PRN Nausea And Vomiting Senna 17.2 mg 01/19/19 05:44 01/19/19 06:08 Senokot PO 17.2 mg QHS PRN Administration Constipation Sodium Chloride 10 ml 01/12/19 10:00 01/19/19 13:59 Sodium Chloride Flush Syringe 10 Ml IV 10 ml BID LUCA Administration Sodium Chloride 10 ml 01/12/19 00:49 Sodium Chloride Flush Syringe 10 Ml IV PRN PRN LINE FLUSH Trazodone HCl 100 mg 01/16/19 22:00 01/18/19 22:47 Desyrel PO 100 mg QHS LUCA Administration
[2019-01-19] MEDS ORDERED: PNEUMOCOCCAL 23 Valent 0.5 ML VIAL IM ONE (16:45)
[2019-01-19] MEDS ORDERED: FLU VACC QUAD 2019-20 (3 YR UP)/PF 60 MCG/0.5 ML SYRINGE IM ONE (16:45)
== END 2019-01-19 18:58 | disposition home or self-care (01) | DRG 673 ==
LOC: ED 17:16 → 4A 23:39
PROVIDERS: ADMIT Internal Medicine; ATTEND Internal Medicine
PROC: 0JH63XZ Insertion of Tunneled Vascular Access Device into Chest Subcutaneous Tissue and Fascia, Percutaneous Approach (ICD-10-PCS; principal; 2019-01-12)
PROC: 05HY33Z Insertion of Infusion Device into Upper Vein, Percutaneous Approach (ICD-10-PCS; 2019-01-12)
PROC: B543ZZA Ultrasonography of Right Jugular Veins, Guidance (ICD-10-PCS; 2019-01-12)
PROC: B5131ZA Fluoroscopy of Right Jugular Veins using Low Osmolar Contrast, Guidance (ICD-10-PCS; 2019-01-12)
PROC: 5A1D70Z Performance of Urinary Filtration, Intermittent, Less than 6 Hours Per Day (ICD-10-PCS; 2019-01-13)
PROC: 5A1D70Z Performance of Urinary Filtration, Intermittent, Less than 6 Hours Per Day (ICD-10-PCS; 2019-01-14)
PROC: 5A1D70Z Performance of Urinary Filtration, Intermittent, Less than 6 Hours Per Day (ICD-10-PCS; 2019-01-17)
PROC: 3E0234Z Introduction of Serum, Toxoid and Vaccine into Muscle, Percutaneous Approach (ICD-10-PCS; 2019-01-19)
PROC: 5A1D70Z Performance of Urinary Filtration, Intermittent, Less than 6 Hours Per Day (ICD-10-PCS; 2019-01-19)
DX: N17.9 Acute kidney failure, unspecified (principal); I21.A1 Myocardial infarction type 2; E87.1 Hypo-osmolality and hyponatremia; I13.2 Hypertensive heart and chronic kidney disease with heart failure and with stage 5 chronic kidney disease, or end stage renal disease; N04.9 Nephrotic syndrome with unspecified morphologic changes; R60.0 Localized edema; N18.6 End stage renal disease; R79.89 Other specified abnormal findings of blood chemistry; I95.9 Hypotension, unspecified; E11.22 Type 2 diabetes mellitus with diabetic chronic kidney disease; D63.8 Anemia in other chronic diseases classified elsewhere; I50.9 Heart failure, unspecified; K21.9 Gastro-esophageal reflux disease without esophagitis; F32.9 Major depressive disorder, single episode, unspecified; T68.XXXA Hypothermia, initial encounter; E78.5 Hyperlipidemia, unspecified; Z90.710 Acquired absence of both cervix and uterus; Z88.0 Allergy status to penicillin; Z88.2 Allergy status to sulfonamides; Z79.899 Other long term (current) drug therapy; Z82.49 Family history of ischemic heart disease and other diseases of the circulatory system; Z79.4 Long term (current) use of insulin; Z83.3 Family history of diabetes mellitus; Z23 Encounter for immunization
CPT/HCPCS: 36415; 36558; 71046; 77001; 80048; 80074; 82533; 82550; 82962; 83880; 84439; 84443; 84484; 85025; 87040; 87116; 90686; 90732; 93005; 93010; G0378; A9270-GY; C1750; J1644; J1650; J1815; J1956; J3370; J7030; J7050

== ENCOUNTER 2019-01-25 17:29 | Inpatient (IN) | payer OTHER ==
--- NOTE | 2019-01-25 18:49 | XRay Report ---
CHEST 1 VIEW INDICATION: missed dialysis, leg edema. COMPARISON: 01/11/2019 FINDINGS: Support devices: New right IJ vascular catheter with tip at the cavoatrial junction Heart: Mild cardiomegaly. Lungs/Pleura: No acute air space or interstitial disease. No pneumothorax. Additional findings: None. IMPRESSION: 1. No acute findings. 2. New right IJ catheter in satisfactory position without complication. Signer Name: Serge Duarte MD Signed: 01/25/2019 6:45 PM Workstation Name: [id number]
[2019-01-25 19:25] LABS: Basophils # (Auto) 0.1 K/mm3 (0.0-0.1); Calcium 7.7 mg/dL (8.4-10.2); Eosinophils # (Auto) 0.1 K/mm3 (0.0-0.4); Eosinophils % (Auto) 0.9 % (0.0-4.3); Hematocrit 34.3 % (30.3-42.9); Hemoglobin 11.1 gm/dl (10.1-14.3); Lymphocytes # (Auto) 2.3 K/mm3 (1.2-5.4); Lymphocytes % (Auto) 23.7 % (13.4-35.0); Mean Corpuscular HGB Conc 32 % (30-34); Mean Corpuscular Volume 79 fl (79-97); Monocytes # (Auto) 0.7 K/mm3 (0.0-0.8); Monocytes % (Auto) 6.7 % (0.0-7.3); Platelet Count 495 K/mm3 (140-440); Red Blood Count 4.33 M/mm3 (3.65-5.03)
--- NOTE | 2019-01-25 19:28 | Emergency Department Report ---
ED Extremity Problem HPI - General Chief complaint: Extremity Injury, Lower Stated complaint: BILATERAL LEG PAIN X 1 WEEK Time Seen by Provider: 01/25/19 18:20 Source: EMS, old records reviewed Mode of arrival: Stretcher Limitations: No Limitations - History of Present Illness Initial comments: 58-year-old female presents to the hospital with complaints of worsening leg edema and pain since discharge Recently admitted for worsening edema and worsening renal function. Dialysis initiated after catheter placement. Patient was discharged on January 19. States last dialysis session was during recent hospital admission. She states she has not received additional dialysis due to lack of insurance. As per medical record patient was seen by case management and dialysis was set up with [facility] for Thursday, , and Thursday. Patient was to go to the office on January 20 to complete her paperwork. Patient states she never followed up with the office due to lack of transportation and lack of insurance. Pt still has urine output MD Complaint: extremity swelling -: Gradual, week(s) (1) Location: bilateral lower extremity History of Same: Yes -: Yes myalgia, No fever, No associated dyspnea, No associated chest pain Severity scale (0 -10): 8 Quality: aching, constant Consistency: constant Improves with: nothing Worsens with: palpation Associated Symptoms: denies: chest pain, shortness of breath, fever, rash - Related Data Previous Rx's Medication Instructions Recorded Last Taken Type AtorvaSTATin [Lipitor] 80 mg PO QHS #30 tablet 12/26/18 Unknown Rx Gabapentin 400 mg PO Q8HR #20 cap 12/26/18 01/11/19 Rx amLODIPine 10 mg PO DAILY #30 tablet 12/26/18 01/11/19 Rx Furosemide [Lasix TAB] 20 mg PO QDAY #30 tablet 01/19/19 Unknown Rx Insulin Regular, Human [HumuLIN R] 0 unit SQ AC #1 vial 01/19/19 Unknown Rx Sennosides Tab [Senokot] 17.2 mg PO QHS PRN #60 tablet 01/19/19 Unknown Rx traZODone [Desyrel] 100 mg PO QHS #30 tablet 01/19/19 Unknown Rx Allergies Allergy/AdvReac Type Severity Reaction Status Date / Time Penicillins Allergy Unknown Verified 10/30/18 11:25 Sulfa (Sulfonamide Allergy Unknown Verified 10/30/18 11:25 Antibiotics) ED Review of Systems ROS: Stated complaint: BILATERAL LEG PAIN X 1 WEEK Other details as noted in HPI Comment: All other systems reviewed and negative ED Past Medical Hx - Past Medical History Previous Medical History?: Yes Hx Hypertension: Yes Hx Congestive Heart Failure: Yes Hx Diabetes: Yes Hx GERD: Yes Hx Renal Disease: Yes Hx Psychiatric Treatment: Yes (depression) Hx Asthma: No Hx COPD: No Additional medical history: high cholesterol, neuropathy, ESRD-T,TH,S - Surgical History Past Surgical History?: Yes Additional Surgical History: , myomectomy, hysterectomy - Social History Smoking Status: Never Smoker Substance Use Type: None - Medications Home Medications: Home Medications Medication Instructions Recorded Confirmed Last Taken Type AtorvaSTATin [Lipitor] 80 mg PO QHS #30 tablet 12/26/18 01/12/19 Unknown Rx Gabapentin 400 mg PO Q8HR #20 cap 12/26/18 01/12/19 01/11/19 Rx amLODIPine 10 mg PO DAILY #30 tablet 12/26/18 01/12/19 01/11/19 Rx Furosemide [Lasix TAB] 20 mg PO QDAY #30 tablet 01/19/19 Unknown Rx Insulin Regular, Human [HumuLIN R] 0 unit SQ AC #1 vial 01/19/19 Unknown Rx Sennosides Tab [Senokot] 17.2 mg PO QHS PRN #60 tablet 01/19/19 Unknown Rx traZODone [Desyrel] 100 mg PO QHS #30 tablet 01/19/19 Unknown Rx ED Physical Exam - General Limitations: No Limitations - Other Other exam information: General: No acute distress Head: Atraumatic Eyes: normal appearance ENT: Moist mucous membranes Neck: Normal appearance, no midline tenderness Chest: Clear to auscultation bilaterally CV: Regular rate and rhythm Abdomen: Soft, normal bowel sounds, nontender, nondistended, no rebound or guarding Back: Normal inspection Extremity: Normal inspection infection, full range of motion bilateral 3+ pitting leg edema no leg asymmetry Neuro: Alert O x 3, no facial asymmetry, speech clear, no gross motor sensory deficit Psych: Appropriate behavior Skin: No rash ED Course Vital Signs 01/25/19 01/25/19 01/25/19 17:44 18:30 21:10 Temperature 98.4 F Pulse Rate 66 63 65 Respiratory 16 16 15 Rate Blood Pressure 135/64 126/56 146/64 [Right] O2 Sat by Pulse 100 100 99 Oximetry - Reevaluation(s) Reevaluation #1: 01/25/19 19:58 I called patient's sister on record. She states that patient was unable to get dialysis due to lack of insurance and therefore has not received dialysis since discharge. - Consultations Consultation #1: 01/25/19 20:23 case d/w Dr Arndt, request admission for dialysis and case mgmt consult to arrange for dialysis Consultation #2: 01/25/19 20:25 case d/w dr ruffin/hosp, requests admission to dr jimenez when she comes on shift at 9pm ED Medical Decision Making - Lab Data Result diagrams: 01/25/19 18:53 01/25/19 18:53 Lab Results 01/25/19 01/25/19 Range/Units 18:53 18:53 WBC 9.7 (4.5-11.0) K/mm3 RBC 4.33 (3.65-5.03) M/mm3 Hgb 11.1 (10.1-14.3) gm/dl Hct 34.3 (30.3-42.9) % MCV 79 (79-97) fl MCH 26 L (28-32) pg MCHC 32 (30-34) % RDW 14.0 (13.2-15.2) % Plt Count 495 H (140-440) K/mm3 Lymph % (Auto) 23.7 (13.4-35.0) % [place] % (Auto) 6.7 (0.0-7.3) % Eos % (Auto) 0.9 (0.0-4.3) % Baso % (Auto) 1.0 (0.0-1.8) % Lymph # 2.3 (1.2-5.4) K/mm3 [place] # 0.7 (0.0-0.8) K/mm3 Eos # 0.1 (0.0-0.4) K/mm3 Baso # 0.1 (0.0-0.1) K/mm3 Seg Neutrophils % 67.7 (40.0-70.0) % Seg Neutrophils # 6.6 (1.8-7.7) K/mm3 Sodium 134 L (137-145) mmol/L Potassium 4.1 (3.6-5.0) mmol/L Chloride 100.2 (98-107) mmol/L Carbon Dioxide 20 L (22-30) mmol/L Anion Gap 18 mmol/L BUN 43 H (7-17) mg/dL Creatinine 3.6 H (0.7-1.2) mg/dL Estimated GFR 16 ml/min BUN/Creatinine Ratio 12 % Glucose 361 H (65-100) mg/dL Calcium 7.7 L (8.4-10.2) mg/dL NT-Pro-B Natriuret Pep 5178 H (0-900) pg/mL - EKG Data -: EKG Interpreted by Mt EKG shows normal: sinus rhythm, ST-T waves (no stemi, no peak t waves) Rate: normal - Radiology Data Radiology results: report reviewed CHEST 1 VIEW INDICATION: missed dialysis, leg edema. COMPARISON: 01/11/2019 FINDINGS: Support devices: New right IJ vascular catheter with tip at the cavoatrial junction Heart: Mild cardiomegaly. Lungs/Pleura: No acute air space or interstitial disease. No pneumothorax. Additional findings: None. IMPRESSION: 1. No acute findings. 2. New right IJ catheter in satisfactory position without complication. - Medical Decision Making volume overload with leg edema issues with outpt dialysis due to lack of insurance case d/w nephrology Patient will be admitted for dialysis in the morning and case management consultation - Differential Diagnosis chf, hyperkalemia, volume overload Critical Care Time: No Critical care attestation.: If time is entered above; I have spent that time in minutes in the direct care of this critically ill patient, excluding procedure time. ED Disposition Clinical Impression: Renal insufficiency, ESRD needing dialysis Disposition: OP ADMIT IP TO THIS HOSP Is pt being admited?: Yes Condition: Stable Time of Disposition: 20:25 (Dr ruffin to be admitted to Dr Jimenez)
[2019-01-25] MEDS ORDERED: ACETAMINOPHEN 325 MG TAB PO PRN (22:47)
[2019-01-25] MEDS ORDERED: ONDANSETRON 4 MG/2 ML INJ IV PRN (22:47)
--- NOTE | 2019-01-25 22:47 | History and Physical Report ---
History of Present Illness Date of examination: 01/25/19 Date of admission: 01/25/19 20:43 History of present illness: 58-year-old history of CHF, hypertension, diabetes, GERD, depression, hyper lipidemia, ESRD on HD comes emergency room with complaints of worsening swelling of leg . Patient has not had dialysis in 1 week since her last dischargeon January 19, unable to access a ride to dialysis and no insurance eview Of Systems: Constitutional: no weight loss, fever, chills Ears, eyes, nose, mouth and throat: no nasal congestion, no nasal discharge, no sinus pressure, blurry vision, diplopia Neck: No neck pain or rigidity. Cardiovascular: No palpitations, chest pain Respiratory: No shortness of breath, cough Gastrointestinal: No hematochezia, abdominal pain Genitourinary : no dysuria, frequency , hematuria Musculoskeletal: no muscle ache , joint pain Integumentary: no rash, no pruritis Neurological: no parathesias, focal weakness Endocrine: no cold or heat intolerance, no polyuria or polydipsia Hematologic/Lymphatic: no easy bruising, no easy bleeding, no gland swelling Allergic/Immunologic: no urticaria, no angioedema. PAST MEDICAL HISTORY:CHF, hypertension, diabetes, GERD, depression, hyperlipidemia, ESRD PAST SURGICAL HISTORY: Hysterectomy, myomectomy, FAMILY HISTORY:hypertension, diabetes SOCIAL HISTORY: Denies tobacco, drugs, alcohol Medications and Allergies Allergies Allergy/AdvReac Type Severity Reaction Status Date / Time Penicillins Allergy Unknown Verified 10/30/18 11:25 Sulfa (Sulfonamide Allergy Unknown Verified 10/30/18 11:25 Antibiotics) Home Medications Medication Instructions Recorded Confirmed Last Taken Type AtorvaSTATin [Lipitor] 80 mg PO QHS #30 tablet 12/26/18 01/25/19 01/24/19 22:00 Rx Gabapentin 400 mg PO Q8HR #20 cap 12/26/18 01/25/19 01/24/19 14:00 Rx amLODIPine 10 mg PO DAILY #30 tablet 12/26/18 01/25/19 01/24/19 14:00 Rx Furosemide [Lasix TAB] 20 mg PO QDAY #30 tablet 01/19/19 01/25/19 01/24/19 10:00 Rx Sennosides Tab [Senokot] 17.2 mg PO QHS PRN #60 tablet 01/19/19 01/25/19 01/17/19 22:00 Rx traZODone [Desyrel] 100 mg PO QHS #30 tablet 01/19/19 01/25/19 01/24/19 22:00 Rx Insulin Regular, Human 10 units SUB-Q QHS 01/25/19 01/25/19 01/24/19 22:00 History Insulin Regular, Human [HumuLIN R] 5 unit SQ AC 01/25/19 01/25/19 01/17/19 History Exam - Physical Exam Narrative exam: General Apperance: The patient sitting in bed no acute distress HEENT: Normocephalic, atraumatic. Pupils equally round and reactive to light, extraocular movement intact, and no sclericterus or JVD or thyromegaly or nodule. Neck supple, no carotid bruit, mucous membranes moist, no exudate or erythema Heart: S1-S2, regular is rhythm Lungs: Clear to auscultation bilaterally, breathing comfortable Abdomen: Positive bowel sounds, soft, nontender, nondistended, no organomegaly Extremities:2+ edema up to knees, no cyanosis clubbing Skin: no rash, nodule, warm and dry Neuro:CN 2 -12 intact, motor/sensory intact, speech is fluent - Constitutional Vitals: Temp Pulse Resp BP Pulse Ox 98.4 F 65 15 146/64 99 01/25/19 17:44 01/25/19 21:10 01/25/19 21:10 01/25/19 21:10 01/25/19 21:10 Results - Labs CBC & Chem 7: 01/25/19 18:53 01/25/19 18:53 Labs: Abnormal lab results 01/25/19 01/25/19 01/25/19 Range/Units 18:53 18:53 22:29 MCH 26 L (28-32) pg Plt Count 495 H (140-440) K/mm3 Sodium 134 L (137-145) mmol/L Carbon Dioxide 20 L (22-30) mmol/L BUN 43 H (7-17) mg/dL Creatinine 3.6 H (0.7-1.2) mg/dL Glucose 361 H (65-100) mg/dL POC Glucose 294 H (70-105) Calcium 7.7 L (8.4-10.2) mg/dL NT-Pro-B Natriuret Pep 5178 H (0-900) pg/mL - Imaging and Cardiology EKG: image reviewed Chest x-ray: report reviewed Assessment and Plan Assessment Fluid Overload ESRD Diabetes GERD Depression Hyperlipidemia Plan Admit to medicine renal was consulted to see the patient Check fingersticks initiate insulin sliding-scale Continue appropriate outpatient medications DVT prophylaxis
[2019-01-25] MEDS ORDERED: DEXTROSE 50% IN WATER (25GM) 50 ML SYRINGE IV PRN (23:05)
[2019-01-26] MEDS ORDERED: oxyCODONE /ACETAMINOPHEN 5-325MG TAB PO PRN (01:24)
[2019-01-26] MEDS: GABAPENTIN 400 MG CAP PO SCH ×3 (06:26→22:58)
[2019-01-26 06:34] LABS: Basophils % (Auto) 0.4 % (0.0-1.8); Eosinophils # (Auto) 0.2 K/mm3 (0.0-0.4); Eosinophils % (Auto) 2.1 % (0.0-4.3); Hematocrit 28.2 % (30.3-42.9); Hemoglobin 9.1 gm/dl (10.1-14.3); Lymphocytes # (Auto) 2.5 K/mm3 (1.2-5.4); Lymphocytes % (Auto) 32.6 % (13.4-35.0); Mean Corpuscular HGB Conc 32 % (30-34); Mean Corpuscular Volume 79 fl (79-97); Monocytes # (Auto) 0.6 K/mm3 (0.0-0.8); Monocytes % (Auto) 7.5 % (0.0-7.3); Platelet Count 464 K/mm3 (140-440); Red Blood Count 3.57 M/mm3 (3.65-5.03)
[2019-01-26 06:59] LABS: Calcium 7.4 mg/dL (8.4-10.2)
[2019-01-26] MEDS: INSULIN LISPRO 100 UNIT/ML SUB-Q SCH ×4 (08:32→22:58)
[2019-01-26] MEDS ORDERED: SODIUM CHLORIDE 0.9% 100 ML IV PRN (09:42)
[2019-01-26] MEDS: amLODIPine 10 MG TAB PO SCH (10:15)
--- NOTE | 2019-01-26 11:35 | Progress Note ---
Assessment and Plan Assessment and plan: Fluid Overload ESRD Diabetes mellitus type 2 GERD Depression Hyperlipidemia Debility failure to thrive Plan Admit to medicine Nephrology following renal was consulted to see the patient Check fingersticks initiate insulin sliding-scale Continue appropriate outpatient medications DVT prophylaxis Physical therapy teofilo maria discussed with caser History Interval history: patient missed several dialysis sessions presented with bilateral leg swelling Hospitalist Physical - Constitutional Vitals: Temp Pulse Resp BP Pulse Ox 97.4 F L 64 16 115/54 100 01/26/19 05:09 01/26/19 10:15 01/26/19 05:09 01/26/19 10:15 01/26/19 05:09 General appearance: Present: no acute distress - EENT ENT: hearing intact - Neck Neck: Present: supple - Respiratory Respiratory: bilateral: CTA, negative: rhonchi, wheezing - Cardiovascular Rhythm: regular Heart Sounds: Present: S1 & S2 - Extremities Extremity abnormal: edema (edema bilat lower ext) - Abdominal General gastrointestinal: soft, non-tender, non-distended, normal bowel sounds - Integumentary Integumentary: Present: clear, warm, dry - Neurologic Neurologic: moves all extremities Results - Labs CBC & Chem 7: 01/26/19 05:38 01/26/19 05:38 Labs: Laboratory Last Values WBC 7.8 K/mm3 (4.5-11.0) 01/26/19 05:38 RBC 3.57 M/mm3 (3.65-5.03) L 01/26/19 05:38 Hgb 9.1 gm/dl (10.1-14.3) L 01/26/19 05:38 Hct 28.2 % (30.3-42.9) L D 01/26/19 05:38 MCV 79 fl (79-97) 01/26/19 05:38 MCH 26 pg (28-32) L 01/26/19 05:38 MCHC 32 % (30-34) 01/26/19 05:38 RDW 14.0 % (13.2-15.2) 01/26/19 05:38 Plt Count 464 K/mm3 (140-440) H 01/26/19 05:38 Lymph % (Auto) 32.6 % (13.4-35.0) 01/26/19 05:38 [place] % (Auto) 7.5 % (0.0-7.3) H 01/26/19 05:38 Eos % (Auto) 2.1 % (0.0-4.3) 01/26/19 05:38 Baso % (Auto) 0.4 % (0.0-1.8) 01/26/19 05:38 Lymph # 2.5 K/mm3 (1.2-5.4) 01/26/19 05:38 [place] # 0.6 K/mm3 (0.0-0.8) 01/26/19 05:38 Eos # 0.2 K/mm3 (0.0-0.4) 01/26/19 05:38 Baso # 0.0 K/mm3 (0.0-0.1) 01/26/19 05:38 Seg Neutrophils % 57.4 % (40.0-70.0) 01/26/19 05:38 Seg Neutrophils # 4.5 K/mm3 (1.8-7.7) 01/26/19 05:38 Sodium 140 mmol/L (137-145) 01/26/19 05:38 Potassium 3.9 mmol/L (3.6-5.0) 01/26/19 05:38 Chloride 103.7 mmol/L (98-107) 01/26/19 05:38 Carbon Dioxide 22 mmol/L (22-30) 01/26/19 05:38 Anion Gap 18 mmol/L 01/26/19 05:38 BUN 43 mg/dL (7-17) H 01/26/19 05:38 Creatinine 3.7 mg/dL (0.7-1.2) H 01/26/19 05:38 Estimated GFR 15 ml/min 01/26/19 05:38 BUN/Creatinine Ratio 12 % 01/26/19 05:38 Glucose 223 mg/dL (65-100) H 01/26/19 05:38 POC Glucose 228 (70-105) H 01/26/19 11:26 Calcium 7.4 mg/dL (8.4-10.2) L 01/26/19 05:38 NT-Pro-B Natriuret Pep 5178 pg/mL (0-900) H 01/25/19 18:53 Active Medications - Current Medications Current Medications: Generic Name Dose Route Start Last Admin Trade Name Freq PRN Reason Stop Dose Admin Acetaminophen 650 mg 01/25/19 22:47 Tylenol PO Q4H PRN Pain MILD(1-3)/Fever >100.5/[place] Amlodipine Besylate 10 mg 01/26/19 10:00 01/26/19 10:15 Amlodipine PO 10 mg DAILY LUCA Administration Atorvastatin Calcium 80 mg 01/26/19 22:00 Lipitor PO QHS LUCA Dextrose 0 ml 01/25/19 23:05 D50w (25gm) Syringe IV Q30MIN PRN Hypoglycemia Gabapentin 400 mg 01/26/19 06:00 01/26/19 06:26 Gabapentin PO 400 mg Q8HR [facility]CA Administration Sodium Chloride 100 mls @ 999 mls/hr 01/26/19 09:42 Nacl 0.9% IV ERNESTINA PRN Hypotension Insulin Human Lispro 0 unit 01/26/19 07:30 01/26/19 08:32 Humalog SUB-Q 3 unit ACHS [facility]CA Administration Protocol Ondansetron HCl 4 mg 01/25/19 22:47 Zofran IV Q8H PRN Nausea And Vomiting Oxycodone/Acetaminophen 1 tab 01/26/19 01:24 Percocet 5/325 PO Q6H PRN Pain, Moderate (4-6) Sodium Chloride 10 ml 01/26/19 10:00 01/26/19 10:15 Sodium Chloride Flush Syringe 10 Ml IV 10 ml BID [facility]CA Administration Sodium Chloride 10 ml 01/25/19 22:47 Sodium Chloride Flush Syringe 10 Ml IV PRN PRN LINE FLUSH
--- NOTE | 2019-01-26 13:38 | Consultation ---
History of Present Illness - Reason for Consult Consult date: 01/26/19 end stage renal disease Requesting physician: SAVITA PATTON - History of Present Illness This is a 58-year-old F with history of CHF, hypertension, diabetes, GERD, depression, hyperlipidemia, recently diagnosed ESRD on HD comes emergency room with complaints of worsening swelling of leg. Patient was recently hospitalized from 01/12 to 01/19 for advanced renal failure along with significant fluid overload, was initiated on HD and outpatient HD was scheduled at [facility], however pt missed her dialysis for 1 week since her last discharge on January 19, since she was unable to access a ride to dialysis and no insurance. Past History Past Medical History: diabetes, ESRD, hypertension, renal failure Past Surgical History: Other (permcath placement ) Social history: denies: smoking, alcohol abuse, prescription drug abuse, IV drug use Family history: hypertension Medications and Allergies Allergies Allergy/AdvReac Type Severity Reaction Status Date / Time Penicillins Allergy Unknown Verified 10/30/18 11:25 Sulfa (Sulfonamide Allergy Unknown Verified 10/30/18 11:25 Antibiotics) Home Medications Medication Instructions Recorded Confirmed Last Taken Type AtorvaSTATin [Lipitor] 80 mg PO QHS #30 tablet 12/26/18 01/25/19 01/24/19 22:00 Rx Gabapentin 400 mg PO Q8HR #20 cap 12/26/18 01/25/19 01/24/19 14:00 Rx amLODIPine 10 mg PO DAILY #30 tablet 12/26/18 01/25/19 01/24/19 14:00 Rx Furosemide [Lasix TAB] 20 mg PO QDAY #30 tablet 01/19/19 01/25/19 01/24/19 10:00 Rx Sennosides Tab [Senokot] 17.2 mg PO QHS PRN #60 tablet 01/19/19 01/25/19 01/17/19 22:00 Rx traZODone [Desyrel] 100 mg PO QHS #30 tablet 01/19/19 01/25/19 01/24/19 22:00 Rx Insulin Regular, Human 10 units SUB-Q QHS 01/25/19 01/25/19 01/24/19 22:00 History Insulin Regular, Human [HumuLIN R] 5 unit SQ AC 01/25/19 01/25/19 01/17/19 History Active Meds: Active Medications Acetaminophen (Tylenol) 650 mg PO Q4H PRN PRN Reason: Pain MILD(1-3)/Fever >100.5/[place] Amlodipine Besylate (Amlodipine) 10 mg PO DAILY [facility] Last Admin: 01/26/19 10:15 Dose: 10 mg Documented by: Atorvastatin Calcium (Lipitor) 80 mg PO QHS [facility] Dextrose (D50w (25gm) Syringe) 0 ml IV Q30MIN PRN PRN Reason: Hypoglycemia Gabapentin (Gabapentin) 400 mg PO Q8HR [facility] Last Admin: 01/26/19 06:26 Dose: 400 mg Documented by: Sodium Chloride (Nacl 0.9%) 100 mls @ 999 mls/hr IV ERNESTINA PRN PRN Reason: Hypotension Insulin Human Lispro (Humalog) 0 unit SUB-Q ACHS [facility]; Protocol Last Admin: 01/26/19 12:46 Dose: Not Given Documented by: Ondansetron HCl (Zofran) 4 mg IV Q8H PRN PRN Reason: Nausea And Vomiting Oxycodone/Acetaminophen (Percocet 5/325) 1 tab PO Q6H PRN PRN Reason: Pain, Moderate (4-6) Sodium Chloride (Sodium Chloride Flush Syringe 10 Ml) 10 ml IV BID [facility] Last Admin: 01/26/19 10:15 Dose: 10 ml Documented by: Sodium Chloride (Sodium Chloride Flush Syringe 10 Ml) 10 ml IV PRN PRN PRN Reason: LINE FLUSH Review of Systems All systems: negative Constitutional: weakness Exam - Vital Signs Vital signs: Vital Signs Temp Pulse Resp BP Pulse Ox 98.4 F 66 16 135/64 100 01/25/19 17:44 01/25/19 17:44 01/25/19 17:44 01/25/19 17:44 01/25/19 17:44 - General Appearance General appearance: well-developed, well-nourished, appears stated age EENT: ATNC, PERRL, mucous membranes moist Neck: Present: neck supple Respiratory: Clear to Ascultation Heart: regular, S1S2 Gastrointestinal: Present: normoactive bowel sounds Integumentary: no rash, other (+ edema b/l LE ) Neurologic: no focal deficit, alert and oriented x3, strength 5/5, CN 3-12 intact Psychiatric: mood/affect appropriate, cooperative Results - Lab Results 01/26/19 05:38 01/26/19 05:38 Most recent lab results Calcium 7.4 mg/dL (8.4-10.2) L 01/26/19 05:38 Assessment and Plan - Patient Problems (1) ESRD needing dialysis Current Visit: Yes Status: Acute Plan to address problem: HD arranged today, target UF 2-3L as tolerated for volume/BP control. case management to assist with outpatient HD placement/transport to HD center (2) Hypertensive chronic kidney disease with stage 5 chronic kidney disease or end stage renal disease Current Visit: Yes Status: Acute Plan to address problem: monitor BP on current meds (3) Type 2 diabetes mellitus with diabetic chronic kidney disease Current Visit: Yes Status: Acute Plan to address problem: glucose control as per primary attending (4) Lower extremity edema Current Visit: Yes Status: Acute Plan to address problem: HD today with target UF 2-3L as tolerated
[2019-01-26] MEDS ORDERED: SODIUM CHLORIDE*PRIMING MACHINE ONLY FOR DIALYSIS MC ONE (22:51)
[2019-01-27] MEDS: HEPARIN 5,000 UNIT/1 ML VIAL SUB-Q SCH ×3 (01:37→22:37)
[2019-01-27] MEDS: GABAPENTIN 400 MG CAP PO SCH ×3 (05:29→22:36)
[2019-01-27] MEDS: INSULIN LISPRO 100 UNIT/ML SUB-Q SCH ×4 (08:53→22:38)
[2019-01-27] MEDS: amLODIPine 10 MG TAB PO SCH (09:05)
--- NOTE | 2019-01-27 16:52 | Progress Note ---
Assessment and Plan Assessment and plan: Fluid Overload ESRD Diabetes mellitus type 2 GERD Depression Hyperlipidemia Debility failure to thrive possible depression - will consult Psych Plan Admit to medicine Nephrology following renal was consulted to see the patient Check fingersticks initiate insulin sliding-scale Continue appropriate outpatient medications DVT prophylaxis Physical therapy teofilo Young discussed with residential case manager. her dialysis center does not want her back History Interval history: patient missed several dialysis sessions presented with bilateral leg swelling Had dialysis yesterday Hospitalist Physical - Constitutional Vitals: Temp Pulse Resp BP Pulse Ox 98.6 F 84 18 142/73 100 01/27/19 16:19 01/27/19 16:19 01/27/19 16:19 01/27/19 16:19 01/27/19 16:19 General appearance: Present: no acute distress - EENT Eyes: Present: PERRL - Neck Neck: Present: supple - Respiratory Respiratory effort: normal Respiratory: bilateral: CTA - Cardiovascular Rhythm: regular Heart Sounds: Present: S1 & S2 - Extremities Extremity abnormal: edema (bilat legs) - Abdominal General gastrointestinal: soft, non-tender, non-distended, normal bowel sounds - Integumentary Integumentary: Present: clear, warm, dry Results - Labs CBC & Chem 7: 01/26/19 05:38 01/26/19 05:38 Labs: Laboratory Last Values WBC 7.8 K/mm3 (4.5-11.0) 01/26/19 05:38 RBC 3.57 M/mm3 (3.65-5.03) L 01/26/19 05:38 Hgb 9.1 gm/dl (10.1-14.3) L 01/26/19 05:38 Hct 28.2 % (30.3-42.9) L D 01/26/19 05:38 MCV 79 fl (79-97) 01/26/19 05:38 MCH 26 pg (28-32) L 01/26/19 05:38 MCHC 32 % (30-34) 01/26/19 05:38 RDW 14.0 % (13.2-15.2) 01/26/19 05:38 Plt Count 464 K/mm3 (140-440) H 01/26/19 05:38 Lymph % (Auto) 32.6 % (13.4-35.0) 01/26/19 05:38 [place] % (Auto) 7.5 % (0.0-7.3) H 01/26/19 05:38 Eos % (Auto) 2.1 % (0.0-4.3) 01/26/19 05:38 Baso % (Auto) 0.4 % (0.0-1.8) 01/26/19 05:38 Lymph # 2.5 K/mm3 (1.2-5.4) 01/26/19 05:38 [place] # 0.6 K/mm3 (0.0-0.8) 01/26/19 05:38 Eos # 0.2 K/mm3 (0.0-0.4) 01/26/19 05:38 Baso # 0.0 K/mm3 (0.0-0.1) 01/26/19 05:38 Seg Neutrophils % 57.4 % (40.0-70.0) 01/26/19 05:38 Seg Neutrophils # 4.5 K/mm3 (1.8-7.7) 01/26/19 05:38 Sodium 140 mmol/L (137-145) 01/26/19 05:38 Potassium 3.9 mmol/L (3.6-5.0) 01/26/19 05:38 Chloride 103.7 mmol/L (98-107) 01/26/19 05:38 Carbon Dioxide 22 mmol/L (22-30) 01/26/19 05:38 Anion Gap 18 mmol/L 01/26/19 05:38 BUN 43 mg/dL (7-17) H 01/26/19 05:38 Creatinine 3.7 mg/dL (0.7-1.2) H 01/26/19 05:38 Estimated GFR 15 ml/min 01/26/19 05:38 BUN/Creatinine Ratio 12 % 01/26/19 05:38 Glucose 223 mg/dL (65-100) H 01/26/19 05:38 POC Glucose 226 (70-105) H 01/27/19 12:10 Calcium 7.4 mg/dL (8.4-10.2) L 01/26/19 05:38 NT-Pro-B Natriuret Pep 5178 pg/mL (0-900) H 01/25/19 18:53 Active Medications - Current Medications Current Medications: Generic Name Dose Route Start Last Admin Trade Name Joya PRN Reason Stop Dose Admin Acetaminophen 650 mg 01/25/19 22:47 Tylenol PO Q4H PRN Pain MILD(1-3)/Fever >100.5/[place] Amlodipine Besylate 10 mg 01/26/19 10:00 01/27/19 09:05 Amlodipine PO 10 mg DAILY [facility] Administration Atorvastatin Calcium 80 mg 01/26/19 22:00 01/26/19 22:58 Lipitor PO 80 mg QHS [facility]CA Administration Dextrose 0 ml 01/25/19 23:05 D50w (25gm) Syringe IV Q30MIN PRN Hypoglycemia Gabapentin 400 mg 01/26/19 06:00 01/27/19 13:10 Gabapentin PO 400 mg Q8HR [facility] Administration Heparin Sodium (Porcine) 5,000 unit 01/26/19 23:30 01/27/19 09:04 Heparin SUB-Q 5,000 unit Q12HR [facility]CA Administration Sodium Chloride 100 mls @ 999 mls/hr 01/26/19 09:42 Nacl 0.9% IV ERNESTINA PRN Hypotension Insulin Human Lispro 0 unit 01/26/19 07:30 01/27/19 13:11 Humalog SUB-Q 3 unit ACHS [facility]CA Administration Protocol Ondansetron HCl 4 mg 01/25/19 22:47 Zofran IV Q8H PRN Nausea And Vomiting Oxycodone/Acetaminophen 1 tab 01/26/19 01:24 Percocet 5/325 PO Q6H PRN Pain, Moderate (4-6) Sodium Chloride 10 ml 01/26/19 10:00 01/27/19 09:04 Sodium Chloride Flush Syringe 10 Ml IV 10 ml BID ULCA Administration Sodium Chloride 10 ml 01/25/19 22:47 Sodium Chloride Flush Syringe 10 Ml IV PRN PRN LINE FLUSH
--- NOTE | 2019-01-27 16:54 | Progress Note ---
Assessment and Plan - Patient Problems (1) ESRD needing dialysis Current Visit: Yes Status: Acute Plan to address problem: HD arranged today, target UF 2-3L as tolerated for volume/BP control. case management to assist with outpatient HD placement/transport to HD center close to her current place of living (2) Hypertensive chronic kidney disease with stage 5 chronic kidney disease or end stage renal disease Current Visit: Yes Status: Acute Plan to address problem: monitor BP on current meds (3) Type 2 diabetes mellitus with diabetic chronic kidney disease Current Visit: Yes Status: Acute Plan to address problem: glucose control as per primary attending (4) Lower extremity edema Current Visit: Yes Status: Acute Plan to address problem: HD today with target UF 2-3L as tolerated Subjective Date of service: 01/27/19 Principal diagnosis: ESRD Interval history: Pt awake, alert, in NAD Objective - Vital Signs Vital signs: Vital Signs - 12hr 01/27/19 01/27/19 01/27/19 06:30 08:57 09:05 Temperature 98.5 F Pulse Rate 75 80 Respiratory 18 Rate Blood Pressure 140/69 127/63 O2 Sat by Pulse 98 98 Oximetry 01/27/19 01/27/19 11:58 16:19 Temperature 98.1 F 98.6 F Pulse Rate 82 84 Respiratory 16 18 Rate Blood Pressure 117/55 142/73 O2 Sat by Pulse 100 100 Oximetry - General Appearance General appearance: well-developed, well-nourished, appears stated age EENT: ATNC, PERRL, mucous membranes moist Neck: no JVD Respiratory: Present: Clear to Ascultation Cardiology: regular, S1S2 Gastrointestinal: normoactive bowel sounds Integumentary: no rash, other (no edema ) Neurologic: no focal deficit, alert and oriented x3, strength 5/5, CN 3-12 intact Psychiatric: mood/affect appropriate, cooperative - Lab 01/26/19 05:38 01/26/19 05:38 Most recent lab results Calcium 7.4 mg/dL (8.4-10.2) L 01/26/19 05:38 Medications & Allergies - Medications Allergies/Adverse Reactions: Allergies Penicillins Allergy (Verified 10/30/18 11:25) Unknown Sulfa (Sulfonamide Antibiotics) Allergy (Verified 10/30/18 11:25) Unknown Home Medications: Home Medications Medication Instructions Recorded Confirmed Last Taken Type AtorvaSTATin [Lipitor] 80 mg PO QHS #30 tablet 12/26/18 01/25/19 01/24/19 22:00 Rx Gabapentin 400 mg PO Q8HR #20 cap 12/26/18 01/25/19 01/24/19 14:00 Rx amLODIPine 10 mg PO DAILY #30 tablet 12/26/18 01/25/19 01/24/19 14:00 Rx Furosemide [Lasix TAB] 20 mg PO QDAY #30 tablet 01/19/19 01/25/19 01/24/19 10:00 Rx Sennosides Tab [Senokot] 17.2 mg PO QHS PRN #60 tablet 01/19/19 01/25/19 01/17/19 22:00 Rx traZODone [Desyrel] 100 mg PO QHS #30 tablet 01/19/19 01/25/19 01/24/19 22:00 Rx Insulin Regular, Human 10 units SUB-Q QHS 01/25/19 01/25/19 01/24/19 22:00 History Insulin Regular, Human [HumuLIN R] 5 unit SQ AC 01/25/19 01/25/19 01/17/19 History Active Medications: Generic Name Dose Route Start Last Admin Trade Name Freq PRN Reason Stop Dose Admin Acetaminophen 650 mg 01/25/19 22:47 Tylenol PO Q4H PRN Pain MILD(1-3)/Fever >100.5/[place] Amlodipine Besylate 10 mg 01/26/19 10:00 01/27/19 09:05 Amlodipine PO 10 mg DAILY [facility] Administration Atorvastatin Calcium 80 mg 01/26/19 22:00 01/26/19 22:58 Lipitor PO 80 mg QHS [facility]CA Administration Dextrose 0 ml 01/25/19 23:05 D50w (25gm) Syringe IV Q30MIN PRN Hypoglycemia Gabapentin 400 mg 01/26/19 06:00 01/27/19 13:10 Gabapentin PO 400 mg Q8HR [facility]CA Administration Heparin Sodium (Porcine) 5,000 unit 01/26/19 23:30 01/27/19 09:04 Heparin SUB-Q 5,000 unit Q12HR [facility]CA Administration Sodium Chloride 100 mls @ 999 mls/hr 01/26/19 09:42 Nacl 0.9% IV ERNESTINA PRN Hypotension Insulin Human Lispro 0 unit 01/26/19 07:30 01/27/19 13:11 Humalog SUB-Q 3 unit ACHS [facility]CA Administration Protocol Ondansetron HCl 4 mg 01/25/19 22:47 Zofran IV Q8H PRN Nausea And Vomiting Oxycodone/Acetaminophen 1 tab 01/26/19 01:24 Percocet 5/325 PO Q6H PRN Pain, Moderate (4-6) Sodium Chloride 10 ml 01/26/19 10:00 01/27/19 09:04 Sodium Chloride Flush Syringe 10 Ml IV 10 ml BID LUCA Administration Sodium Chloride 10 ml 01/25/19 22:47 Sodium Chloride Flush Syringe 10 Ml IV PRN PRN LINE FLUSH
[2019-01-28] MEDS: GABAPENTIN 400 MG CAP PO SCH ×2 (05:47→15:10)
[2019-01-28] MEDS: INSULIN LISPRO 100 UNIT/ML SUB-Q SCH ×3 (07:30→16:02)
[2019-01-28 07:43] LABS: Hematocrit 26.8 % (30.3-42.9); Hemoglobin 8.5 gm/dl (10.1-14.3)
[2019-01-28] MEDS: HEPARIN 5,000 UNIT/1 ML VIAL SUB-Q SCH (09:29)
--- NOTE | 2019-01-28 09:53 | Discharge Summary ---
Providers - Providers Date of Admission: 01/27/19 16:01 Date of discharge: 01/28/19 Attending physician: PHOENIX WISEMAN 01/25/19 20:00 Consult to Physician [CONS] Urgent Comment: Dr. Antunez spoke with Dr. Gray @ 195 Consulting Provider: ETHEL GRAY Physician Instructions: Reason For Exam: esrd needing dialysis 01/26/19 12:02 Physical Therapy Evaluation and Treat [CONS] Routine Comment: Reason For Exam: difficulty in ambulation 01/27/19 16:53 Consult to Mental Health [CONS] Routine Reason For Exam: possible depression Place consult to:: Psych [facility] Condition: [facility] Hospital course: Patient is 58-year-old history of CHF, hypertension, diabetes, GERD, depression, hyperlipidemia, ESRD on HD comes emergency room with complaints of worsening swelling of leg . Patient has not had dialysis in 1 week since her last discharge on January 19, because she was unable to access a ride to dialysis and no insurance. She was admitted, evaluated by nephrology. Patient is from [facility]. Dialysis Unit declined to accept patient back. 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 Fluid Overload due to missed hemodialysis. Admitted. nephrology consulted, d ialysis done inpatient ESRD. managed by Nephrology Diabetes mellitus type 2. Fingerstick measured qac and hs GERD Depression Hyperlipidemia Debility Failure to thrive Total time spent on discharge, 33 mins Disposition: - TO HOME OR SELFCARE - Discharge Diagnoses (1) Debility Status: Acute (2) ESRD (end stage renal disease) Status: Acute (3) Missed dialysis Status: Acute (4) Diabetes mellitus Status: Chronic Qualifiers: Diabetes mellitus type: type 2 (5) ESRD (end stage renal disease) Status: Chronic (6) HTN (hypertension) Status: Chronic (7) Hyperlipidemia Status: Chronic Core Measure Documentation - Palliative Care Palliative Care/ Comfort Measures: Not Applicable - Core Measures Any of the following diagnoses?: none Exam - Constitutional Vitals: Temp Pulse Resp BP Pulse Ox 99.1 F 85 18 137/59 96 01/28/19 05:25 01/28/19 05:25 01/28/19 05:25 01/28/19 05:25 01/28/19 05:25 Plan Activity: no restrictions Diet: low fat, low cholesterol, low salt Plan of Treatment: 1.Follow up with PCP in 3-5 days. 2.Continue routine hemodialysis as scheduled 3.Follow up with Nephrology in 3-5 days Follow up with: [facility] [Outside] - 7 Days [place] [facility]IR[facility] MD [Primary Care Provider] - 7 Days
--- NOTE | 2019-01-28 12:40 | Progress Note ---
Assessment and Plan - Patient Problems (1) ESRD needing dialysis Current Visit: Yes Status: Acute Plan to address problem: Cont HD on MWF schedule. case management to assist with outpatient HD placement/transport to HD center close to her current place of living (2) Hypertensive chronic kidney disease with stage 5 chronic kidney disease or end stage renal disease Current Visit: Yes Status: Acute Plan to address problem: monitor BP on current meds (3) Type 2 diabetes mellitus with diabetic chronic kidney disease Current Visit: Yes Status: Acute Plan to address problem: glucose control as per primary attending (4) Lower extremity edema Current Visit: Yes Status: Acute Plan to address problem: HD today with target UF 2-3L as tolerated Subjective Date of service: 01/28/19 Principal diagnosis: ESRD Interval history: Pt awake, alert, in NAD Objective - Vital Signs Vital signs: Vital Signs - 12hr 01/28/19 01/28/19 05:25 12:19 Temperature 99.1 F 99.0 F Pulse Rate 85 83 Respiratory 18 18 Rate Blood Pressure 137/59 129/57 O2 Sat by Pulse 96 100 Oximetry - General Appearance General appearance: well-developed, well-nourished, appears stated age EENT: ATNC, PERRL, mucous membranes moist Neck: no JVD Respiratory: Present: Clear to Ascultation Cardiology: regular, S1S2 Gastrointestinal: normoactive bowel sounds Integumentary: no rash Neurologic: no focal deficit, alert and oriented x3, strength 5/5, CN 3-12 intact Psychiatric: mood/affect appropriate, cooperative - Lab 01/28/19 06:29 01/26/19 05:38 Most recent lab results Calcium 7.4 mg/dL (8.4-10.2) L 01/26/19 05:38 Medications & Allergies - Medications Allergies/Adverse Reactions: Allergies Penicillins Allergy (Verified 10/30/18 11:25) Unknown Sulfa (Sulfonamide Antibiotics) Allergy (Verified 10/30/18 11:25) Unknown Home Medications: Home Medications Medication Instructions Recorded Confirmed Last Taken Type AtorvaSTATin [Lipitor] 80 mg PO QHS #30 tablet 12/26/18 01/25/19 01/24/19 22:00 Rx Gabapentin 400 mg PO Q8HR #20 cap 12/26/18 01/25/19 01/24/19 14:00 Rx amLODIPine 10 mg PO DAILY #30 tablet 12/26/18 01/25/19 01/24/19 14:00 Rx Furosemide [Lasix TAB] 20 mg PO QDAY #30 tablet 01/19/19 01/25/19 01/24/19 10:00 Rx Sennosides Tab [Senokot] 17.2 mg PO QHS PRN #60 tablet 01/19/19 01/25/19 9 22:00 Rx traZODone [Desyrel] 100 mg PO QHS #30 tablet 01/19/19 01/25/19 01/24/19 22:00 Rx Insulin Regular, Human 10 units SUB-Q QHS 01/25/19 01/25/19 01/24/19 22:00 History Insulin Regular, Human [HumuLIN R] 5 unit SQ AC 01/25/19 01/25/19 01/17/19 History Active Medications: Generic Name Dose Route Start Last Admin Trade Name Freq PRN Reason Stop Dose Admin Acetaminophen 650 mg 01/25/19 22:47 Tylenol PO Q4H PRN Pain MILD(1-3)/Fever >100.5/[place] Amlodipine Besylate 10 mg 01/26/19 10:00 01/27/19 09:05 Amlodipine PO 10 mg DAILY LUCA Administration Atorvastatin Calcium 80 mg 01/26/19 22:00 01/27/19 22:37 Lipitor PO 80 mg QHS LUCA Administration Dextrose 0 ml 01/25/19 23:05 D50w (25gm) Syringe IV Q30MIN PRN Hypoglycemia Gabapentin 400 mg 01/26/19 06:00 01/28/19 05:47 Gabapentin PO 400 mg Q8HR LUCA Administration Heparin Sodium (Porcine) 5,000 unit 01/26/19 23:30 01/28/19 09:29 Heparin SUB-Q 5,000 unit Q12HR LUCA Administration Sodium Chloride 100 mls @ 999 mls/hr 01/26/19 09:42 Nacl 0.9% IV ERNESTINA PRN Hypotension Insulin Human Lispro 0 unit 01/26/19 07:30 01/28/19 11:30 Humalog SUB-Q 3 unit ACHS LUCA Administration Protocol Ondansetron HCl 4 mg 01/25/19 22:47 Zofran IV Q8H PRN Nausea And Vomiting Oxycodone/Acetaminophen 1 tab 01/26/19 01:24 Percocet 5/325 PO Q6H PRN Pain, Moderate (4-6) Sodium Chloride 10 ml 01/26/19 10:00 01/28/19 12:33 Sodium Chloride Flush Syringe 10 Ml IV 10 ml BID LUCA Administration Sodium Chloride 10 ml 01/25/19 22:47 Sodium Chloride Flush Syringe 10 Ml IV PRN PRN LINE FLUSH
[2019-01-28] MEDS: amLODIPine 10 MG TAB PO SCH (15:10)
[2019-01-28] MEDS ORDERED: SODIUM CHLORIDE*PRIMING MACHINE ONLY FOR DIALYSIS MC ONE (18:39)
[2019-01-28 21:03] VITALS: BP 146/78
== END 2019-01-28 21:42 | disposition home or self-care (01) | DRG 640 ==
LOC: ED 17:29 → 3A 20:43 → OBSVTOIN 01-27 16:01
PROVIDERS: ADMIT Internal Medicine; ATTEND Internal Medicine
PROC: 5A1D70Z Performance of Urinary Filtration, Intermittent, Less than 6 Hours Per Day (ICD-10-PCS; principal; 2019-01-26)
PROC: 5A1D70Z Performance of Urinary Filtration, Intermittent, Less than 6 Hours Per Day (ICD-10-PCS; 2019-01-28)
DX: E87.70 Fluid overload, unspecified (principal); N18.6 End stage renal disease; I13.2 Hypertensive heart and chronic kidney disease with heart failure and with stage 5 chronic kidney disease, or end stage renal disease; E11.22 Type 2 diabetes mellitus with diabetic chronic kidney disease; R60.0 Localized edema; K21.9 Gastro-esophageal reflux disease without esophagitis; F32.9 Major depressive disorder, single episode, unspecified; E78.5 Hyperlipidemia, unspecified; I50.9 Heart failure, unspecified; Z82.49 Family history of ischemic heart disease and other diseases of the circulatory system; Z88.0 Allergy status to penicillin; Z88.2 Allergy status to sulfonamides; Z79.899 Other long term (current) drug therapy; Z79.4 Long term (current) use of insulin; Z90.710 Acquired absence of both cervix and uterus; Z83.3 Family history of diabetes mellitus
CPT/HCPCS: 36415; 71045; 80048; 82962; 83880; 85014; 85018; 85025; 87116; 93005; 93010; 96360; G0378; A9270-GY; J1644; J1815; J2405; J7030

== ENCOUNTER 2019-02-02 11:29 | Observation (INO) | payer OTHER ==
--- NOTE | 2019-02-02 11:40 | Emergency Department Report ---
- General Stated complaint: POSS CVA Time Seen by Provider: 02/02/19 11:30 Source: patient, EMS Mode of arrival: Stretcher Limitations: Physical Limitation - History of Present Illness Initial comments: CASANDRA is a 58-year-old female that presents emergency room with complaints of sided weakness, right-sided facial droop. Patient states her symptoms started when she woke up this morning. Patient states she went to bed last noc at 8 p.m., normal. Patient denies chest pain shortness of breath. Patient denies fever and chills. Patient denies headache. She states she has not had dialysis for 1 week. MD Complaint: focal weakness -: Sudden Location: LUE, L hand, R face Severity: severe Consistency: constant Improves with: none Worsens with: none Associated Symptoms: denies: chest pain, confusion, dark stools, diaphoresis, dysuria, easy bruising, fever/chills, headaches, loss of appetite, nausea /vomiting, myalgias, rash, shortness of breath, syncope - Related Data Home Medications Medication Instructions Recorded Confirmed Last Taken Insulin Regular, Human 10 units SUB-Q QHS 01/25/19 02/02/19 01/24/19 22:00 Insulin Regular, Human [HumuLIN R] 5 unit SQ AC 01/25/19 02/02/19 01/17/19 Previous Rx's Medication Instructions Recorded Last Taken Type AtorvaSTATin [Lipitor] 80 mg PO QHS #30 tablet 12/26/18 01/24/19 22:00 Rx Gabapentin 400 mg PO Q8HR #20 cap 12/26/18 01/24/19 14:00 Rx amLODIPine 10 mg PO DAILY #30 tablet 12/26/18 01/24/19 14:00 Rx Furosemide [Lasix TAB] 20 mg PO QDAY #30 tablet 01/19/19 01/24/19 10:00 Rx Sennosides Tab [Senokot] 17.2 mg PO QHS PRN #60 tablet 01/19/19 01/17/19 22:00 Rx traZODone [Desyrel] 100 mg PO QHS #30 tablet 01/19/19 01/24/19 22:00 Rx Allergies Allergy/AdvReac Type Severity Reaction Status Date / Time Penicillins Allergy Unknown Verified 10/30/18 11:25 Sulfa (Sulfonamide Allergy Unknown Verified 10/30/18 11:25 Antibiotics) ED Review of Systems ROS: Stated complaint: POSS CVA Other details as noted in HPI Comment: All other systems reviewed and negative Constitutional: weakness ED Past Medical Hx - Past Medical History Previous Medical History?: Yes Hx Hypertension: Yes Hx Congestive Heart Failure: Yes Hx Diabetes: Yes Hx GERD: Yes Hx Renal Disease: Yes Hx Sickle Cell Disease: No Hx Psychiatric Treatment: Yes (depression) Hx Asthma: No Hx COPD: No Hx Tuberculosis: No Hx HIV: No Additional medical history: high cholesterol, neuropathy, ESRD-T,TH,S - Surgical History Past Surgical History?: Yes Additional Surgical History: , myomectomy, hysterectomy - Family History Family history: no significant - Social History Smoking Status: Never Smoker Substance Use Type: None - Medications Home Medications: Home Medications Medication Instructions Recorded Confirmed Last Taken Type AtorvaSTATin [Lipitor] 80 mg PO QHS #30 tablet 12/26/18 02/02/19 01/24/19 22:00 Rx Gabapentin 400 mg PO Q8HR #20 cap 12/26/18 02/02/19 01/24/19 14:00 Rx amLODIPine 10 mg PO DAILY #30 tablet 12/26/18 02/02/19 01/24/19 14:00 Rx Furosemide [Lasix TAB] 20 mg PO QDAY #30 tablet 01/19/19 02/02/19 01/24/19 10:00 Rx Sennosides Tab [Senokot] 17.2 mg PO QHS PRN #60 tablet 01/19/19 02/02/19 01/17/19 22:00 Rx traZODone [Desyrel] 100 mg PO QHS #30 tablet 01/19/19 01/25/19 01/24/19 22:00 Rx Insulin Regular, Human 10 units SUB-Q QHS 01/25/19 02/02/19 01/24/19 22:00 History Insulin Regular, Human [HumuLIN R] 5 unit SQ AC 01/25/19 02/02/19 01/17/19 History ED Physical Exam - General Limitations: Physical Limitation General appearance: alert, in no apparent distress - Head Head exam: Present: atraumatic, normocephalic - Eye Eye exam: Present: normal appearance, PERRL Pupils: Present: normal accommodation - ENT ENT exam: Present: mucous membranes moist - Neck Neck exam: Present: normal inspection - Respiratory Respiratory exam: Present: normal lung sounds bilaterally. Absent: respiratory distress - Cardiovascular Cardiovascular Exam: Present: regular rate, normal rhythm. Absent: systolic murmur, diastolic murmur, rubs, gallop - GI/Abdominal GI/Abdominal exam: Present: soft, normal bowel sounds - Extremities Exam Extremities exam: Present: normal inspection - Back Exam Back exam: Present: normal inspection - Neurological Exam Neurological exam: Present: alert, oriented X3 - Psychiatric Psychiatric exam: Present: normal affect, normal mood - Skin Skin exam: Present: warm, dry, intact, normal color. Absent: rash - Assessment Assessment Interval: Baseline - Level of Consciousness 1a. Level of Consciousness: alert/keenly responsive - LOC Questions 1b. LOC Questions: answers both correctly - LOC Command 1c. LOC Commands: performs tasks correctly - Best Gaze 2. Best Gaze: normal - Visual 3. Visual: no visual loss - Facial Palsy 4. Facial Palsy: minor paralysis - Motor Arm 5a. Motor Arm Left: no drift 5b. Motor Arm Right: no drift - Motor Leg 6a. Motor Leg Left: some gravity effort 6b. Motor Leg Right: some gravity effort - Limb Ataxia 7. Limb Ataxia: absent - Sensory 8. Sensory: normal - Best Language 9. Best Language: no aphasia - Dysarthria 10. Dysarthria: mild/moderate dysarthria - Extinction and Inattention 11. Extinction/Inattention: no abnormality - Scoring Total Score: 6 Stroke Severity: Moderate Stroke ED Course Vital Signs 02/02/19 02/02/19 02/02/19 11:30 11:55 12:30 Temperature 99.1 F Pulse Rate 77 72 Respiratory 16 16 Rate Blood Pressure 128/60 Blood Pressure 138/63 [Right] O2 Sat by Pulse 100 100 Oximetry 02/02/19 13:30 Temperature 99.1 F Pulse Rate 70 Respiratory 16 Rate Blood Pressure Blood Pressure 132/60 [Right] O2 Sat by Pulse 100 Oximetry - Reevaluation(s) Reevaluation #1: Initial evaluation done. Patient sent to CT. 02/02/19 11:29 Reevaluation #2: Discussed all results with patient. I discussed plan of care outpatient. Patient agrees with plan of care and admission. Patient will be admitted to the hospital service. 02/02/19 12:50 - Consultations Consultation #1: I discussed case with neurologist. Neurologist states the patient is not a candidate for TPA and recommends aspirin and MRI as well as a metabolic workup. 02/02/19 11:56 Consultation #2: Hospital is consult for admission. Hospitalist to admit patient. Bridge orders place. 02/02/19 12:50 ED Medical Decision Making - Lab Data Result diagrams: 02/02/19 11:39 02/02/19 11:39 - EKG Data -: EKG Interpreted by Me EKG shows normal: sinus rhythm, axis, intervals, QRS complexes, ST-T waves Rate: normal - Medical Decision Making CASANDRA is a 58-year-old female that presents emergency room with left-sided weakness and right-sided facial droop and slurred speech. Patient brought in by EMS from her longterm [place]. Patient had dialysis 1 week ago. Based on patient's symptoms, code stroke initiated immediately upon arrival. Patient sent directly to CT and neurologist consult. Rafi-neurologist saw the patient. Neurologist recommends admission and MRI and metabolic workup. CT head negative for acute findings. Labs consistent with chronic kidney disease. Patient does not require emergent dialysis. Patient admitted to the hospitalist service. - Differential Diagnosis metabolic encephalopathy, weakness, slurred speech, facial droop, CVA Critical Care Time: Yes Critical care time in (mins) excluding proc time.: 45 Critical care attestation.: If time is entered above; I have spent that time in minutes in the direct care of this critically ill patient, excluding procedure time. Critical Care Time: 45 minutes ED Disposition Clinical Impression: Left-sided weakness, Facial droop, Slurred speech, ESRD (end stage renal disease), Missed dialysis, Anemia in chronic illness, Dysarthria, Elevated troponin, Acidosis CKD (chronic kidney disease) Qualifiers: Chronic kidney disease stage: on chronic dialysis Qualified Code(s): N18.6 - End stage renal disease Disposition: OP ADMIT IP TO THIS HOSP Is pt being admited?: Yes Does the pt Need Aspirin: No Condition: Critical Time of Disposition: 12:50
[2019-02-02] MEDS ORDERED: ASPIRIN 325 MG TAB ONE (12:05)
[2019-02-02] MEDS ORDERED: ASPIRIN 325 MG TAB PO ONE (12:07)
[2019-02-02 12:16] LABS: Hematocrit 26.8 % (30.3-42.9); Hemoglobin 8.5 gm/dl (10.1-14.3); Mean Corpuscular HGB Conc 32 % (30-34); Mean Corpuscular Volume 79 fl (79-97); Platelet Count 412 K/mm3 (140-440); Red Blood Count 3.41 M/mm3 (3.65-5.03)
[2019-02-02 12:18] LABS: INR 0.97 (0.87-1.13)
[2019-02-02 12:19] LABS: Partial Thromboplastin Time 30.2 Sec. (24.2-36.6)
[2019-02-02 12:29] LABS: Calcium 7.5 mg/dL (8.4-10.2)
--- NOTE | 2019-02-02 12:57 | Emergency Department Report ---
ED Neuro Deficit HPI - General Chief Complaint: Neuro Symptoms/Deficit Stated Complaint: POSS CVA Time Seen by Provider: 02/02/19 11:30 Source: patient, EMS Mode of arrival: Stretcher Limitations: Physical Limitation - History of Present Illness Initial Comments: [facility] TeleStroke Metrics: LKW: 2030 last night Door Time: 1129 [facility] Contacted: 1130 [facility] at Bedside: 1138 NIHSS: 1150 Decision on Alteplase: Not to give as her last known well time was last night. Interventional Candidate: Not a candidate as her symptoms are not consistent with a large vessel proximal occlusion. Chief Complaint: Facial twitching and slurred speech HPI: Asked to see this patient in emergent telemedicine consultation utilizing interactive audio and video technologies. Consultation was performed with assistance of ancillary / medical staff at bedside. Verbal consent to perform the examination with telemedicine was obtained. Patient agreed to proceed with the consultation for acute stroke protocol. 58-year-old right-handed -[place] female who comes to the emergency room by EMS as a stroke alert for facial twitching and slurred speech. Patient does not take any aspirin at baseline. Apparently, the last time the patient got hemodialysis was last on 01/27. She missed her sessions on Thursday and Thursday. Patient states that she went to bed completely at her baseline 8:30 PM last night. Her caregiver came by and woke up around 7:30 AM. She was noted to have some twitching on the right side of her face and some shaking type movement. Patient also reported on and off slurred speech as well. EMS was called. They reported some slurred speech while in route. PMH: Hypertension, end-stage renal disease on hemodialysis on Thursday/Thu/Thursday, hyperlipidemia, diabetes mellitus with peripheral neuropathy, and coronary artery disease with prior AK SOC: Negative x3. Patient lives at some type of assisted living facility with a roommate. FMH: Negative for stroke. ROS: 13 point review of systems were reviewed with the patient, and are all negative with the exception of the aforementioned in the history of present illness. VS: Nothing charted yet Exam: Patient is in no apparent distress. Patient appears as stated age. No obvious acute respiratory or cardiac distress. Patient is well groomed and well-nourished. 1a- LOC: Keenly responsive - 0 1b- LOC questions: Answers both questions correctly - 0 1c- LOC commands- Performs both tasks correctly- 0 2- Gaze: Normal; no gaze paresis or gaze deviation - 0 3- Visual Diamond: normal, no Visual field deficit - 0 4- Facial movements: no facial palsy - 0 5- Upper limb motor - no drift - 0 6- Lower limb motor bilateral leg drifts - 2 7- Limb Coordination: absent ataxia - 0 8- Sensory: no sensory loss - 0 9- Language - No aphasia - 0 10- Speech - Mild dysarthria - 1 11- Neglect / Extinction - none found - 0 NIHSS score: 3 Diagnostic Data: CT of the head showed no acute intracranial process Medical Data Reviewed: 1.Data?reviewed include clinical labs, radiology,?and medical tests; 2.Tests?results discussed w/performing or interpreting physician; 3.Obtaining/reviewing old medical records; 4.Obtaining?case history from another source; 5.Independent?review of image, tracing, or specimen. Medical Decision Making: - Extensive number of diagnosis or management options are considered below. - Extensive amount of complex data reviewed. - High risk of complication and/or morbidity or mortality are associated with differential diagnostic considerations below. - There may be?uncertain?outcome and increased probability of prolonged functional impairment or high probability of severe prolonged functional impairment associated with some of these differential diagnosis. Differential Diagnosis for Stroke: 1.?Cardioembolic?stroke 2. Small vessel disease/lacune 3. Thromboembolic, [id number] mechanism 4.?Hypercoagulable?state-related infarct 5. Transient ischemic attack 6. Thrombotic mechanism, large artery disease Assessment: 1. Facial twitching and slurred speech 2. Hypertension 3. End-stage renal disease on hemodialysis 4. Hyperlipidemia 5. Diabetes mellitus with peripheral neuropathy 6. Coronary artery disease with prior AK Recommendations: Patient can be admitted to the hospital for further work-up of her symptoms. Metabolic and infectious work-up per primary team. Hopefully, the patient will improve after having some dialysis sessions. Check MRI brain without contrast to rule out any acute intracranial process. Continue supportive care. Thank you for allowing [facility] to participate in the care of your patient. Please call me, Dr. Hernandez, with any questions at [phone]. Case discussed with the ER staff and ER attending. Critical Care notation: I was called to see this critical patient emergently. I personally evaluated this critical patient for acute stroke evaluation, and determining their eligibility for IV Alteplase and interventional therapies. I have spent approximately 15 minutes with the patient, including time at bedside, time discussing the case with other physicians, reviewing plan of care, and time independently reviewing the records and scans. Severity: severe - Related Data Home Medications: Home Medications Medication Instructions Recorded Confirmed Last Taken Insulin Regular, Human 10 units SUB-Q QHS 01/25/19 01/25/19 01/24/19 22:00 Insulin Regular, Human [HumuLIN R] 5 unit SQ AC 01/25/19 01/25/19 01/17/19 Previous Rx's Medication Instructions Recorded Last Taken Type AtorvaSTATin [Lipitor] 80 mg PO QHS #30 tablet 12/26/18 01/24/19 22:00 Rx Gabapentin 400 mg PO Q8HR #20 cap 12/26/18 01/24/19 14:00 Rx amLODIPine 10 mg PO DAILY #30 tablet 12/26/18 01/24/19 14:00 Rx Furosemide [Lasix TAB] 20 mg PO QDAY #30 tablet 01/19/19 01/24/19 10:00 Rx Sennosides Tab [Senokot] 17.2 mg PO QHS PRN #60 tablet 01/19/19 01/17/19 22:00 Rx traZODone [Desyrel] 100 mg PO QHS #30 tablet 01/19/19 01/24/19 22:00 Rx Allergies/Adverse Reactions: Allergies Allergy/AdvReac Type Severity Reaction Status Date / Time Penicillins Allergy Unknown Verified 10/30/18 11:25 Sulfa (Sulfonamide Allergy Unknown Verified 10/30/18 11:25 Antibiotics) ED Review of Systems ROS: Stated complaint: POSS CVA Other details as noted in HPI Constitutional: weakness ED Past Medical Hx - Past Medical History Previous Medical History?: Yes Hx Hypertension: Yes Hx Congestive Heart Failure: Yes Hx Diabetes: Yes Hx GERD: Yes Hx Renal Disease: Yes Hx Sickle Cell Disease: No Hx Psychiatric Treatment: Yes (depression) Hx Asthma: No Hx COPD: No Hx Tuberculosis: No Hx HIV: No Additional medical history: high cholesterol, neuropathy, ESRD-T,TH,S - Surgical History Past Surgical History?: Yes Additional Surgical History: , myomectomy, hysterectomy - Social History Smoking Status: Never Smoker Substance Use Type: None - Medications Home Medications: Home Medications Medication Instructions Recorded Confirmed Last Taken Type AtorvaSTATin [Lipitor] 80 mg PO QHS #30 tablet 12/26/18 01/25/19 01/24/19 22:00 Rx Gabapentin 400 mg PO Q8HR #20 cap 12/26/18 01/25/19 01/24/19 14:00 Rx amLODIPine 10 mg PO DAILY #30 tablet 12/26/18 01/25/19 01/24/19 14:00 Rx Furosemide [Lasix TAB] 20 mg PO QDAY #30 tablet 01/19/19 01/25/19 01/24/19 10:00 Rx Sennosides Tab [Senokot] 17.2 mg PO QHS PRN #60 tablet 01/19/19 01/25/19 01/17/19 22:00 Rx traZODone [Desyrel] 100 mg PO QHS #30 tablet 01/19/19 01/25/19 01/24/19 22:00 Rx Insulin Regular, Human 10 units SUB-Q QHS 01/25/19 01/25/19 01/24/19 22:00 History Insulin Regular, Human [HumuLIN R] 5 unit SQ AC 01/25/19 01/25/19 01/17/19 History ED Neuro Physical Exam - General Limitations: Physical Limitation General appearance: alert, in no apparent distress Suspected Stroke: No ED Course Vital Signs 02/02/19 02/02/19 11:30 11:55 Temperature 99.1 F Pulse Rate 77 Respiratory 16 Rate Blood Pressure 128/60 O2 Sat by Pulse 100 Oximetry - Lab Data Result diagrams: 02/02/19 11:39 02/02/19 11:39 Lab Results 02/02/19 02/02/19 02/02/19 Range/Units 11:39 11:39 11:39 WBC 9.8 (4.5-11.0) K/mm3 RBC 3.41 L (3.65-5.03) M/mm3 Hgb 8.5 L (10.1-14.3) gm/dl Hct 26.8 L (30.3-42.9) % MCV 79 (79-97) fl MCH 25 L (28-32) pg MCHC 32 (30-34) % RDW 14.0 (13.2-15.2) % Plt Count 412 (140-440) K/mm3 Lymph % (Auto) Store Team Leader [place] % (Auto) Store Team Leader Eos % (Auto) Store Team Leader Baso % (Auto) Store Team Leader Lymph # Store Team Leader Gosper # Store Team Leader Eos # Store Team Leader Baso # Store Team Leader Seg Neutrophils % Store Team Leader Seg Neutrophils # Store Team Leader PT 12.8 (12.2-14.9) Sec. INR 0.97 (0.87-1.13) APTT 30.2 (24.2-36.6) Sec. Thrombin Time (15.1-19.6) Sec. Sodium 140 (137-145) mmol/L Potassium 4.3 (3.6-5.0) mmol/L Chloride 107.2 H (98-107) mmol/L Carbon Dioxide 18 L (22-30) mmol/L Anion Gap 19 mmol/L BUN 30 H (7-17) mg/dL Creatinine 2.9 H (0.7-1.2) mg/dL Estimated GFR 20 ml/min BUN/Creatinine Ratio 10 % Glucose 157 H (65-100) mg/dL Calcium 7.5 L (8.4-10.2) mg/dL Troponin T 0.216 H* (0.00-0.029) ng/mL 02/02/19 Range/Units 11:39 WBC (4.5-11.0) K/mm3 RBC (3.65-5.03) M/mm3 Hgb (10.1-14.3) gm/dl Hct (30.3-42.9) % MCV (79-97) fl MCH (28-32) pg MCHC (30-34) % RDW (13.2-15.2) % Plt Count (140-440) K/mm3 Lymph % (Auto) [place] % (Auto) Eos % (Auto) Baso % (Auto) Lymph # [place] # Eos # Baso # Seg Neutrophils % Seg Neutrophils # PT (12.2-14.9) Sec. INR (0.87-1.13) APTT (24.2-36.6) Sec. Thrombin Time 17.7 (15.1-19.6) Sec. Sodium (137-145) mmol/L Potassium (3.6-5.0) mmol/L Chloride (98-107) mmol/L Carbon Dioxide (22-30) mmol/L Anion Gap mmol/L BUN (7-17) mg/dL Creatinine (0.7-1.2) mg/dL Estimated GFR ml/min BUN/Creatinine Ratio % Glucose (65-100) mg/dL Calcium (8.4-10.2) mg/dL Troponin T (0.00-0.029) ng/mL Critical care attestation.: If time is entered above; I have spent that time in minutes in the direct care of this critically ill patient, excluding procedure time. ED Disposition Clinical Impression: Dysarthria Disposition: [id number] OP ADMIT IP TO THIS HOSP Is pt being admited?: Yes Does the pt Need Aspirin: No Condition: Critical
[2019-02-02 13:01] LABS: Chol/HDL Ratio 3.02 %
--- NOTE | 2019-02-02 13:30 | History and Physical Report ---
History of Present Illness Date of admission: 02/02/19 12:49 Chief complaint: My caregiver was worried about me History of present illness: 58 YO Female Assisted Living Facility Resident at [place] with ESRD on HD(T,R,Sa), HLD, CHF, HTN, Depression, GERD, DM presents to ED for evaluation. Pt reports being in her usual state of health. Pt states that she feels fine, but her caregiver at [place] was concerned because she was "twitching". EMS notified and upon arrival the patient was found to be in distress. A code stroke was called and the patient was transported to [facility]. PT seen and evaluated in ED. Teleneurology was notified. Pt was not found to be a candidate for TPA. Pt found to have ESRD. Nephrology consulted in ED. Pt does not have neurologic deficit at time of my exam. Pt placed in observation status and admitted to medical floor. Prior admission on 01/27/19 reviewed. All listed medication reconciled at time of admission. Pt denies fever, chills, CP, Palpitations, NVD, Trauma, Syncope, BRBPR, Productive cough, new onset weakness, or recent ill contacts. Past History Past Medical History: other (see nhpi) Past Surgical History: , hysterectomy, Other (Myomectomy) Social history: . denies: smoking, alcohol abuse, prescription drug abuse Family history: hypertension Medications and Allergies Allergies Allergy/AdvReac Type Severity Reaction Status Date / Time Penicillins Allergy Unknown Verified 10/30/18 11:25 Sulfa (Sulfonamide Allergy Unknown Verified 10/30/18 11:25 Antibiotics) Home Medications Medication Instructions Recorded Confirmed Last Taken Type AtorvaSTATin [Lipitor] 80 mg PO QHS #30 tablet 12/26/18 02/02/19 01/24/19 22:00 Rx Gabapentin 400 mg PO Q8HR #20 cap 12/26/18 02/02/19 01/24/19 14:00 Rx amLODIPine 10 mg PO DAILY #30 tablet 12/26/18 02/02/19 01/24/19 14:00 Rx Furosemide [Lasix TAB] 20 mg PO QDAY #30 tablet 01/19/19 02/02/19 01/24/19 10:00 Rx Sennosides Tab [Senokot] 17.2 mg PO QHS PRN #60 tablet 01/19/19 02/02/19 01/17/19 22:00 Rx traZODone [Desyrel] 100 mg PO QHS #30 tablet 01/19/19 01/25/19 01/24/19 22:00 Rx Insulin Regular, Human 10 units SUB-Q QHS 01/25/19 02/02/19 01/24/19 22:00 History Insulin Regular, Human [HumuLIN R] 5 unit SQ AC 01/25/19 02/02/19 01/17/19 History Review of Systems Constitutional: no weight loss, no weight gain, no fever, no chills Ears, nose, mouth and throat: no ear pain, no ear discharge, no tinnitis, no decreased hearing, no nose pain Breasts: no change in shape, no swelling, no mass Cardiovascular: no chest pain, no orthopnea, no palpitations, no rapid/irregular heart beat Respiratory: no cough, no cough with sputum, no excessive sputum, no hemoptysis Gastrointestinal: no abdominal pain, no nausea, no vomiting, no constipation, no change in bowel habits Genitourinary Female: no pelvic pain, no flank pain, no menorrhagia, no dysuria, no urinary frequency, no urgency Rectal: no pain, no incontinence, no bleeding Musculoskeletal: no neck stiffness, no neck pain, no shooting arm pain, no arm numbness/tingling, no shooting leg pain, no leg numbness/tingling Integumentary: no rash, no pruritis, no redness, no sores, no wounds Neurological: no transient paralysis, no paralysis, no weakness, no parathesias, no numbness, no tingling, no seizures Psychiatric: no anxiety, no memory loss, no change in sleep habits, no sleep disturbances, no insomnia, no disorientation Endocrine: no cold intolerance, no heat intolerance, no excessive thirst, no polydipsia, no polyuria, no excessive sweating Hematologic/Lymphatic: no easy bruising, no easy bleeding, no lymphadenopathy, no lymphedema Allergic/Immunologic: no urticaria, no allergic rhinitis, no persistent infections, no anaphylaxis Exam - Constitutional Vitals: Temp Pulse Resp BP Pulse Ox 99.1 F 77 16 128/60 100 02/02/19 11:55 02/02/19 11:30 02/02/19 11:30 02/02/19 11:30 02/02/19 11:30 General appearance: Present: no acute distress, well-nourished - EENT Eyes: Present: PERRL ENT: hearing intact, clear oral mucosa - Neck Neck: Present: supple, normal ROM - Respiratory Respiratory effort: normal Respiratory: bilateral: CTA - Cardiovascular Heart Sounds: Present: S1 & S2. Absent: rub, click - Extremities Extremities: pulses symmetrical, No edema Peripheral Pulses: within normal limits - Abdominal General gastrointestinal: Present: soft, non-tender, non-distended, normal bowel sounds Female genitourinary: Present: normal - Integumentary Integumentary: Present: clear, warm, dry - Musculoskeletal Musculoskeletal: gait normal, strength equal bilaterally - Psychiatric Psychiatric: appropriate mood/affect, intact judgment & insight - Neurologic Neurologic: CNII-XII intact, moves all extremities Results - Labs CBC & Chem 7: 02/02/19 11:39 02/02/19 11:39 Labs: Abnormal lab results 02/02/19 02/02/19 Range/Units 11:39 11:39 RBC 3.41 L (3.65-5.03) M/mm3 Hgb 8.5 L (10.1-14.3) gm/dl Hct 26.8 L (30.3-42.9) % MCH 25 L (28-32) pg Chloride 107.2 H (98-107) mmol/L Carbon Dioxide 18 L (22-30) mmol/L BUN 30 H (7-17) mg/dL Creatinine 2.9 H (0.7-1.2) mg/dL Glucose 157 H (65-100) mg/dL Calcium 7.5 L (8.4-10.2) mg/dL Troponin T 0.216 H* (0.00-0.029) ng/mL Cholesterol 206 H (50-199) mg/dL HDL Cholesterol 68 H (40-59) mg/dL Assessment and Plan - Patient Problems (1) ESRD (end stage renal disease) Current Visit: Yes Status: Acute Plan to address problem: Nephrology consulted in ED, dialysis as per renal team, strict I/O, daily weight, avoid nephrotoxic agents (2) Acidosis Current Visit: Yes Status: Acute Plan to address problem: Urgent dialysis, IV bicarbonate, IVF resuscitation therapy as tolerated. (3) Debility Current Visit: Yes Status: Acute Plan to address problem: PT consulted, supportive care (4) DVT prophylaxis Current Visit: Yes Status: Acute Plan to address problem: SCD to BLE while in bed.
[2019-02-02] MEDS ORDERED: SENNOSIDES 8.6 MG TAB PO PRN (13:33)
[2019-02-02] MEDS ORDERED: SODIUM BICARB 8.4% 50 MEQ/50 ML SYRINGE IV ONE (14:39)
[2019-02-02] MEDS: GABAPENTIN 400 MG CAP PO SCH ×2 (16:03→22:12)
[2019-02-02] MEDS: traZODone 100 MG TAB PO SCH (22:12)
[2019-02-03] MEDS: FUROSEMIDE 20 MG TAB PO SCH (06:45)
[2019-02-03] MEDS: GABAPENTIN 400 MG CAP PO SCH ×3 (07:01→23:19)
--- NOTE | 2019-02-03 08:48 | Progress Note ---
Assessment and Plan Assessment and plan: ESRD. Continue hemodialysis per nephrology. Patient reportedly with last hemodialysis 01/27/19. ?Myoclonic jerks. ? Fasciculations from electrolyte imbalances. Continue hemodialysis per nephrology. Patient does not appear to have any lateralizing signs or symptoms or findings suggestive of CVA. Debility. PT/OT evaluation. Hyperlipidemia. Continue statins. Hypertension. Resume antihypertensive medications. GERD. Continue PPI. Diabetes mellitus type 2. Continue Accu-Cheks and sliding scale insulin. Elevated troponin. Troponin appears to be chronically elevated. Etiology likely secondary to renal disease. Patient denies chest pain. History Interval history: New issues overnight Hospitalist Physical - Constitutional Vitals: Temp Pulse Resp BP Pulse Ox 98.8 F 67 16 124/57 97 02/03/19 05:21 02/03/19 05:21 02/03/19 05:21 02/03/19 05:21 02/03/19 05:21 General appearance: Present: no acute distress, well-nourished - EENT Eyes: Present: PERRL, EOM intact ENT: hearing intact, clear oral mucosa, dentition normal - Neck Neck: Present: supple, normal ROM - Respiratory Respiratory effort: normal Respiratory: bilateral: CTA - Cardiovascular Rhythm: regular Heart Sounds: Present: S1 & S2. Absent: gallop, rub - Extremities Extremities: no ischemia, No edema, Full ROM - Abdominal General gastrointestinal: soft, non-tender, non-distended, normal bowel sounds - Integumentary Integumentary: Present: clear, warm, dry - Neurologic Neurologic: CNII-XII intact, moves all extremities Results - Labs CBC & Chem 7: 02/02/19 11:39 02/02/19 11:39 Labs: Laboratory Last Values WBC 9.8 K/mm3 (4.5-11.0) 02/02/19 11:39 RBC 3.41 M/mm3 (3.65-5.03) L 02/02/19 11:39 Hgb 8.5 gm/dl (10.1-14.3) L 02/02/19 11:39 Hct 26.8 % (30.3-42.9) L 02/02/19 11:39 MCV 79 fl (79-97) 02/02/19 11:39 MCH 25 pg (28-32) L 02/02/19 11:39 MCHC 32 % (30-34) 02/02/19 11:39 RDW 14.0 % (13.2-15.2) 02/02/19 11:39 Plt Count 412 K/mm3 (140-440) 02/02/19 11:39 Lymph % (Auto) Geological Engineer 02/02/19 11:39 [place] % (Auto) Geological Engineer 02/02/19 11:39 Eos % (Auto) Geological Engineer 02/02/19 11:39 Baso % (Auto) Geological Engineer 02/02/19 11:39 Lymph # Geological Engineer 02/02/19 11:39 [place] # Geological Engineer 02/02/19 11:39 Eos # Geological Engineer 02/02/19 11:39 Baso # Geological Engineer 02/02/19 11:39 Seg Neutrophils % Geological Engineer 02/02/19 11:39 Seg Neutrophils # Geological Engineer 02/02/19 11:39 PT 12.8 Sec. (12.2-14.9) 02/02/19 11:39 INR 0.97 (0.87-1.13) 02/02/19 11:39 APTT 30.2 Sec. (24.2-36.6) 02/02/19 11:39 Thrombin Time 17.7 Sec. (15.1-19.6) 02/02/19 11:39 Sodium 140 mmol/L (137-145) 02/02/19 11:39 Potassium 4.3 mmol/L (3.6-5.0) 02/02/19 11:39 Chloride 107.2 mmol/L (98-107) H 02/02/19 11:39 Carbon Dioxide 18 mmol/L (22-30) L 02/02/19 11:39 Anion Gap 19 mmol/L 02/02/19 11:39 BUN 30 mg/dL (7-17) H 02/02/19 11:39 Creatinine 2.9 mg/dL (0.7-1.2) H 02/02/19 11:39 Estimated GFR 20 ml/min 02/02/19 11:39 BUN/Creatinine Ratio 10 % 02/02/19 11:39 Glucose 157 mg/dL (65-100) H 02/02/19 11:39 POC Glucose 158 (70-105) H 02/03/19 08:09 Calcium 7.5 mg/dL (8.4-10.2) L 02/02/19 11:39 Troponin T 0.216 ng/mL (0.00-0.029) H* 02/02/19 11:39 Triglycerides 139 mg/dL (2-149) 02/02/19 11:39 Cholesterol 206 mg/dL (50-199) H 02/02/19 11:39 LDL Cholesterol Direct 124 mg/dL (50-130) 02/02/19 11:39 HDL Cholesterol 68 mg/dL (40-59) H 02/02/19 11:39 Cholesterol/HDL Ratio 3.02 % 02/02/19 11:39 Active Medications - Current Medications Current Medications: Generic Name Dose Route Start Last Admin Trade Name Freq PRN Reason Stop Dose Admin Amlodipine Besylate 10 mg 02/03/19 10:00 Amlodipine PO DAILY [facility] Atorvastatin Calcium 80 mg 02/02/19 22:00 02/02/19 22:12 Lipitor PO 80 mg QHS [facility] Administration Furosemide 20 mg 02/03/19 06:00 02/03/19 06:45 Lasix PO 20 mg DAILY@0600 [facility] Administration Gabapentin 400 mg 02/02/19 14:00 02/03/19 07:01 Gabapentin PO Not Given Q8HR [facility] Senna 17.2 mg 02/02/19 13:33 Senokot PO QHS PRN Constipation Trazodone HCl 100 mg 02/02/19 22:00 02/02/19 22:12 Desyrel PO 100 mg QHS [facility] Administration
[2019-02-03] MEDS ORDERED: SODIUM CHLORIDE 0.9% 100 ML IV PRN (09:00)
[2019-02-03] MEDS: amLODIPine 10 MG TAB PO SCH (09:24)
[2019-02-03] MEDS ORDERED: ALTEPLASE 2 MG INJ IV STA (10:07)
[2019-02-03] MEDS ORDERED: SODIUM CHLORIDE*PRIMING MACHINE ONLY FOR DIALYSIS MC ONE (10:14)
[2019-02-03] MEDS ORDERED: WATER FOR INJ Sterile (PF) 10 ML ONE (10:14)
[2019-02-03] MEDS: INSULIN REGULAR, HUMAN 100 UNITS/1 ML SUB-Q SCH ×3 (11:29→23:22)
--- NOTE | 2019-02-03 13:25 | Consultation ---
History of Present Illness - Reason for Consult end stage renal disease - History of Present Illness This is a very pleasant 59-year-old -[place] female with a past medical history of advanced chronic kidney disease in the setting of biopsy-proven diabetic multiple sclerosis, who presents to emergency department secondary to increased weakness and fatigue and long-term facility. Patient has not been dialyzed as an outpatient as apparently she has had issues with transportation. She is now set up with hemodialysis as an outpatient at our [facility] dialysis unit. She is scheduled for starting Thursday schedule at 10:30 AM. In fact today was supposed to be her first day at the unit however because of the aforementioned complaints patient came into the emergency department to be evaluated. I am seeing patient this afternoon on the hemodialysis machine. She is tolerating her dialysis session well without any acute complaints. She is using her right IJ permacath this afternoon. Flow was sluggish earlier in treatment so she did require an alteplase dwell, after which the catheter seems to be working now at this time. Past History Past Medical History: diabetes, hypertension, renal failure, other (see nhpi) Past Surgical History: , hysterectomy, Other (Myomectomy) Social history: . denies: smoking, alcohol abuse, prescription drug abuse Family history: hypertension Medications and Allergies Allergies Allergy/AdvReac Type Severity Reaction Status Date / Time Penicillins Allergy Unknown Verified 10/30/18 11:25 Sulfa (Sulfonamide Allergy Unknown Verified 10/30/18 11:25 Antibiotics) Home Medications Medication Instructions Recorded Confirmed Last Taken Type AtorvaSTATin [Lipitor] 80 mg PO QHS #30 tablet 12/26/18 02/02/19 01/24/19 22:00 Rx Gabapentin 400 mg PO Q8HR #20 cap 12/26/18 02/02/19 01/24/19 14:00 Rx amLODIPine 10 mg PO DAILY #30 tablet 12/26/18 02/02/19 01/24/19 14:00 Rx Furosemide [Lasix TAB] 20 mg PO QDAY #30 tablet 01/19/19 02/02/19 01/24/19 10:00 Rx Sennosides Tab [Senokot] 17.2 mg PO QHS PRN #60 tablet 01/19/19 02/02/19 01/17/19 22:00 Rx traZODone [Desyrel] 100 mg PO QHS #30 tablet 01/19/19 01/25/19 01/24/19 22:00 Rx Insulin Regular, Human 10 units SUB-Q QHS 01/25/19 02/02/19 01/24/19 22:00 History Insulin Regular, Human [HumuLIN R] 5 unit SQ AC 01/25/19 02/02/19 01/17/19 History Active Meds: Active Medications Amlodipine Besylate (Amlodipine) 10 mg PO DAILY [facility] Last Admin: 02/03/19 09:24 Dose: Not Given Documented by: Atorvastatin Calcium (Lipitor) 80 mg PO QHS [facility] Last Admin: 02/02/19 22:12 Dose: 80 mg Documented by: Furosemide (Lasix) 20 mg PO DAILY@0600 [facility] Last Admin: 02/03/19 06:45 Dose: 20 mg Documented by: Gabapentin (Gabapentin) 400 mg PO Q8HR [facility] Last Admin: 02/03/19 07:01 Dose: Not Given Documented by: Sodium Chloride (Nacl 0.9%) 100 mls @ 999 mls/hr IV ERNESTINA PRN PRN Reason: Hypotension Insulin Human Regular (Humulin R) 0 units SUB-Q [facility]; Protocol Last Admin: 02/03/19 11:29 Dose: Not Given Documented by: Senna (Senokot) 17.2 mg PO QHS PRN PRN Reason: Constipation Trazodone HCl (Desyrel) 100 mg PO QHS [facility] Last Admin: 02/02/19 22:12 Dose: 100 mg Documented by: Review of Systems All systems: negative Constitutional: fatigue, weakness Exam - Vital Signs Vital signs: Vital Signs Pulse Resp BP Pulse Ox 77 16 128/60 100 02/02/19 11:30 02/02/19 11:30 02/02/19 11:30 02/02/19 11:30 - General Appearance General appearance: well-developed, well-nourished, appears stated age EENT: ATNC, PERRL Neck: Present: neck supple, trachea midline Respiratory: Clear to Ascultation Heart: regular, S1S2 Gastrointestinal: Present: normal, normoactive bowel sounds Integumentary: no rash Neurologic: no focal deficit, alert and oriented x3 Musculoskeletal: Present: other (+edema ) Psychiatric: mood/affect appropriate, cooperative Results - Lab Results 02/02/19 11:39 02/02/19 11:39 Most recent lab results Calcium 7.5 mg/dL (8.4-10.2) L 02/02/19 11:39 Assessment and Plan - Patient Problems (1) ESRD (end stage renal disease) Current Visit: Yes Status: Acute Plan to address problem: Maintain on inpatient TTS schedule. Upon discharge, patient is to follow up with the [facility] dialysis unit. (2) Hypertensive chronic kidney disease with stage 5 chronic kidney disease or end stage renal disease Current Visit: No Status: Chronic Plan to address problem: Monitor on current regimen. (3) Type 2 diabetes mellitus with diabetic chronic kidney disease Current Visit: No Status: Chronic Qualifiers: Chronic kidney disease stage: on chronic dialysis Plan to address problem: DM management per primary team. (4) Anemia in chronic illness Current Visit: Yes Status: Chronic Plan to address problem: ALBERTO therapy with HD to maintain goal Hgb 10-11.5.
[2019-02-03] MEDS: traZODone 100 MG TAB PO SCH (23:20)
[2019-02-04] MEDS: GABAPENTIN 400 MG CAP PO SCH ×2 (06:13→13:48)
[2019-02-04] MEDS: FUROSEMIDE 20 MG TAB PO SCH (06:13)
[2019-02-04] MEDS: INSULIN REGULAR, HUMAN 100 UNITS/1 ML SUB-Q SCH ×3 (07:30→15:37)
--- NOTE | 2019-02-04 08:06 | Progress Note ---
Assessment and Plan - Patient Problems (1) ESRD (end stage renal disease) Current Visit: Yes Status: Acute Plan to address problem: Maintain on inpatient TTS schedule. Upon discharge, patient is to follow up with the [facility] dialysis unit. From a nephrology standpoint, once all appropriate neurologic workup is completed per primary attending recommendations, she is stable to go home. (2) Hypertensive chronic kidney disease with stage 5 chronic kidney disease or end stage renal disease Current Visit: No Status: Chronic Plan to address problem: Monitor on current regimen. (3) Type 2 diabetes mellitus with diabetic chronic kidney disease Current Visit: No Status: Chronic Qualifiers: Chronic kidney disease stage: on chronic dialysis Plan to address problem: DM management per primary team. (4) Anemia in chronic illness Current Visit: Yes Status: Chronic Plan to address problem: ALBERTO therapy with HD to maintain goal Hgb 10-11.5. Subjective Date of service: 02/04/19 Interval history: No acute issues overnight. No acute myoclonic jerks or other neurologic changes. Patient tolerated hemodialysis well without any acute issues. Objective - Vital Signs Vital signs: Vital Signs - 12hr 02/03/19 02/03/19 02/03/19 20:58 21:00 21:30 Temperature 97.8 F Pulse Rate 80 Respiratory 20 18 Rate Blood Pressure 135/60 O2 Sat by Pulse 100 100 Oximetry 02/04/19 04:22 Temperature 98.3 F Pulse Rate 80 Respiratory 20 Rate Blood Pressure 133/61 O2 Sat by Pulse 100 Oximetry - General Appearance General appearance: well-developed, well-nourished, appears stated age EENT: ATNC, PERRL Neck: no JVD, no thyromegaly Respiratory: Present: Clear to Ascultation, Normal Exam Cardiology: regular, S1S2 Gastrointestinal: normal, normoactive bowel sounds Integumentary: no rash, warm and dry Neurologic: alert and oriented x3 Musculoskeletal: deferred Psychiatric: mood/affect appropriate, cooperative - Lab 02/02/19 11:39 02/02/19 11:39 Most recent lab results Calcium 7.5 mg/dL (8.4-10.2) L 02/02/19 11:39 Medications & Allergies - Medications Allergies/Adverse Reactions: Allergies Penicillins Allergy (Verified 10/30/18 11:25) Unknown Sulfa (Sulfonamide Antibiotics) Allergy (Verified 10/30/18 11:25) Unknown Home Medications: Home Medications Medication Instructions Recorded Confirmed Last Taken Type AtorvaSTATin [Lipitor] 80 mg PO QHS #30 tablet 12/26/18 02/02/19 01/24/19 22:00 Rx Gabapentin 400 mg PO Q8HR #20 cap 12/26/18 02/02/19 01/24/19 14:00 Rx amLODIPine 10 mg PO DAILY #30 tablet 12/26/18 02/02/19 01/24/19 14:00 Rx Furosemide [Lasix TAB] 20 mg PO QDAY #30 tablet 01/19/19 02/02/19 01/24/19 10:00 Rx Sennosides Tab [Senokot] 17.2 mg PO QHS PRN #60 tablet 01/19/19 02/02/19 01/17/19 22:00 Rx traZODone [Desyrel] 100 mg PO QHS #30 tablet 01/19/19 01/25/19 01/24/19 22:00 Rx Insulin Regular, Human 10 units SUB-Q QHS 01/25/19 02/02/19 01/24/19 22:00 History Insulin Regular, Human [HumuLIN R] 5 unit SQ AC 01/25/19 02/02/19 01/17/19 History Active Medications: Generic Name Dose Route Start Last Admin Trade Name Freq PRN Reason Stop Dose Admin Amlodipine Besylate 10 mg 02/03/19 10:00 02/03/19 09:24 Amlodipine PO Not Given DAILY [facility] Atorvastatin Calcium 80 mg 02/02/19 22:00 02/03/19 23:19 Lipitor PO 80 mg QHS [facility] Administration Furosemide 20 mg 02/03/19 06:00 02/04/19 06:13 Lasix PO 20 mg DAILY@0600 [facility] Administration Gabapentin 400 mg 02/02/19 14:00 02/04/19 06:13 Gabapentin PO 400 mg Q8HR [facility] Administration Sodium Chloride 100 mls @ 999 mls/hr 02/03/19 09:00 Nacl 0.9% IV ERNESTINA PRN Hypotension Insulin Human Regular 0 units 02/03/19 11:30 02/03/19 23:22 Humulin R SUB-Q 6 units ACHS [facility] Administration Protocol Senna 17.2 mg 02/02/19 13:33 Senokot PO QHS PRN Constipation Trazodone HCl 100 mg 02/02/19 22:00 02/03/19 23:20 Desyrel PO 100 mg QHS [facility] Administration
--- NOTE | 2019-02-04 09:51 | Discharge Summary ---
Providers - Providers Date of Admission: 02/02/19 12:49 Date of discharge: 02/04/19 Attending physician: NORTH PAINTER 02/02/19 13:32 Consult to Physician [CONS] Routine Comment: Consulting Provider: ETHEL GRAY Physician Instructions: Reason For Exam: ESRD 02/02/19 14:37 Physical Therapy Evaluation and Treat [CONS] Routine Comment: Reason For Exam: weakness Primary care physician: ABSTRACT CLERK Hospitalization Reason for admission: missed HD Condition: Critical Hospital course: 58 YO Female Assisted Living Facility Resident at [place] with ESRD on HD(T,R,Sa), HLD, CHF, HTN, Depression, GERD, DM presents to ED for evaluation. Pt reported being in her usual state of health. Her caregiver at [place] was concerned because she was "twitching". No reports of generalized tonic-clonic activity or bowel/bladder incontinence. EMS notified and A code stroke was called and the patient was transported to [facility]. PT seen and evaluated in ED. Teleneurology was notified. Pt was not found to be a candidate for TPA. Pt found to have ESRD. Nephrology consulted in ED. Pt did not have neurologic deficit or any lateralizing signs or symptoms or findings suggestive of CVA at any time during the hospitalization. Teleneurology recommended MRI which was ordered but patient refused per [facility] administration. CT scan was found to be unremarkable. Dedicated discharge time 32 minutes. Disposition: DC-01 TO HOME OR SELFCARE Time spent for discharge: 32 Core Measure Documentation - Palliative Care Palliative Care/ Comfort Measures: Not Applicable - Core Measures Any of the following diagnoses?: none Exam - Constitutional Vitals: Temp Pulse Resp BP Pulse Ox 98.3 F 80 20 133/61 100 02/04/19 04:22 02/04/19 04:22 02/04/19 04:22 02/04/19 04:22 02/04/19 04:22 General appearance: Present: no acute distress, well-nourished - EENT Eyes: Present: PERRL ENT: hearing intact, clear oral mucosa - Neck Neck: Present: supple, normal ROM - Respiratory Respiratory effort: normal Respiratory: bilateral: CTA - Cardiovascular Heart Sounds: Present: S1 & S2. Absent: rub, click - Extremities Extremities: pulses symmetrical, No edema Peripheral Pulses: within normal limits - Abdominal General gastrointestinal: Present: soft, non-tender, non-distended, normal bowel sounds Female genitourinary: Present: normal - Integumentary Integumentary: Present: clear, warm, dry - Musculoskeletal Musculoskeletal: gait normal, strength equal bilaterally - Psychiatric Psychiatric: appropriate mood/affect, intact judgment & insight - Neurologic Neurologic: CNII-XII intact, moves all extremities Plan Activity: advance as tolerated Weight Bearing Status: Weight Bear as Tolerated Follow up with: PRIMARY CARE, [Primary Care Provider] - 7 Days PERRI ROSALES DO [Staff Physician] - 7 Days Prescriptions: amLODIPine 10 mg PO DAILY #30 tablet traZODone [Desyrel] 100 mg PO QHS #30 tablet Gabapentin 400 mg PO Q8HR #20 cap Furosemide [Lasix TAB] 20 mg PO QDAY #30 tablet AtorvaSTATin [Lipitor] 80 mg PO QHS #30 tablet Sennosides Tab [Senokot] 17.2 mg PO QHS PRN #60 tablet PRN Reason: Constipation
[2019-02-04] MEDS: amLODIPine 10 MG TAB PO SCH (09:52)
[2019-02-04 12:24] VITALS: BP 103/58
--- NOTE | 2019-02-07 13:49 | Cat Scan Report ---
CT HEAD WITHOUT CONTRAST INDICATION : neuro deficits <6hrs or sx present upon awakening. TECHNIQUE: Axial imaging performed from the skull apex through the skull base without the use of con trast. Sagittal and coronal reformatted images. All CT scans at this location are performed using C T dose reduction for ALARA by means of automated exposure control. COMPARISON: 08/23/2017 FINDINGS: Parenchyma: No acute intracranial hemorrhage or parenchymal abnormality. Mild nonspecific chronic pe riventricular white matter changes are identified. 9 mm chronic chronic-appearing lacunar infarct is noted in the right anterior basal ganglia but this appears to be new since the previous exam. Ventricles: Ventricles are normal in size and appear symmetric. Bones: No acute osseous abnormality. Sinuses: Sinuses and mastoid air cells are clear. Soft tissues: Soft tissues including the orbits appear normal. IMPRESSION: No acute abnormality. Mild chronic white matter changes. Chronic lacunar infarct in the r ight anterior basal ganglia. If further evaluation is needed, MRI brain could be obtained. Signer Name: Flaco Brown Jr, MD Signed: 02/02/2019 11:47 AM Workstation Name: [id number]
== END 2019-02-04 15:30 | disposition home or self-care (01) ==
LOC: ED 11:29 → 3A 12:49
PROVIDERS: ADMIT Internal Medicine; ATTEND Hospitalist
DX: R29.810 Facial weakness (principal); M62.81 Muscle weakness (generalized); I13.2 Hypertensive heart and chronic kidney disease with heart failure and with stage 5 chronic kidney disease, or end stage renal disease; I50.9 Heart failure, unspecified; N18.6 End stage renal disease; E11.22 Type 2 diabetes mellitus with diabetic chronic kidney disease; E87.2 Acidosis; R53.81 Other malaise; F32.9 Major depressive disorder, single episode, unspecified; K21.9 Gastro-esophageal reflux disease without esophagitis; D64.9 Anemia, unspecified; R47.1 Dysarthria and anarthria; Z90.710 Acquired absence of both cervix and uterus; Z98.891 History of uterine scar from previous surgery; Z98.890 Other specified postprocedural states; Z79.4 Long term (current) use of insulin
CPT/HCPCS: 36415; 37195; 70450; 80048; 80061; 82962; 84484; 85025; 85610; 85670; 85730; 87116; 93005; 93010; 94760; 96372; 96374; 97161; 97530; 99291; A9270; G0378; J2997; J7030; J1815

== ENCOUNTER 2019-03-29 15:13 | Emergency (ER) | payer SELFPAY ==
--- NOTE | 2019-03-29 23:49 | Emergency Department Report ---
- General Chief Complaint: Wound/Laceration Stated Complaint: OPEN WOUND Time Seen by Provider: 03/29/19 23:07 Source: patient, police, EMS Mode of arrival: Ambulatory Limitations: No Limitations - History of Present Illness Initial Comments: Mrs. Boudreaux is a 59-year-old emergency room or history of DMII, hypertension, and, end-stage renal disease dialysis Tue,, Sat. Pt states she was sent by dialysis doctor for evaluation of bilat foot ulcers . pt denies pain , there is no fever, no mild drainage, pt kunal gauze dressing daily to heels . states ulcers are a recurring problem. Onset/Timin -: month(s) Extremity Location: Left: Foot (heel ulcers), Right: Foot Place: home Patient Tetanus UTD: Yes Context: other (ulcers heel bilat ) - Related Data Home Medications Medication Instructions Recorded Confirmed Last Taken Insulin Regular, Human 10 units SUB-Q QHS 01/25/19 02/02/19 01/24/19 22:00 Insulin Regular, Human [HumuLIN R] 5 unit SQ AC 01/25/19 02/02/19 01/17/19 Previous Rx's Medication Instructions Recorded Last Taken Type AtorvaSTATin [Lipitor] 80 mg PO QHS #30 tablet 02/04/19 Unknown Rx Furosemide [Lasix TAB] 20 mg PO QDAY #30 tablet 02/04/19 Unknown Rx Gabapentin 400 mg PO Q8HR #20 cap 02/04/19 Unknown Rx Sennosides Tab [Senokot] 17.2 mg PO QHS PRN #60 tablet 02/04/19 Unknown Rx amLODIPine 10 mg PO DAILY #30 tablet 02/04/19 Unknown Rx traZODone [Desyrel] 100 mg PO QHS #30 tablet 02/04/19 Unknown Rx Clindamycin [Clindamycin CAP] 300 mg PO Q6H 10 Days #40 capsule 03/30/19 Unknown Rx traMADoL [Ultram] 50 mg PO Q6HR PRN #12 tablet 03/30/19 Unknown Rx Allergies Allergy/AdvReac Type Severity Reaction Status Date / Time Penicillins Allergy Unknown Verified 10/30/18 11:25 Sulfa (Sulfonamide Allergy Unknown Verified 10/30/18 11:25 Antibiotics) ED Review of Systems ROS: Stated complaint: OPEN WOUND Other details as noted in HPI Constitutional: denies: chills, fever Eyes: denies: eye pain, eye discharge, vision change ENT: denies: ear pain, throat pain Respiratory: denies: cough, shortness of breath, wheezing Cardiovascular: denies: chest pain, palpitations Endocrine: no symptoms reported Gastrointestinal: denies: abdominal pain, nausea, diarrhea Genitourinary: denies: urgency, dysuria, discharge Musculoskeletal: arthralgia Skin: other (bilat heel ulcers). denies: rash, lesions Neurological: denies: headache, weakness, paresthesias Psychiatric: denies: anxiety, depression Hematological/Lymphatic: denies: easy bleeding, easy bruising ED Past Medical Hx - Past Medical History Hx Hypertension: Yes Hx Congestive Heart Failure: Yes Hx Diabetes: Yes Hx GERD: Yes Hx Renal Disease: Yes Hx Sickle Cell Disease: No Hx Psychiatric Treatment: Yes (depression) Hx Asthma: No Hx COPD: No Hx Tuberculosis: No Hx HIV: No Additional medical history: high cholesterol, neuropathy, ESRD-T,TH,S - Surgical History Additional Surgical History: , myomectomy, hysterectomy - Social History Smoking Status: Former Smoker - Medications Home Medications: Home Medications Medication Instructions Recorded Confirmed Last Taken Type Insulin Regular, Human 10 units SUB-Q QHS 01/25/19 02/02/19 01/24/19 22:00 History Insulin Regular, Human [HumuLIN R] 5 unit SQ AC 01/25/19 02/02/19 01/17/19 History AtorvaSTATin [Lipitor] 80 mg PO QHS #30 tablet 02/04/19 Unknown Rx Furosemide [Lasix TAB] 20 mg PO QDAY #30 tablet 02/04/19 Unknown Rx Gabapentin 400 mg PO Q8HR #20 cap 02/04/19 Unknown Rx Sennosides Tab [Senokot] 17.2 mg PO QHS PRN #60 tablet 02/04/19 Unknown Rx amLODIPine 10 mg PO DAILY #30 tablet 02/04/19 Unknown Rx traZODone [Desyrel] 100 mg PO QHS #30 tablet 02/04/19 Unknown Rx Clindamycin [Clindamycin CAP] 300 mg PO Q6H 10 Days #40 capsule 03/30/19 Unknown Rx traMADoL [Ultram] 50 mg PO Q6HR PRN #12 tablet 03/30/19 Unknown Rx ED Physical Exam - General Limitations: No Limitations General appearance: alert, in no apparent distress - Head Head exam: Present: atraumatic, normocephalic - Eye Eye exam: Present: normal appearance, PERRL, EOMI Pupils: Present: normal accommodation - ENT ENT exam: Present: mucous membranes moist - Neck Neck exam: Present: normal inspection, full ROM - Respiratory Respiratory exam: Present: normal lung sounds bilaterally. Absent: respiratory distress, wheezes, stridor, chest wall tenderness - Cardiovascular Cardiovascular Exam: Present: regular rate, normal rhythm, normal heart sounds. Absent: systolic murmur, diastolic murmur, rubs, gallop - GI/Abdominal GI/Abdominal exam: Present: soft, normal bowel sounds. Absent: distended, tenderness, bruit, hernia - Rectal Rectal exam: Present: deferred - Extremities Exam Extremities exam: Present: normal inspection, full ROM, normal capillary refill, other (bilat heel ulcers ) - Back Exam Back exam: Present: normal inspection, full ROM. Absent: tenderness, CVA tenderness (R), muscle spasm - Neurological Exam Neurological exam: Present: alert, oriented X3, CN II-XII intact, normal gait, reflexes normal. Absent: motor sensory deficit - Psychiatric Psychiatric exam: Present: normal affect, normal mood - Skin Skin exam: Present: warm, dry, intact, normal color, other (bilat heel ulcers 2x2 cm ). Absent: rash ED Medical Decision Making - Lab Data Result diagrams: 03/30/19 00:00 03/30/19 00:00 - Radiology Data Radiology results: report reviewed, image reviewed Ordering Physician: SAVANNA WOODS NP Date of Service: 03/29/19 Procedure(s): XR foot BILAT 2V Accession Number(s): [id number] cc: SAVANNA WOODS NP Fluoro Time In Minutes: EXAMINATION: Bilateral foot radiograph, 2 views, 03/29/2019 CLINICAL INFORMATION: Heel ulcers COMPARISON: No relevant prior studies are available for comparison. FINDINGS: Right foot: There is generalized soft tissue swelling of the right foot. Moderate bony degenerative changes are noted. Bony structures appear osteopenic. No focal destructive process is clearly identified. There is marked atherosclerotic vascular calcification. Left foot: There is generalized soft tissue swelling of the left foot. There is similar moderate bony degenerative change and subjective osteopenia. No definite focal destruc tive lesion is clearly visualized. There is marked atherosclerotic vascular calcification. IMPRESSION: 1. Bilateral soft tissue swelling. 2. Degenerative and osteopenic changes. Signer Name: Dolores Langford MD Signed: 03/30/2019 12:02 AM Workstation Name: [id number] Transcribed By: EB Dictated By: Dolores Langford MD Electronically Authenticated By: Dolores Langford MD Signed Date/Time: 03/30/19 0002 DD/ 0000 TD/TT: - Medical Decision Making X-rays negative for osteomyelitis, no white count plan clindamycin, Ultram, follow with PCP in 2-3 days, patient verbalizes agreement and understanding of discharge plan, will be DC'd home in stable condition at this time. Critical care attestation.: If time is entered above; I have spent that time in minutes in the direct care of this critically ill patient, excluding procedure time. ED Disposition Clinical Impression: Skin ulcers of foot, bilateral Disposition: DC-01 TO HOME OR SELFCARE Is pt being admited?: No Does the pt Need Aspirin: No Condition: Stable Instructions: Diabetic Foot Ulcers (ED) Prescriptions: Clindamycin [Clindamycin CAP] 300 mg PO Q6H 10 Days #40 capsule traMADoL [Ultram] 50 mg PO Q6HR PRN #12 tablet PRN Reason: Pain Referrals: [facility] [Outside] - 3-5 Days Time of Disposition: 01:36
--- NOTE | 2019-03-30 00:07 | XRay Report ---
EXAMINATION: Bilateral foot radiograph, 2 views, 03/29/2019 CLINICAL INFORMATION: Heel ulcers COMPARISON: No relevant prior studies are available for comparison. FINDINGS: Right foot: There is generalized soft tissue swelling of the right foot. Moderate bony degenerative c hanges are noted. Bony structures appear osteopenic. No focal destructive process is clearly identifi ed. There is marked atherosclerotic vascular calcification. Left foot: There is generalized soft tissue swelling of the left foot. There is similar moderate bony degenerative change and subjective osteopenia. No definite focal destructive lesion is clearly visua lized. There is marked atherosclerotic vascular calcification. IMPRESSION: 1. Bilateral soft tissue swelling. 2. Degenerative and osteopenic changes. Signer Name: Dolores Langford MD Signed: 03/30/2019 12:02 AM Workstation Name: [email or web address]
[2019-03-30 00:52] LABS: Mean Corpuscular HGB Conc 31 % (30-34); Mean Corpuscular Volume 81 fl (79-97); Platelet Count 217 K/mm3 (140-440); Red Cell Distribution Width 16.3 % (13.2-15.2)
[2019-03-30 00:53] LABS: Hemoglobin 14.9 gm/dl (10.1-14.3)
[2019-03-30 01:09] LABS: Calcium 7.8 mg/dL (8.4-10.2)
[2019-03-30] MEDS ORDERED: traMADol 50 MG TAB PO ONE (01:32)
[2019-03-30 02:52] VITALS: BP 148/88
== END 2019-03-30 02:51 | disposition home or self-care (01) ==
LOC: ED 15:13
DX: L97.519 Non-pressure chronic ulcer of other part of right foot with unspecified severity (principal); L97.529 Non-pressure chronic ulcer of other part of left foot with unspecified severity; E11.621 Type 2 diabetes mellitus with foot ulcer; I11.0 Hypertensive heart disease with heart failure; I50.9 Heart failure, unspecified; K21.9 Gastro-esophageal reflux disease without esophagitis; F32.9 Major depressive disorder, single episode, unspecified; E78.00 Pure hypercholesterolemia, unspecified; Z90.710 Acquired absence of both cervix and uterus; Z87.891 Personal history of nicotine dependence; Z79.899 Other long term (current) drug therapy; Z88.0 Allergy status to penicillin; Z88.2 Allergy status to sulfonamides
CPT/HCPCS: 36415; 80053; 85027

== ENCOUNTER 2019-04-17 14:47 | Emergency (ER) | payer SELFPAY ==
--- NOTE | 2019-04-17 14:55 | Emergency Department Report ---
Blank Doc - Documentation Documentation: 59-year-old female that presents with right sided port complications. This initial assessment/diagnostic orders/clinical plan/treatment(s) is/are subject to change based on patient's health status, clinical progression and re- assessment by fellow clinical providers in the ED. Further treatment and workup at subsequent clinical providers discretion. Patient/guardians urged not to elope from the ED as their condition may be serious if not clinically assessed and managed. Initial orders include: 1- Patient sent to [facility] for further evaluation and treatment
--- NOTE | 2019-04-17 21:55 | Emergency Department Report ---
ED General Adult HPI - General Chief complaint: Medical Clearance Stated complaint: LFT CHEST PORT PAIN Time Seen by Provider: 04/17/19 14:55 Source: patient, EMS (EMS records not available for chart review at this time), RN notes reviewed, old records reviewed Mode of arrival: Wheelchair Limitations: No Limitations - History of Present Illness Initial comments: Nephrology: Dr. Gray Patient is a pleasant 59-year-old female, on hemodialysis secondary to end-stage renal disease, high cholesterol, hypertension, depression, GERD, diabetes Her last dialysis session was yesterday. It was approximately 3 hours. The patient presents to the ER with concern that her right-sided dialysis access catheter, is not working. She reports that she received her dialysis yesterday, but "the machine was pulling pretty hard." She also endorses some discomfort over her Vas-Cath. She has no additional complaints. -: days(s) (1) Quality: aching Consistency: intermittent Improves with: rest Worsens with: other (worsens with palpation and hemodialysis) - Related Data Home Medications Medication Instructions Recorded Confirmed Last Taken Insulin Regular, Human 10 units SUB-Q QHS 01/25/19 02/02/19 01/24/19 22:00 Insulin Regular, Human [HumuLIN R] 5 unit SQ AC 01/25/19 02/02/19 01/17/19 Previous Rx's Medication Instructions Recorded Last Taken Type AtorvaSTATin [Lipitor] 80 mg PO QHS #30 tablet 02/04/19 Unknown Rx Furosemide [Lasix TAB] 20 mg PO QDAY #30 tablet 02/04/19 Unknown Rx Gabapentin 400 mg PO Q8HR #20 cap 02/04/19 Unknown Rx Sennosides Tab [Senokot] 17.2 mg PO QHS PRN #60 tablet 02/04/19 Unknown Rx amLODIPine 10 mg PO DAILY #30 tablet 02/04/19 Unknown Rx traZODone [Desyrel] 100 mg PO QHS #30 tablet 02/04/19 Unknown Rx Clindamycin [Clindamycin CAP] 300 mg PO Q6H 10 Days #40 capsule 03/30/19 Unknown Rx traMADoL [Ultram] 50 mg PO Q6HR PRN #12 tablet 03/30/19 Unknown Rx Allergies Allergy/AdvReac Type Severity Reaction Status Date / Time Penicillins Allergy Unknown Verified 10/30/18 11:25 Sulfa (Sulfonamide Allergy Unknown Verified 10/30/18 11:25 Antibiotics) ED Review of Systems ROS: Stated complaint: LFT CHEST PORT PAIN Other details as noted in HPI Constitutional: denies: fever Eyes: denies: eye discharge ENT: denies: congestion Respiratory: denies: wheezing Cardiovascular: denies: syncope Gastrointestinal: denies: abdominal pain Genitourinary: denies: dysuria Skin: denies: lesions Hematological/Lymphatic: denies: easy bleeding ED Past Medical Hx - Past Medical History Previous Medical History?: Yes Hx Hypertension: Yes Hx Congestive Heart Failure: Yes Hx Diabetes: Yes Hx GERD: Yes Hx Renal Disease: Yes Hx Sickle Cell Disease: No Hx Psychiatric Treatment: Yes (depression) Hx Asthma: No Hx COPD: No Hx Tuberculosis: No Hx HIV: No Additional medical history: high cholesterol, neuropathy, ESRD-T,TH,S - Surgical History Past Surgical History?: Yes Additional Surgical History: , myomectomy, hysterectomy - Social History Smoking Status: Never Smoker Substance Use Type: None - Medications Home Medications: Home Medications Medication Instructions Recorded Confirmed Last Taken Type Insulin Regular, Human 10 units SUB-Q QHS 01/25/19 02/02/19 01/24/19 22:00 History Insulin Regular, Human [HumuLIN R] 5 unit SQ AC 01/25/19 02/02/19 01/17/19 History AtorvaSTATin [Lipitor] 80 mg PO QHS #30 tablet 02/04/19 Unknown Rx Furosemide [Lasix TAB] 20 mg PO QDAY #30 tablet 02/04/19 Unknown Rx Gabapentin 400 mg PO Q8HR #20 cap 02/04/19 Unknown Rx Sennosides Tab [Senokot] 17.2 mg PO QHS PRN #60 tablet 02/04/19 Unknown Rx amLODIPine 10 mg PO DAILY #30 tablet 02/04/19 Unknown Rx traZODone [Desyrel] 100 mg PO QHS #30 tablet 02/04/19 Unknown Rx Clindamycin [Clindamycin CAP] 300 mg PO Q6H 10 Days #40 capsule 03/30/19 Unknown Rx traMADoL [Ultram] 50 mg PO Q6HR PRN #12 tablet 03/30/19 Unknown Rx ED Physical Exam - General Limitations: No Limitations, Other (during the entire history and physical examination, 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 Absent: nystagmus - ENT ENT exam: Present: normal exam, normal orophraynx, mucous membranes moist, normal external ear exam - Neck Neck exam: Present: normal inspection, full ROM. Absent: tenderness, meningismus - Respiratory Respiratory exam: Present: normal lung sounds bilaterally, other (there is no redness, pus or streaking over the right-sided vas cath). Absent: respiratory distress, chest wall tenderness - Cardiovascular Cardiovascular Exam: Present: regular rate, normal rhythm, normal heart sounds. Absent: bradycardia, tachycardia, irregular rhythm, systolic murmur, diastolic murmur, rubs, gallop - GI/Abdominal GI/Abdominal exam: Present: soft. Absent: distended, tenderness, guarding, rebound, rigid, pulsatile mass - Extremities Exam Extremities exam: Present: normal inspection, full ROM, pedal edema, other (2+ pulses noted in the bilateral upper and lower extremities2+ pulses noted in the bilateral upper and lower extremities. There is no long bony tenderness. The pelvis is stable. The muscular compartments are soft. There is no palpable cord. There is no redness, pus or streaking. Chronic bilateral lower extremity edema). Absent: calf tenderness - Back Exam Back exam: Present: normal inspection, full ROM. Absent: tenderness, CVA tenderness (R), CVA tenderness (L), paraspinal tenderness, vertebral tenderness - Neurological Exam Neurological exam: Present: alert, other (there is no facial droop. Tongue is midline. Extraocular movements are intact bilaterally. Walking with a steady gait. Speaking in full sentences. Normal appropriate thought content. 5 out of 5 strength in 4 extremities. Sensation is intact to light touch in 4 extremities.). Absent: motor sensory deficit - Psychiatric Psychiatric exam: Present: normal affect, normal mood - Skin Skin exam: Present: warm, dry, intact, normal color. Absent: rash ED Course Vital Signs 04/17/19 14:55 Temperature 98 F Pulse Rate 88 Respiratory 20 Rate Blood Pressure 194/110 O2 Sat by Pulse 100 Oximetry - Consultations Consultation #1: 04/17/19 23:12 Discussed history, physical, x-ray findings, laboratory studies with nephrology, Dr. Arndt, who indicates he will coordinate outpatient management for patient's concerns. We both agree the patient is suitable for discharge at this point time. ED Medical Decision Making - Lab Data Result diagrams: 04/17/19 22:04 04/17/19 22:04 Vital Signs 04/17/19 14:55 Temperature 98 F Pulse Rate 88 Respiratory 20 Rate Blood Pressure 194/110 O2 Sat by Pulse 100 Oximetry Lab Results 04/17/19 04/17/19 04/17/19 Range/Units 22:04 22:04 22:04 WBC 7.6 (4.5-11.0) K/mm3 RBC 5.54 H (3.65-5.03) M/mm3 Hgb 13.8 (10.1-14.3) gm/dl Hct 43.6 H (30.3-42.9) % MCV 79 (79-97) fl MCH 25 L (28-32) pg MCHC 32 (30-34) % RDW 15.1 (13.2-15.2) % Plt Count 301 (140-440) K/mm3 PT 11.9 L (12.2-14.9) Sec. INR 0.87 (0.87-1.13) Sodium 130 L (137-145) mmol/L Potassium 3.3 L (3.6-5.0) mmol/L Chloride 92.3 L (98-107) mmol/L Carbon Dioxide 23 (22-30) mmol/L Anion Gap 18 mmol/L BUN 20 H (7-17) mg/dL Creatinine 2.6 H (0.7-1.2) mg/dL Estimated GFR 23 ml/min BUN/Creatinine Ratio 8 % Glucose 439 H (65-100) mg/dL Calcium 8.5 (8.4-10.2) mg/dL - EKG Data 04/17/19 22:59 EKG today shows a sinus rhythm, 72 bpm, normal axis, QTC 418 ms, poor R progression, no endorsement of chest pain, borderline low voltage, not consistent with STEMI. Unchanged from prior from 2018. - Radiology Data Radiology results: report reviewed, image reviewed Print Report Referring Physician: PHOENIX ZULETA Patient Name: BRIDGET BRITTON Date of : 1960 Sex: Female Report Date: 2019-04-17 Report Status: Finalized Findings [facility] [address] [place] [address] XRay Report Signed Patient: BRIDGET BRITTON MR#: [id number] 9 : 1960 Acct:[id number] Age/Sex: 59 / F ADM Date: 04/17/19 Loc: ED Attending Dr: Ordering Physician: PHOENIX ZULETA MD Date of Service: 04/17/19 Procedure(s): XR chest 1V ap Accession Number(s): [id number] cc: PHOENIX ZULETA MD Fluoro Time In Minutes: CHEST 1 VIEW 2210 INDICATION / CLINICAL INFORMATION: VAS CATH SYMPTOMS MAL POSITION. COMPARISON: 01/25/2019 FINDINGS: SUPPORT DEVICES: Multilumen catheter appears unchanged HEART / MEDIASTINUM: Stable LUNGS / PLEURA: No significant pulmonary or pleural abnormality. No pneumothorax. ADDITIONAL FINDINGS: No significant additional findings. IMPRESSION: No significant changes Signer Name: Rob Mancera MD Signed: 04/17/2019 10:37 PM Workstation Name: [id number] Transcribed By: GJ Dictated By: Rob Mancera MD Electronically Authenticated By: Rob Mancera MD Signed Date/Time: 04/17/192236 DD/ 35 - Medical Decision Making Differential diagnosis, including without limited to: Catheter malfunction, c atheter stenosis, catheter occlusion, catheter malposition, chronic renal insufficiency, electrolyte derangement Assessment and plan: 59-year-old female with concern that her hemodialysis catheter is not working as well as it should. On clinical exam, she is afebrile with reassuring vital signs with the exception of chronic hypertension, and there is no evidence of abscess, cellulitis or infectious process around the catheter site. Her x-ray of the chest is unremarkable and she has clear lungs. Her electrolytes do not indicate that she requires emergent hemodialysis. This patient does not have an emergent medical condition at this time and does not meet criteria for hospitalization or admission at this time. She will need to follow-up with her outpatient elevator operator freight or a vascular surgeon for further evaluation of her vascular access catheter. As a courtesy, I will discuss with her elevator operator freight of record to help coordinate. Critical care attestation.: If time is entered above; I have spent that time in minutes in the direct care of this critically ill patient, excluding procedure time. ED Disposition Clinical Impression: ESRD needing dialysis, Vascular dialysis catheter in place Disposition: DC- TO HOME OR SELFCARE Is pt being admited?: No Does the pt Need Aspirin: No Condition: Stable Additional Instructions: Continue outpatient medications as scheduled. Recommend contacting her private elevator operator freight as soon as possible, or a vascular surgeon as soon as possible to further evaluate vascular access catheter. Please return to the emergency room right away with new, worse or different symptoms, or symptoms not present on the initial emergency room evaluation. Referrals: ETHEL GRAY MD [Staff Physician] - 3-5 Days EDGAR KING MD [Staff Physician] - 3-5 Days Time of Disposition: 23:04 (d/c back to [facility])
[2019-04-17 22:10] LABS: Hematocrit 43.6 % (30.3-42.9); Hemoglobin 13.8 gm/dl (10.1-14.3); Mean Corpuscular HGB Conc 32 % (30-34); Mean Corpuscular Volume 79 fl (79-97); Platelet Count 301 K/mm3 (140-440); Red Blood Count 5.54 M/mm3 (3.65-5.03); Red Cell Distribution Width 15.1 % (13.2-15.2)
[2019-04-17 22:30] LABS: Calcium 8.5 mg/dL (8.4-10.2)
[2019-04-17 22:36] LABS: INR 0.87 (0.87-1.13)
--- NOTE | 2019-04-17 22:41 | XRay Report ---
CHEST 1 VIEW 2210 INDICATION / CLINICAL INFORMATION: VAS CATH SYMPTOMS MAL POSITION. COMPARISON: 01/25/2019 FINDINGS: SUPPORT DEVICES: Multilumen catheter appears unchanged HEART / MEDIASTINUM: Stable LUNGS / PLEURA: No significant pulmonary or pleural abnormality. No pneumothorax. ADDITIONAL FINDINGS: No significant additional findings. IMPRESSION: No significant changes Signer Name: Rob Mancera MD Signed: 04/17/2019 10:37 PM Workstation Name: [id number]
[2019-04-18] MEDS ORDERED: cloNIDine 0.1 MG TAB PO ONE (00:02)
[2019-04-18 00:48] VITALS: BP 190/92
== END 2019-04-18 00:55 | disposition home or self-care (01) ==
LOC: ED 14:47
DX: I13.2 Hypertensive heart and chronic kidney disease with heart failure and with stage 5 chronic kidney disease, or end stage renal disease (principal); I50.9 Heart failure, unspecified; E11.22 Type 2 diabetes mellitus with diabetic chronic kidney disease; N18.6 End stage renal disease; F32.9 Major depressive disorder, single episode, unspecified; K21.9 Gastro-esophageal reflux disease without esophagitis; E78.00 Pure hypercholesterolemia, unspecified; Z90.710 Acquired absence of both cervix and uterus; Z98.890 Other specified postprocedural states; Z99.2 Dependence on renal dialysis; Z79.899 Other long term (current) drug therapy; Z88.0 Allergy status to penicillin; Z88.2 Allergy status to sulfonamides; Z95.828 Presence of other vascular implants and grafts
CPT/HCPCS: 36415; 71045; 80048; 85027; 85610; 93005; 93010

== ENCOUNTER 2019-06-29 10:09 | Outpatient (CLI) | payer MEDICARE ==
[2019-06-29] MEDS ORDERED: LIDOCAINE (4%) 40 MG/ML TOPICAL SOLN 50 ML BOTTLE TP ONE (11:00)
== END 2019-06-29 10:10 | disposition home or self-care (01) ==
LOC: WOUND 10:09
PROVIDERS: ATTEND Surgery
DX: E11.621 Type 2 diabetes mellitus with foot ulcer (principal); L97.513 Non-pressure chronic ulcer of other part of right foot with necrosis of muscle; L97.412 Non-pressure chronic ulcer of right heel and midfoot with fat layer exposed; L97.423 Non-pressure chronic ulcer of left heel and midfoot with necrosis of muscle; E11.22 Type 2 diabetes mellitus with diabetic chronic kidney disease; I12.0 Hypertensive chronic kidney disease with stage 5 chronic kidney disease or end stage renal disease; N18.6 End stage renal disease; Z99.2 Dependence on renal dialysis; Z87.891 Personal history of nicotine dependence
CPT/HCPCS: 11042; 11043; 11045; 11046; G0463; 82962; 99214

== ENCOUNTER 2019-07-20 10:31 | Outpatient (CLI) | payer MEDICARE ==
[2019-07-20] MEDS ORDERED: LIDOCAINE (4%) 40 MG/ML TOPICAL SOLN 50 ML BOTTLE TP ONE (10:32)
== END 2019-07-20 10:32 | disposition home or self-care (01) ==
LOC: WOUND 10:31
PROVIDERS: ATTEND Surgery
DX: E11.621 Type 2 diabetes mellitus with foot ulcer (principal); L97.513 Non-pressure chronic ulcer of other part of right foot with necrosis of muscle; L97.412 Non-pressure chronic ulcer of right heel and midfoot with fat layer exposed; L97.423 Non-pressure chronic ulcer of left heel and midfoot with necrosis of muscle; E11.42 Type 2 diabetes mellitus with diabetic polyneuropathy; I12.0 Hypertensive chronic kidney disease with stage 5 chronic kidney disease or end stage renal disease; N18.6 End stage renal disease; Z99.2 Dependence on renal dialysis; Z87.891 Personal history of nicotine dependence
CPT/HCPCS: 82962

== ENCOUNTER 2019-09-28 05:45 | Day surgery (SDC) | payer MEDICARE ==
[~2019-09-28 05:45] MED LIST: BUPIVACAINE/PF (0.5%) 5 MG/1 ML 10 ML VIAL INFILTRATI ONE; SODIUM CHLORIDE 0.9% IRR 1,500 ML BOTTLE IR ONE; rifAMPin 600 MG VIAL IV ONE
[2019-09-28] MEDS ORDERED: BACTERIOSTATIC SODIUM CHLORIDE 0.9% 30 ML VIAL INFILTRATI ONE (06:28)
[2019-09-28] MEDS ORDERED: SODIUM CHLORIDE 0.9% 1000 ML 1,000 ML IV SCH (06:30)
[2019-09-28 07:08] LABS: Hematocrit 37.5 % (30.3-42.9); Hemoglobin 12.4 gm/dl (10.1-14.3); Mean Corpuscular HGB Conc 33 % (30-34); Mean Corpuscular Volume 77 fl (79-97); Platelet Count 294 K/mm3 (140-440); Red Blood Count 4.87 M/mm3 (3.65-5.03); Red Cell Distribution Width 17.2 % (13.2-15.2)
[2019-09-28] MEDS ORDERED: BUPIVACAINE/PF (0.5%) 5 MG/1 ML 10 ML VIAL INFILTRATI ONE ×2 (07:21→10:25)
[2019-09-28] MEDS ORDERED: HEPARIN 10,000 UNITS/10 ML VIAL ONE (07:21)
[2019-09-28] MEDS ORDERED: SODIUM CHLORIDE 0.9% 500 ML 500 ML ONE (07:21)
[2019-09-28] MEDS ORDERED: PROTAMINE SULFATE 50 MG/5 ML INJ ONE (07:22)
[2019-09-28] MEDS ORDERED: PAPAVERINE 60 MG/2 ML INJ SDV ONE (07:22)
--- NOTE | 2019-09-28 07:22 | Anesthesia Consultation ---
Anesthesia Consult and Med Hx Date of service: 09/28/19 - Airway Anesthetic Teeth Evaluation: Poor ROM Head & Neck: Adequate Mental/Hyoid Distance: Adequate Mallampati Class: Class II Intubation Access Assessment: Good - Pulmonary Exam CTA: Yes - Cardiac Exam Cardiac Exam: RRR - Pre-Operative Health Status ASA Pre-Surgery Classification: ASA4 Proposed Anesthetic Plan: MAC Nerve Block: supraclavicular block - Pulmonary Hx Smoking: Yes (Quit February 2019) Hx Asthma: No Hx Respiratory Symptoms: No SOB: No COPD: No Hx Pneumonia: No Hx Sleep Apnea: No (MILAGROS PRE SCREEN HIGH RISK) - Cardiovascular System Hx Hypertension: Yes Hx Coronary Artery Disease: No Hx Heart Attack/AMI: Yes (HX NON-ST ELEVATED IA- SEE EKG 04/17/19-IN REPORTS) Hx Angina: No Hx Percutaneous Transluminal Coronary Angioplasty (PTCA): No Hx Cardia Arrhythmia: No Hx Pacemaker: No Hx Internal Defibrillator: No Hx Valvular Heart Disease: No Hx Heart Murmur: Yes Hx Peripheral Vascular Disease: Yes - Central Nervous System Hx Neuromuscular Disorder: No Hx Seizures: No CVA: No Hx Back Pain: Yes (Comes and goes) Hx Psychiatric Problems: Yes (Anxiety and Depression) - Gastrointestinal Hx Gastroesophageal Reflux Disease: No - Endocrine Hx Renal Disease: Yes (Dialysis T, Th, Sat) Hx End Stage Renal Disease: Yes (RT SIDE CATHETER) Hx Insulin Dependent Diabetes: Yes Hx Non-Insulin Dependent Diabetes: No Hx Thyroid Disease: No - Hematic Hx Anemia: Yes Hx Sickle Cell Disease: No - Other Systems Hx Alcohol Use: No Hx Substance Use: No Hx Cancer: No Hx Obesity: No
[2019-09-28] MEDS ORDERED: THROMBIN (RECOMBINANT) 5,000 UNIT VIAL TP ONE (07:23)
[2019-09-28] MEDS ORDERED: GELATIN SPONGE SIZE 100 TP ONE (07:23)
--- NOTE | 2019-09-28 07:23 | Anesthesia Day of Surgery ---
Anesthesia Day of Surgery - Day of Surgery Patient Examined: Yes Patient H&P Reviewed: Yes Patient is NPO: Yes Beta Blockers: Yes
[2019-09-28] MEDS ORDERED: rifAMPin 600 MG VIAL ONE (07:24)
[2019-09-28] MEDS ORDERED: ONDANSETRON 4 MG/2 ML INJ IV PRN ×2 (07:28→11:14)
[2019-09-28] MEDS ORDERED: MIDAZOLAM 2 MG/2 ML INJ IV ONE (07:30)
[2019-09-28 07:31] LABS: Calcium 8.9 mg/dL (8.4-10.2)
[2019-09-28] MEDS ORDERED: fentaNYL 100 MCG/2 ML INJ IV ONE (07:31)
[2019-09-28] MEDS ORDERED: HYDROmorphone 1 MG/1 ML INJ ONE ×2 (07:32→11:17)
[2019-09-28] MEDS ORDERED: propofoL 200 MG/20 ML VIAL IV ONE (07:33)
[2019-09-28] MEDS ORDERED: LIDOCAINE MPF (2%) 20 MG/1 ML VIAL 5 ML ONE (07:33)
[2019-09-28] MEDS ORDERED: LIDOCAINE (1%) 10 MG/1 ML VIAL 20 ML MDV ONE (07:51)
[2019-09-28] MEDS ORDERED: BUPIVACAINE/PF (0.5%) 5 MG/1 ML 30 ML VIAL INFILTRATI ONE (07:51)
[2019-09-28] MEDS ORDERED: LACTATED RINGERS 1,000 ML IV SCH (08:00)
--- NOTE | 2019-09-28 08:44 | Progress Note ---
Regional Anesthesia Block - Regional Anesthesia Block Start Time: :59 Stop Time: :07 Performed By:: ISAI SALDANA Procedure: Left Supraclavicular Block with Ultrasound Pt Id, consent, time out; performed. Pt on monitor, VSS stable, sedation given per pre-op RN. Sterile prep and drape. Landmarks Identified with ultrasound. 3cc 1% lido skin wheel. Needle advance in plane, 15cc .5% bupivacaine injected intimately with negatives aspiration. Pt tolerated procedure will, VSS stable.
[2019-09-28] MEDS ORDERED: HEPARIN 10,000 UNITS/10 ML VIAL IV ONE (09:38)
[2019-09-28] MEDS ORDERED: SODIUM CHLORIDE 0.9% 500 ML IVPB IV ONE (09:38)
[2019-09-28] MEDS ORDERED: SODIUM CHLORIDE 0.9% IRR 1,500 ML BOTTLE IR ONE (09:46)
[2019-09-28] MEDS ORDERED: rifAMPin 600 MG VIAL IV ONE (09:46)
[2019-09-28] MEDS ORDERED: ONDANSETRON 4 MG/2 ML INJ ONE (10:31)
--- NOTE | 2019-09-28 10:58 | Short Stay Summary ---
Short Stay Documentation Date of service: 09/28/19 Narrative H&P: See H&P - History H&P: obtained from office - Allergies and Medications Current Medications: Allergies Penicillins Allergy (Verified 10/30/18 11:25) Unknown Sulfa (Sulfonamide Antibiotics) Allergy (Verified 10/30/18 11:25) Unknown Home Medications Medication Instructions Recorded Confirmed Last Taken Type AtorvaSTATin [Lipitor] 80 mg PO QHS #30 tablet 02/04/19 09/28/19 09/27/19 21:00 Rx Sennosides Tab [Senokot] 17.2 mg PO QHS PRN #60 tablet 02/04/19 09/28/19 09/27/19 09:00 Rx amLODIPine 10 mg PO DAILY #30 tablet 02/04/19 09/28/19 09/27/19 09:00 Rx traZODone [Desyrel] 100 mg PO QHS #30 tablet 02/04/19 09/28/19 09/27/19 21:00 Rx Aspirin EC [Halfprin EC] 81 mg PO QDAY tablet 05/30/19 09/28/19 09/27/19 09:00 Rx Clopidogrel [Plavix] 75 mg PO QDAY tablet 05/30/19 09/28/19 09/27/19 09:00 Rx Epoetin Idris 10,000 Unit [Procrit] 10,000 unit IV ERNESTINA PRN vial 05/30/19 09/26/19 Unknown Rx Lispro Insulin [HumaLOG] 0 unit SUB-Q ACHS units 05/30/19 09/28/19 09/27/19 17:00 Rx Oxycodone HCl/Acetaminophen 1 each PO Q6HR PRN #20 tablet 05/30/19 09/26/19 Unknown Rx [Percocet 7.5/325 mg] Pantoprazole [Protonix TAB] 40 mg PO QDAY tablet 05/30/19 09/28/19 09/27/19 09:00 Rx traMADoL [Ultram 50 MG tab] 50 mg PO Q6HR PRN #20 tablet 05/30/19 09/28/19 09/27/19 21:00 Rx Pregabalin 100 mg PO BID 09/26/19 09/28/19 09/27/19 21:00 History Active Medications Clindamycin HCl (Cleocin 900 Mg/50 Ml) 900 mg in 50 mls @ 100 mls/hr IV PREOP NR; Protocol Stop: 09/28/19 23:59 Sodium Chloride (Nacl 0.9% 1000 Ml) 1,000 mls @ 42 mls/hr IV DIRECT LUCA Last Admin: 09/28/19 07:35 Dose: 42 mls/hr Documented by: Lactated Ringer's (Lactated Ringers) 1,000 mls @ 42 mls/hr IV DIRECT LUCA Ondansetron HCl (Zofran) 4 mg IV ONCE PRN PRN Reason: Nausea And Vomiting - Brief post op/procedure progress note Date of procedure: 09/28/19 Pre-op diagnosis: End-Stage Renal Disease Post-op diagnosis: same Procedure: Creation of Left Brachial Artery to Axillary Vein Arteriovenous Graft with 5 mm Bovine Artegraft Anesthesia: MAC, regional Surgeon: CLARK TORRES Estimated blood loss: minimal Pathology: none Condition: stable - Disposition Condition at discharge: Good Disposition: DC-[id number] TO HOME OR SELFCARE Short Stay Discharge Plan Activity: other (No heavy lifting with left arm) Wound: open to air, keep clean and dry, other (Okay to wash the wounds with soap and water but do not soak in water for 2 weeks.) Follow up with: CLARK TORRES MD [Staff Physician] - 14 Days Prescriptions: HYDROcodone/APAP 7.5-325 [[place] 7.5/325] 1 each PO Q6HR PRN #30 tablet PRN Reason: Pain
--- NOTE | 2019-09-28 11:00 | Operative Report ---
Operative Report Operative Report: Date of procedure: 09/28/2019 Pre-operative diagnosis: End-Stage Renal Disease Post-operative diagnosis: Same Procedure(s): 1. Creation of Left Brachial Artery to Axillary Vein AV Graft with 5 mm Bovine Graft Artergraft Surgeon: Myke Marroquin MD Hematologist Oncologist: None Anesthesia: Regional/MAC EBL: Minimal Counts: Correct Complications: None Condition: Stable Findings: Successful Creation of Left Arm AV Graft Specimen: None Indication: The patient is a 59-year-old female with a history of end-stage renal disease who is currently on hemodialysis through a right internal jugular permacath. She is in need of permanent access and vein mapping demonstrated she was not a candidate for creation of an AV fistula so she requires creation of an AV graft. She was given the risk, benefits, and alternative procedures and consented to the procedure. Description of Procedure: Prior to being transported to the operating room the patient had a regional block of the left arm performed in the preoperative area. She was then transported to the operating room and anesthesia was administered to adequately sedate the patient. The patient's left arm was then prepped and draped in normal sterile fashion. A longitudinal incision was made on the medial aspect of the arm just proximal to the antecubital crease and carried down to the brachial artery using sharp dissection. The brachial artery was dissected out circumferentially both proximally and distally and controlled with vessel loops. A second incision was created in longitudinal fashion on the medial aspect of the arm just distal to the axillary crease and carried down to the axillary vein using sharp dissection. Axillary vein was dissected out circumferentially and controlled with a vessel loop. I then used a Ileana-Wick tunneler to tunnel from the brachial artery incision to the axillary vein incision and then put an 5 mm bovine through the tunnel. I infused with heparinized saline to ensure that it was not twisted or kinked. I put the brachial artery vessel loops on tension controlling the flow and then created an arteriotomy using an 11 blade and Sheppard scissors. I beveled the graft and created an end-to-side anastomosis using 6-0 Prolene running fashion. I clamped the graft just proximal to the anastomosis and then released the vessel loops restoring flow in the brachial artery. I placed quick clot in incision to achieve hemostasis. I cut the proximal end of the graft to the appropriate length and beveled the graft in preparation for a venous anastomosis. I controlled the axillary vein a Satinsky clamp and created a venotomy using an 11 blade and Sheppard scissors. I created an end to side anastomosis using a 6-0 Prolene in running fashion. Prior to completing the anastomosis I flushed the graft to ensure there was no thrombus and then completed the anastamosis. I released all clamps allowing flow into the AV graft which had an excellent thrill. I packed the wound with quick clot to achieve hemostasis. I anesthetized both wounds with 0.5% Marcaine and then closed both wounds in 2 layers using 3-0 Vicryl in running fashion in the deep dermal layer and 4-0 Monocryl in running fashion the subcuticular layer. I dressed both wounds with Dermabond. The patient tolerated the procedure well all sponge needle and instrument counts were correct the patient was taken to recovery in stable condition.
[2019-09-28] MEDS ORDERED: HYDROmorphone 1 MG/1 ML INJ IV PRN (11:14)
--- NOTE | 2019-09-28 11:23 | Post Anesthesia Evaluation ---
- Post Anesthesia Evaluation Patient Participated: Yes Airway Patent: Yes Stable Respiratory Function: Yes
[2019-09-28 13:40] VITALS: BP 138/70
== END 2019-09-28 13:30 | disposition home or self-care (01) ==
LOC: OR 05:45
PROVIDERS: ATTEND Surgery Vascular Surgery
DX: I12.0 Hypertensive chronic kidney disease with stage 5 chronic kidney disease or end stage renal disease (principal); N18.6 End stage renal disease; E78.00 Pure hypercholesterolemia, unspecified; K21.9 Gastro-esophageal reflux disease without esophagitis; M19.90 Unspecified osteoarthritis, unspecified site; E11.22 Type 2 diabetes mellitus with diabetic chronic kidney disease; F32.9 Major depressive disorder, single episode, unspecified; F41.9 Anxiety disorder, unspecified; D64.9 Anemia, unspecified; Z98.890 Other specified postprocedural states; Z83.3 Family history of diabetes mellitus; Z90.710 Acquired absence of both cervix and uterus; Z98.891 History of uterine scar from previous surgery; Z84.1 Family history of disorders of kidney and ureter
CPT/HCPCS: 36415; 36830; 80048; 82962; 85027; A4649; C1768; J1170; J1644; J2250; J2405; J2704; J3010; J3490; J7030; J7040; 64450; J2440; J2720